=== PATIENT | female | born 1935 | race Caucasian/White ===

== ENCOUNTER 2017-07-22 09:44 | Outpatient (CLI) | payer MEDICARE, OTHER ==
[2017-07-22] MEDS ORDERED: ISOVUE-370 76%-LOCM 1 ML ONE (13:37)
== END 2017-07-22 09:45 | disposition home or self-care (01) ==
LOC: BICCT 09:44
PROVIDERS: ATTEND Urology
DX: R31.0 Gross hematuria (principal); N28.89 Other specified disorders of kidney and ureter; N20.0 Calculus of kidney; K57.30 Diverticulosis of large intestine without perforation or abscess without bleeding; Z90.49 Acquired absence of other specified parts of digestive tract
CPT/HCPCS: 74178

== ENCOUNTER 2018-02-28 16:05 | Inpatient (IN) | payer MEDICARE, OTHER ==
[~2018-02-28 16:05] MED LIST: Lidocaine 1% PF 5 ML VIAL ONE; PROPOFOL 200 MG/20 ML VIAL ONE
[2018-02-28] MEDS ORDERED: Albuterol Sulfate 1.25 MG/3 ML NEB ONE (18:23)
--- NOTE | 2018-02-28 18:26 | RAD ---
RADIOGRAPH CHEST 1 VIEW: 02/28/18 HISTORY: Preoperative clearance for 82-year-old female. FINDINGS: There are no air space densities, pulmonary edema, pneumothorax, or cardiomegaly. The lateral costop hrenic angles are sharp. IMPRESSION: No acute cardiopulmonary findings. mary [] POS: [facility]
[2018-02-28] MEDS ORDERED: Gentamicin Sulfate 370 MG in Sodium Chloride 0.9% 100 ML IVPB SCH (18:30)
[2018-02-28] MEDS ORDERED: Iothalamate Meglumine 60% 50 ML VIAL FS ONE (18:31)
[2018-02-28] MEDS ORDERED: Fentanyl 100 MCG/2 ML VIAL ONE ×2 (18:35→18:38)
[2018-02-28] MEDS ORDERED: Phenylephrine HCL 10 MG/ML VIAL ONE (18:38)
[2018-02-28] MEDS ORDERED: Midazolam HCl 2 mg/2 ml Vial ONE (18:59)
--- NOTE | 2018-02-28 19:13 | CON ---
DATE OF CONSULTATION: 02/28/2018 HISTORY OF PRESENT ILLNESS: This is an 82-year-old white female who was transferred here from the [facility] with an obstructing right UPJ stone and sepsis. She has seen Dr. Rivas before for I think hematur ia and has had a CAT scan done here a few months ago that showed 2 right renal stones that were nonob structing and some renal cysts, a couple of them that were perhaps hyperdense. She was felt to be se ptic at the [facility] and transferred here to our ER emergently. Her temperature was elevated and white co unt was elevated. Her lactic acidosis was elevated. I think her creatinine was nearly normal. I ta lked with ER doctor at the [facility]. He assured me that they did blood and urine cultures. They had give n her 500 of Levaquin. She has got another 250 of Levaquin in the ER here, and she has also got some vancomycin and gentamicin. She is being seen by Anesthesia now and she is having some wheezing. Marcy seble has been trying to see a antique dealer for the last month, but has been not able to, so ended up go ing to the ICU and being intubated overnight. I think Dr. Avendaño will see her and help with her care in terms of her ventilator. PAST MEDICAL HISTORY: She has some diabetes and high blood pressure. 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 She has got an obese abdomen. She is currently being cared for by Anesthesia. Her vital signs from the [facility] shows that her pulse there was around 100 to 110, O2 sats were 92%-93%, temperature was 101.[address] scan done showed she had a cholecystectomy, showed that there were cysts in the kidneys, there was right-sided hydronephrosis with a 6-mm UPJ stone with some perinephric inflammation. White count there was 11.7, her hemoglobin was 15.1. Her creatinine was 1. Her liver function was normal. She had positive nitrites, 31-50 white cells, 1-5 red cells, 4+ bacteria. Lactic acid is 7. IMPRESSION: Obstructing right ureteral stone with sepsis. PLAN: Once her antibiotics, we are going to take her emergently to the cystoscopic suite and do a cy stoscopy, right stent. She will then be intubated in the ICU. She will be under the care of the Del mabry, as well as Dr. Avendaño while she is in the Intensive Care Unit. I will talk with her family, her daughter and son, let them know she is seriously ill and what we are doing in terms of her care.
[2018-02-28] MEDS ORDERED: Ondansetron ODT 4 MG TAB SL PRN (19:46)
[2018-02-28] MEDS ORDERED: Ondansetron HCl/PF 4 MG/2 ML Vial IVP PRN (19:46)
[2018-02-28] MEDS ORDERED: Morphine 2 MG/ML SYRINGE SLOW IVP PRN (19:47)
--- NOTE | 2018-02-28 19:53 | RAD ---
RETROGRADE PYELOGRAM 11 VIEWS: 02/28/18 HISTORY: 82-year-old female with right obstructive uropathy. COMPARISON: No recent CTs or KUBs of the abdomen and pelvis. FINDINGS: The airline mechanic view demonstrates contrast material within dilated right renal pelvis and dilated right carlos al calyces. There is an approximately 5 to 7 mm calcific density structure a short distance inferior to the contrast material in the right renal pelvis presumably in the right UPJ, at the upper L3 level . IV contrast material also fills the urinary bladder. Next, through a cystoscope, a wire is advanced up the right ureter, then into one of the right minor calyces. The wire is replaced by a ureteral stent. The calculus is no longer visualized at the right UPJ on the later images. Both the upper and lower curls of the ureteral stent are formed on the final image, in the right renal pelvis and in the right hemipelvis, respectively. IMPRESSION: 1. Right obstructive uropathy by what is probably a calculus lodged at the right ureteropelvic j unction. 2. Subsequent placement of right ureteral stent, presumably displacing the calculus cephalad int o the renal collecting system. POS: [facility]
[2018-02-28] MEDS ORDERED: Propofol 1,000 MG/100 ML VIAL IV ONE (19:54)
[2018-02-28] MEDS ORDERED: Fentanyl BOLUS 250 ML IVPB PRN (19:56)
[2018-02-28] MEDS ORDERED: Propofol BOLUS 1,000 MG/100 ML VIAL IV PRN (19:56)
[2018-02-28] MEDS ORDERED: DISCONTINUE PREVIOUS NARCOTIC PAIN MEDICATIONS AND BENZODIAZEPINES FS SCH (19:56)
[2018-02-28] MEDS ORDERED: Lorazepam 2 MG/ML VIAL SLOW IVP PRN (19:56)
[2018-02-28] MEDS: Sodium Chloride 0.45% 1,000 ML IV SCH (21:29)
--- NOTE | 2018-02-28 21:35 | PDOC.FPRHP ---
- History of Present Illness Chief Complaint: R flank pain History of Present Illness: Pt. currently intubated in ICU, histories obtained from ER/consult records. Ms. Hansen presented to the med earlier today with increasing confusion and R flank pain. There was concern for sepsis so she was transferred to [facility] ED and found to have an obstructing kidney stone. Seen by Dr. Momin, diagnosed with right obstructing ureteral stone, underwent successful cystoscopty and R stent. Anesthesia concern for wheezing, continued intubation post op, consult Dr. Avendaño. ED Course: CT, Levaquin/vanc/gent, 1L NS, Urology consult with urgent cystoscopy and stent - Allergies/Adverse Reactions Allergies Allergy/AdvReac Type Severity Reaction Status Date / Time amoxicillin trihydrate Allergy Mild Rash Verified 10/26/14 20:11 [From Amoxil] - Home Medications Medication Instructions Recorded Confirmed Type Apixaban [Eliquis] 5 mg PO BID 10/26/14 02/28/18 History Acetaminophen [Tylenol Regular 650 mg PO Q4H PRN #0 tab 10/27/14 02/28/18 Rx Strength] ALPRAZolam [Alprazolam] 0.5 mg PO DAILY PRN 02/28/18 02/28/18 History Escitalopram Oxalate [Lexapro] 20 mg PO DAILY 02/28/18 02/28/18 History Hydrocortisone 5 mg PO BID 02/28/18 02/28/18 History Lisinopril 20 mg PO DAILY 02/28/18 02/28/18 History Rizatriptan Benzoate [Maxalt] 10 mg PO DAILY PRN 02/28/18 02/28/18 History - History PMHx: Nephrolithiasis, HTN, HLD, PE in 2010, anxiety and depression PSHx: IVC filter, Cholecystectomy, hysterectomy, R shoulder FHx: none Social: No TAD - Review of Systems ROS unobtainable: due to endotracheal tube - Vital signs BP: [123/57] HR: [108] RR: [101] Tmax: [101] Pox: [100]% on [ventilator] Wt: [ ] - Physical Exam Constitutional: other (intubated, arousable to touch) HEENT: conjunctiva clear, MMM Neck: supple, trachea midline Chest: no-tender to palpation, no lesions Heart: RRR, normal S1/S2, no murmurs/rubs/gallops Lungs: no respiratory distress, good air movement, other (b/l ronchi) Abdomen: soft, non-tender, other (obese abdomen, bowel sounds abset) Musculoskeletal: normal structure, normal tone Skin: no rash/lesions, good turgor, capillary refill <2 seconds Heme/Lymphatic: no unusual bruising or bleeding, no petechia FMR H&P: Results - Labs Result Diagrams: 03/02/18 04:00 03/02/18 04:00 FMR H&P: A/P - Problem List (1) Calculous pyelonephritis Current Visit: Yes Status: Acute Code(s): N20.0 - CALCULUS OF KIDNEY (2) Sepsis Current Visit: Yes Status: Acute Code(s): A41.9 - SEPSIS, UNSPECIFIED ORGANISM (3) Hypotension Current Visit: Yes Status: Acute (4) Elevated temperature Current Visit: Yes Status: Acute Code(s): R50.9 - FEVER, UNSPECIFIED (5) Compromised respiratory status Current Visit: Yes Status: Acute Code(s): R06.89 - OTHER ABNORMALITIES OF BREATHING - Plan 1. Calculous pyelonephritis, resolved - s/p cycstoscopy with stent placement - gent, vanc, and ceftriaxone - appreciate urology recs - CBC, CMP in AM - cultures obtained 2. Sepsis - vital signs normalized - continuous monitoring in CCU - IVF NS 120 ml/hr 3. Hypotension, resolved - 1 L bolus NS if reoccurs 4. Elevated temperature - likely 2/2 pyelonephritis - cooling protocol - IV tyelenol PRN 5. Compromised respiratory status - currently on ventilator - appreciate Dr. Avendaño recs Disposition/LOS: Monitor in ICU, attempt to obtain additional medical records, await specialist recommendations FMR H&P: Upper Level - Pertinent history 82F transferred from [facility] for obstructing right UPJ stone and sepsis.She had fever, elevated WBC and lactic acidosis. There are printed order from [facility] indicating urine and blood culture has been drawn. She has received levaquin, vanc and gentamicin prior to be taken to OR by Dr. Momin, urology. She had stone removed and uretral stent placed. She was kept intubated over concern about sepsis, per nursing report. She was transferred to ICU. Pulmonology has been consulted. Anesthesia kept patient intubated after cystoscopy as she had wheezing, per nursing report. - Pertinent findings Gen: Sedated HEENT: Intubated. Pupil reactive to light. CV: Tachycardic, rate at 105. Sinus tach on monitor.RRR with no apparent m/g/r. 1/2NS running at 175 ml/hr Resp: Good air movement bilaterally. Patient on SIMV, taking spontaneous breath GI: Currently NPO. Normoactive bowel, no rigidity felt : Rico cather to gravity in. No gross abnormalities seen with urine. Derm: No obvious soft tissue wounds. Neuro: Sedated with fentanyl and propofol - Plan Date/Time: 02/28/182129 I, [Patricio Samano], have evaluated this patient and agree with findings/plan as outlined by chemist internship resident. Pertinent changes/additions are listed here. 1, Nephrolithiasis - S/p cystoscopy with stent placement - Gent, vanc and ceftriaxone started. Will follow up with urology recs - Cultures drawn at [facility]. Plan to follow up with culture result 2. Sepsis secondary to nephrolithasis - Patient has fever, tachycardia, hypotension - Abx as above and fluid. Await culture result. 3. Concern for respiratory failure - Anesthesia after cystoscopy felt patient wasn't ready to be taken off vent yet due to wheezing - Plan to follow up with pulm. Currently patient stating appropriately, taking spontaneous breath on vent Attending Addendum - Attending Addendum Date/Time: 02/28/18 4426 I personally evaluated the patient and discussed the management with Dr. Murdock. I agree with the History, Examination, Assessment and Plan documented above with any addition or exceptions noted below. The patient was transferred from the [facility] septic due to kidney stone and subsequent infection. She has been to the OR for cystoscopy and stent placement. Pt will be treat with broad spectrum antibiotics including vanc, gent and rocephin. Blood and urine cultures are pending at the [facility]. Pt is on the vent. Will continue IV fluids and supportive care. Elevated lactate noted and fever present. Pt will be placed on cooling blanket.
[2018-02-28] MEDS: fentaNYL Citrate/PF 2,000 MCG in Sodium Chloride 0.9% 60 ML IV SCH (21:36)
[2018-02-28 23:11] LABS: Actual Bicarbonate (HCO3a) 19.4 mEq/L (22-28); Base Excess (BEa) -7.1 mEq/L (-2.0 to +3.0); CO2 Tension 42.5 mmHg (35.0-45.0); O2 Tension (PaO2) 75.3 mmHg (> 60.0); pH, Arterial 7.28 (7.35-7.45)
[2018-02-28 23:12] LABS: ALV-art Gradient 441.975 (0-20); Calcium, Ionized 1.14 mmol/L (1.12-1.30); Carboxyhemoglobin (COHb) 1.1 gm% (0.0-3.0); Hemoglobin (Hb) 14.8 g/dL (12.0-16.0); Puncture Site ALINE
[2018-03-01] MEDS: cefTRIAXone\\ROCEPHIN 2 GM in Sodium Chloride 0.9% 100 ML IVPB SCH (00:33)
[2018-03-01 02:09] LABS: Vancomycin, Trough 9.4 ug/mL
--- NOTE | 2018-03-01 02:15 | OP ---
PREOPERATIVE DIAGNOSIS: Right proximal ureteral stone and sepsis. POSTOPERATIVE DIAGNOSIS: Right proximal ureteral stone and sepsis. PROCEDURE PERFORMED: Cysto, right stent. SURGEON: Flex Momin M.D. ANESTHETIC: General. OPERATIVE INDICATIONS: This is an 82-year-old white female with proximal right ureteral stone and hy jeanne and sepsis from a urinary tract source. She has received gentamicin, vancomycin, and Levaquin. She is coming in now for cystoscopy, right stent placement. Her digital experience manager KUB showed she still has contr ast in a hydronephrotic right system coming down to 6 mm right proximal ureteral stone. This is from contrast that was given at the [facility] when she had a CAT scan earlier today. DRAINS PLACED: A 6-Trinidadian x 24 double-J stent, no string attached and an 18-Trinidadian Rico catheter. OPERATIVE TECHNIQUE: After obtaining written and verbal consent from the patient and her family, she was taken to the operating suite. She was placed in a supine position on the treatment table. Plex iPulses were placed on lower extremities and turned on. She was given a general anesthetic, oral int ubation. She was placed in the dorsal lithotomy position, sterilely prepped and draped. She was lucia alexanrdia in dorsal lithotomy position, sterilely prepped and draped. Cystoscopy was performed with a 22-F rench sheath. This was well lubricated, passed under direct vision through the female urethra into t he urinary bladder with aid of a 30-degree lens and video camera and monitor. The bladder wasinflame d. The urine was malodorous and cloudy. We filled and emptied the bladder number of times until it cleared. Right ureteral orifice was identified. Fluoroscopy was used. We could see that there was still contrast in the proximal collecting system from the obstructing stone. We set a guidewire 0.03 8 up to this point, but would not go by it. We fed an open-ended catheter 5-Trinidadian up to this level, and removed the guidewire and brought an angle tipped Glidewire. We manipulated by the stone and en we were able to get the 5-Trinidadian Pollack catheter to go proximal to this. We drained out 20 mL of purulent urine. We thus left contrast in, so we could still see it. We replaced a green guidewire 0.38 through the open-ended catheter and then removed the open-ended catheter and passed a 6 x 24 Juan michelle double-J stent over the guidewire, pushing up into place with aid of a pusher so its proximal en d coiled in the renal pelvis and its distal end coiled in the bladder when the wire was removed. Fol ey catheter was then sterilely inserted, 15 mL placed in the balloon. Vaginal exam was done. She do es have atrophic vaginitis. The urethra was made. This was well set back. We did send the urine fr om the right renal pelvis for culture. She at this point was kept intubated and transferred up to e ICU where she remained intubated.
[2018-03-01 02:25] LABS: ALT (SGPT) 55 U/L (8-55); AST (SGOT) 102 U/L (5-34); Albumin 2.7 g/dL (3.4-4.8); Alkaline Phosphatase 77 U/L (40-150); Anion Gap 17 mmol/L (10-20); BUN (Urea Nitrogen) 17 mg/dL (9.8-20.1); Calc. Creatinine Clearance 49 mL/min (70-130); Calcium 7.6 mg/dL (7.8-10.44); Carbon Dioxide 13 mmol/L (23-31); Chloride 109 mmol/L (98-107); Estimated GFR-MDRD 31; Globulin 2.6 g/dL (2.4-3.5); Glucose 158 mg/dL (83-110); Potassium 3.2 mmol/L (3.5-5.1); Protein, Total 5.3 g/dL (6.0-8.3); Sodium 136 mmol/L (136-145)
[2018-03-01] MEDS: Sodium Chloride 0.45% 1,000 ML IV SCH ×2 (02:25→08:34)
[2018-03-01] MEDS: Acetaminophen 650 MG Suppository PR PRN (02:27)
[2018-03-01] MEDS ORDERED: Albumin 5% 250 ML ONE ×2 (02:40→02:41)
[2018-03-01] MEDS ORDERED: methylPREDNISolone Sod Succ/PF 125 MG/2 ML VIAL IVP SCH (02:45)
[2018-03-01] MEDS ORDERED: Vancomycin HCl 1.5 GM in Sodium Chloride 0.9% 250 ML 300 ML IVPB SCH ×2 (05:00→07:00)
[2018-03-01] MEDS ORDERED: Gentamicin 80 MG/2 ML VIAL IVPB SCH (06:00)
[2018-03-01 06:19] LABS: Hemoglobin 12.5 g/dL (12.0-16.0); Mean Corpuscular HGB CONC 32.3 g/dL (32.0-36.0); Mean Corpuscular Hemoglobin 31.6 pg (27.0-31.0); RBC Distribution Width 13.2 % (11.5-14.5); Red Blood Cell (RBC) Count 3.96 mill/uL (4.20-5.40); White Blood Cell (WBC) Count 16.7 thou/uL (4.8-10.8)
[2018-03-01 06:29] LABS: Band 40 % (5-11); Lymphocytes 2 % (21-51); MDiff Complete? YES; Mean Platelet Volume 8.3 fL (7.4-10.4); Metamyelocyte 9 % (0-0); Monocytes 7 % (0-10); Myelocyte 7 % (0-0); Neutrophil 35 % (42-75); PLT Morphology Comment Appears Decreased; Platelet Count 101 thou/uL (130-400)
--- NOTE | 2018-03-01 06:33 | PDOC.FM ---
- Subjective Subjective: 82 yo female seen at bedside this morning. Patient is intubated. Patient had procedure completed yesterday for obstructed kidney stone. Patient will answer yes/no questions. Patient shakes her head "no" when asked if she is in any pain including chest pain. Patient shakes her head "no" to questions of diabetes, HTN , recent illness. Patient's family was not available at bedside this am. No other history is able to be obtained. - Objective Vital Signs & Weight: Vital Signs (12 hours) Temp Pulse Resp Pulse Ox 03/01/18 03:00 100.9 F H 03/01/18 02:30 95 03/01/18 02:00 102.0 F H 03/01/18 01:00 102.4 F H 03/01/18 00:00 102.5 F H 24 H 02/28/18 23:14 100 02/28/18 22:59 102.7 F H 97 24 H 94 L 02/28/18 22:00 24 H 02/28/18 20:15 24 H 02/28/18 19:53 99 Weight Weight 112.5 kg Most Recent Monitor Data Heart Rate from ECG 81 NIBP 74/36 NIBP BP-Mean 50 Respiration from ECG 22 SpO2 98 I&O: 02/27/18 02/28/18 03/01/18 06:59 06:59 06:59 Intake Total 1774.2 Output Total 465 Balance 1309.2 Result Diagrams: 03/01/18 04:30 03/01/18 01:23 <Yazan Almanzar - Last Filed: 03/01/18 07:08> - Objective Vital Signs & Weight: Vital Signs (12 hours) Temp Pulse Resp BP Pulse Ox 03/01/18 15:43 65 135/66 03/01/18 13:00 98.7 F 03/01/18 12:38 65 102/52 L 03/01/18 12:00 24 H 03/01/18 08:00 24 H 98 03/01/18 07:00 98.8 F 03/01/18 06:55 75 107/48 L 03/01/18 06:00 98.3 F 03/01/18 05:00 99.5 F Weight Weight 112.5 kg Most Recent Monitor Data Heart Rate from ECG 65 NIBP 98/53 NIBP BP-Mean 66 Respiration from ECG 24 SpO2 99 I&O: 02/28/18 03/01/18 03/02/18 06:59 06:59 06:59 Intake Total 2081.7 3000 Output Total 657 80 Balance 1424.7 2920 Result Diagrams: 03/01/18 04:30 03/01/18 01:23 <ShaMarybeth - Last Filed: 03/01/18 16:08> Phys Exam - Physical Examination Constitutional: NAD ET in place Respiratory: no wheezing, clear to auscultation bilateral Cardiovascular: RRR Gastrointestinal: soft, non-tender, no distention, positive bowel sounds Musculoskeletal: no edema, pulses present Neurological: non-focal, moves all 4 limbs Deviation from normal: Intubated and sedated <Yazan Almanzar - Last Filed: 03/01/18 07:08> Dx/Plan (1) Calculous pyelonephritis Code(s): N20.0 - CALCULUS OF KIDNEY Status: Acute (2) Sepsis Code(s): A41.9 - SEPSIS, UNSPECIFIED ORGANISM Status: Acute (3) Postoperative respiratory failure Code(s): J95.821 - ACUTE POSTPROCEDURAL RESPIRATORY FAILURE Status: Acute (4) CASH (acute kidney injury) Code(s): N17.9 - ACUTE KIDNEY FAILURE, UNSPECIFIED Status: Acute - Plan Plan: 1. Calculous pyelonephritis, resolved - s/p cycstoscopy with stent placement - gent, vanc, and ceftriaxone - appreciate urology recs - CBC, CMP in AM - cultures obtained at outside facility and will request when available 2. Sepsis - continuous monitoring in CCU - IVF 1/2NS 175 ml/hr - additional bolus 1L given this AM - Consider BP support with IVF or pressors - likely 2/2 pyelonephritis - cooling protocol - IV tyelenol PRN - Will coordinate for central line placement 3. Respiratory failure - currently on ventilator - appreciate Dr. Avendaño recs 4. CASH - Elevated above baseline - Likely secondary to hypoperfusion - IVF - Monitor renal function Disposition/LOS: Guarded, will continue current plan of care. Will need to obtain additional information from family members or PCP. <Yazan Almanzar - Last Filed: 03/01/18 07:08> Attending Addendum - Attending Addendum Date/Time: 03/01/18 2578 I personally evaluated the patient and discussed the management with Dr. Almanzar. I agree with the History, Examination, Assessment and Plan documented above with any addition or exceptions noted below. The patient is on a cooling blanket. She is on broad spectrum antibiotics. Tachycardia is improved however she is hypotensive. Pt remains on the vent. Cultures are pending at the [facility]. [facility] trend labs. Pulmonology is consulted. Pt may need central line if she remains hypotensive. Continuing IV fluids. Trend lactate. <Marybeth Dalton - Last Filed: 03/01/18 16:08>
[2018-03-01] MEDS ORDERED: Vancomycin Sliding Scale 1 EACH FS ONE (07:00)
[2018-03-01] MEDS ORDERED: Vancomycin HCl 1.25 GM in Sodium Chloride 0.9% 250 ML 250 ML IVPB SCH (07:00)
[2018-03-01] MEDS ORDERED: Vancomycin HCl 1 GM in Premix Bag 1 BAG IVPB SCH (07:00)
[2018-03-01] MEDS ORDERED: Vancomycin HCl 750 MG in Sodium Chloride 0.9% 250 ML 250 ML IVPB SCH (07:00)
[2018-03-01] MEDS ORDERED: HOLD VANCOMYCIN FOR LEVEL >20 FS SCH (07:00)
[2018-03-01 07:11] LABS: Actual Bicarbonate (HCO3a) 15.2 mEq/L (22-28); Base Excess (BEa) -8.6 mEq/L (-2.0 to +3.0); CO2 Tension 27.6 mmHg (35.0-45.0); Calcium, Ionized 1.04 mmol/L (1.12-1.30); Carboxyhemoglobin (COHb) 0.9 gm% (0.0-3.0); Hemoglobin (Hb) 13.3 g/dL (12.0-16.0); O2 Tension (PaO2) 151.4 mmHg (> 60.0); Potassium - ABG Lab 3.88 mmol/L (3.70-5.30); pH, Arterial 7.36 (7.35-7.45)
[2018-03-01 07:13] LABS: Puncture Site ALINE
[2018-03-01] MEDS: Sodium Chloride 0.9% 1,000 ML IV SCH ×6 (08:23→20:05)
--- NOTE | 2018-03-01 09:13 | RAD ---
PORTABLE CHEST 1 VIEW: Date: 03/01/18 Time: 0727 hours HISTORY: Respiratory failure. FINDINGS/IMPRESSION: Comparison made with exam from previous day. Interval placement of endotracheal tube is seen with tip at the level of the clavicular heads. Nasoga stric tube can be traced into the stomach. There is a plate of linear atelectasis in the lingula. No pneumothoraces, lobar consolidation, or large effusions are seen. Small effusions cannot be excluded. POS: [facility]
[2018-03-01 09:40] LABS: Lactic Acid 3.8 mmol/L (0.5-2.2)
[2018-03-01] MEDS ORDERED: Albumin 25% 25 GM/100 ML BOT IVPB SCH (13:15)
[2018-03-01] MEDS ORDERED: Midazolam HCl 2 mg/2 ml Vial ONE (13:41)
[2018-03-01] MEDS ORDERED: Norepinephrine 8 MG/0.9% NS 250 ML ONE (14:29)
[2018-03-01] MEDS: Albumin 25% 25 GM/100 ML BOT IVPB SCH ×2 (14:33→17:47)
--- NOTE | 2018-03-01 15:14 | RAD ---
PORTABLE CHEST 1 VIEW: Date: 03/01/18 Time: 1403 hours HISTORY: Line placement. FINDINGS/IMPRESSION: There has been interval placement of a right internal jugular central line with tip in the projection of the SVC since earlier exam at 0727 hours from the same date. No pneumothorax is seen. Remainder o f the exam is stable. POS: [facility]
[2018-03-01] MEDS ORDERED: Norepinephrine 8 MG/250 ML BAG IVPB PRN (16:43)
[2018-03-01] MEDS ORDERED: Gentamicin Sulfate 400 MG in Sodium Chloride 0.9% 100 ML IVPB SCH (18:00)
[2018-03-01] MEDS: Propofol 1,000 MG/100 ML VIAL IV PRN (19:27)
--- NOTE | 2018-03-01 20:04 | PRG ---
DATE OF SERVICE: 03/01/2018 DATE OF HOSPITAL ADMISSION: 02/28/2018 INITIAL REASON FOR CONSULTATION: Right-sided proximal ureteral stone and sepsis, status post a cysto scopy with right-sided stent placement on 02/28/[address] Flex Momin. BRIEF HISTORY: Ms. Lara Hansen is an unfortunate 82-year-old white female with a history of carlos al calculi as well as other medical issues. She does have a history of DVT and is on anticoagulation for that. The patient was initially admitted to the [facility] where she was fe lt to be septic and was ultimately transferred to the [facility] on 02/28/2018 where she underwent evaluation by Dr. Momin. The patient had the presentation of an obstructing st one and probable sepsis. The patient was taken to the operating room on 02/28/2018 and underwent cys toscopy with right-sided stent placement. The patient's cultures from the [facility] nter have grown out gram negative rods and the patient has been on broad-spectrum antibiotic coverage including Levaquin administered in the ER at the [facility] and additional Levaq uin and gentamicin here. Vancomycin has been added as well. INTERVAL EVENTS: Overnight, the patient has remained intubated following her surgery and has had iss ues with low blood pressure. She has not been responding well to simple fluid resuscitation and has received about 4 liters of IV fluid today after her urine output stopped. The patient did have produ ction of about 15-20 mL of urine after the 4 liters of IV fluid. The patient is being followed by [facility] pulmonology dining manager. PHYSICAL EXAMINATION: NEUROLOGIC: The patient is intubated and sedated. HEAD, EYES, EARS, NOSE, AND THROAT: Patient has a fresh right IJ central venous line, which was just placed. I have reviewed the films from this and this shows no evidence of pneumothorax and has prop er placement in the area of the superior vena cava just above the heart. PULMONARY: Patient is on the ventilator, current rate is 24. CARDIAC: The patient has a current rate of 64, blood pressure is 75/48, relatively low. ABDOMEN: Obese and nontender. GENITOURINARY: Rico catheter is in place and is producing dark-colored urine with a slightly browni sh coloration to it. There may be particulates present in the urine as well. There is a slight clou dy characteristic to it. EXTREMITIES: No gross abnormalities noted. LABORATORY STUDIES: The patient's white count elevated today at 16,700, hemoglobin 12.5, hematocrit 38.8, platelet count relatively low at 101. There are 40% bands and 35% neutrophils. The patient michel s a severe bandemia. ASSESSMENT AND PLAN: 1. Right-sided ureteral calculus, now status post stent, no urinary interventions are required Rico catheter is appropriate at the present time. 2. Hypotension. The patient is responding a little too high rate of fluid resuscitation, fluid jacobo gement currently per the pulmonology dining manager. 3. Infectious Diseases. The patient apparently growing gram-negative rods per the [facility] report. No culture sensitivity available at the present time. Patient is on appropria te broad-spectrum antibiotic coverage. Over 40 minutes of intensive care unit time was spent in evaluation, assessment, and treatment of thi s patient today.
--- NOTE | 2018-03-01 22:55 | OP ---
DATE OF PROCEDURE: 03/01/2018 PROCEDURE: Central line placement. PRODUCT DELIVERY SPECIALIST: Baljinder Avendaño M.D. INDICATION: Ongoing borderline hypotension in spite of aggressive volume resuscitation today. However, the daughter answered questions. Risks of bleeding, infection, lung collapse, and least likely were explained. PROCEDURE IN DETAIL: The patient's right neck was prepped after she was sedated with Versed. Introducer needle was inserted in the jugular vein first pass without difficulty after 5 mL of lidocaine anesthesia. The J-wire was easily passed followed by vein dilator and a triple lumen catheter was sewn in place at 15 cm. No air was aspirated during the procedure. Postprocedure chest radiograph done at 1355 hours, shows the tip in the superior vena cava. No pneumothorax was seen. The patient tolerated the procedure well. Sterile dressing was applied. JAYNA
--- NOTE | 2018-03-01 22:59 | CON ---
DATE OF CONSULTATION: 03/01/2018 HISTORY OF PRESENT ILLNESS: Ms. Hansen is an 82-year-old female, who was transferred here from [facility] with an obstructing ureteropelvic junction stone and clinical sepsis. She underwent emergent intubation, cystoscopy and ureteral stent. I was consulted to assist in her management. PAST MEDICAL HISTORY: Remarkable for; 1. Pulmonary emboli, actually hospitalized here in 2009 with that after presenting with shortness of breath. 2. History of hypertension. 3. History of liver disorder. 4. History of hypothyroidism. 5. History of rheumatoid arthritis. 6. History of TAHBSO. 7. History of a negative Cardiolite stress test in 2000. ALLERGIES: There is reported allergy in the old records to PENICILLIN. FAMILY HISTORY: Positive for vascular disease. SOCIAL HISTORY: She is a nonsmoker, nondrinker in the past. REVIEW OF SYSTEMS: Not obtainable. She is intubated. PHYSICAL EXAMINATION: GENERAL: She actually would make eye contact, move all her extremities to command. VITAL SIGNS: She is afebrile, respiratory rate is 24, heart rate 65, blood pressure 122/71. HEENT: Pupils are equal. Sclerae is anicteric. NECK: Supple. LUNGS: Clear. HEART: Regular rhythm. S1 and S2 are normal. ABDOMEN: Soft and nontender. EXTREMITIES: Without clubbing, cyanosis, or edema. LABORATORY DATA: White count 16.7, hemoglobin 12.5, platelets 101,000. Sodium 136, potassium 3.2, chloride 109, bicarbonate 13, BUN 70, creatinine 1.58. A pH today 7.36, CO2 of 27, pO2 of 151. Blood cultures reported from [facility] growing out gram negative rods. IMPRESSION: 1. Gram-negative sepsis secondary to an obstructing stone and pyelonephritis. 2. Respiratory failure with an ongoing need for mechanical ventilation because of metabolic acidosis and ongoing need for volume resuscitation. 3. Oliguric renal failure. Hopefully, this will turn around with a little time. Critical care time 40 minutes, independent of procedure performed. [facility]
[2018-03-02] MEDS: cefTRIAXone\\ROCEPHIN 2 GM in Sodium Chloride 0.9% 100 ML IVPB SCH ×2 (00:35→23:10)
[2018-03-02] MEDS: Sodium Chloride 0.9% 1,000 ML IV SCH ×3 (00:36→07:35)
[2018-03-02] MEDS: fentaNYL Citrate/PF 2,000 MCG in Sodium Chloride 0.9% 60 ML IV SCH ×2 (01:58→23:06)
[2018-03-02] MEDS: Propofol 1,000 MG/100 ML VIAL IV PRN ×3 (02:11→21:31)
[2018-03-02] MEDS: Albumin 25% 25 GM/100 ML BOT IVPB SCH ×4 (02:12→18:36)
[2018-03-02 05:23] LABS: Vancomycin, Trough 14.9 ug/mL
[2018-03-02] MEDS ORDERED: Gentamicin Sulfate 400 MG in Sodium Chloride 0.9% 100 ML IVPB SCH (06:00)
--- NOTE | 2018-03-02 06:14 | PDOC.FM ---
- Subjective Subjective: 82 yo female seen at bedside this AM. Patient is intubated and sedated. No family is available for interview. Per Nursing Staff, patient is much improved with treatment. No acute changes overnight. - Objective Vital Signs & Weight: Vital Signs (12 hours) Temp Pulse Resp Pulse Ox 03/02/18 04:00 97.5 F L 24 H 03/02/18 01:19 60 03/02/18 00:00 97.8 F 25 H 03/01/18 22:29 59 L 03/01/18 20:00 25 H 97 03/01/18 19:06 62 03/01/18 19:00 97.6 F Weight Weight 112.5 kg Most Recent Monitor Data Heart Rate from ECG 58 NIBP 133/80 NIBP BP-Mean 94 Respiration from ECG 24 SpO2 98 I&O: 02/28/18 03/01/18 03/02/18 06:59 06:59 06:59 Intake Total 2081.7 6590.0 Output Total 657 355 Balance 1424.7 6235.0 Result Diagrams: 03/01/18 04:30 03/01/18 01:23 <Yazan Almanzar - Last Filed: 03/02/18 06:56> - Objective Vital Signs & Weight: Weight Admit Weight 112.491 kg Weight 109.815 kg Most Recent Monitor Data Heart Rate from ECG 93 NIBP 146/84 NIBP BP-Mean 103 Respiration from ECG 17 SpO2 90 Result Diagrams: 03/09/18 04:47 03/10/18 04:50 <Shakila Webb - Last Filed: 03/12/18 10:41> Phys Exam - Physical Examination ET in place Neck: no nodes Respiratory: no wheezing, clear to auscultation bilateral Cardiovascular: RRR, no significant murmur Gastrointestinal: soft, non-tender, no distention, positive bowel sounds Musculoskeletal: pulses present, edema present 1+ bilaterally intubated and sedated Deviation from normal: intubated and sedated <Yazan Almanzar - Last Filed: 03/02/18 06:56> Dx/Plan (2) Calculous pyelonephritis Code(s): N20.0 - CALCULUS OF KIDNEY Status: Acute (3) Sepsis Code(s): A41.9 - SEPSIS, UNSPECIFIED ORGANISM Status: Acute (4) Postoperative respiratory failure Code(s): J95.821 - ACUTE POSTPROCEDURAL RESPIRATORY FAILURE Status: Acute (5) CASH (acute kidney injury) Code(s): N17.9 - ACUTE KIDNEY FAILURE, UNSPECIFIED Status: Acute - Plan Plan: 1. Calculous pyelonephritis, resolved - s/p cycstoscopy with stent placement - gent, vanc, and ceftriaxone - appreciate urology recs - CBC, CMP pending at this time - cultures at outside facility growing gram negative rods, awaiting sensitivities 2. Sepsis - continuous monitoring in CCU - IVF NS @ 200 ml/hr - Levaphed ordered and at 2 mcg - likely 2/2 pyelonephritis - IV tyelenol PRN - Right IJ central line placed 03/[address] Avendaño 3. Respiratory failure - currently on ventilator - appreciate Dr. Avendaño recs - Wean per Pulmonology 4. CASH - Elevated above baseline - Likely secondary to hypoperfusion - IVF - Monitor renal function Disposition: Guarded, will continue current plan of care. <Yazan Almanzar - Last Filed: 03/02/18 06:56> Attending Addendum - Attending Addendum Date/Time: 03/02/18 1029 I personally evaluated the patient and discussed the management with Dr. Almanzar I agree with the History, Examination, Assessment and Plan documented above with any addition or exceptions noted below. 82 yo female transferred from outside facility for severe sepsis related to obstructive nephrolithiasis complicating pyelonephritis HD#2 POD#2 Remains intubated on pressors in the ICU VS reviewed. Labs reviewed. Images reviewed. Sepsis: Improving. Continue pressor support. Appears to be adequately volume resuscitated. Continue emperic antibiotics. Blood and urine cultures pending from outside facility. Pyelonephritis complicated by obstructive nephrolithiasis now s/p removal and stent placement. Urology following. Hypoxic respiratory failure: Remains intubated. Pulm following and managing vent Hyperchloremia: Will stop NS fluids and replace with LR or D5W. Monitor. Prolonged steriod use: Monitor for adrenal insufficiency. Has been receiving IV steroids. CASH: Monitor. Related to pre and post renal issues. Nephro as needed. Monitor bicarb levels, CR, and BUN. Along with other electrolytes. Will continue to monitor closely. Follow up cultures. Follow up pulm and urology recs ABrayMD <Shakila Webb - Last Filed: 03/12/18 10:41>
[2018-03-02 06:58] LABS: Actual Bicarbonate (HCO3a) 14.6 mEq/L (22-28); Base Excess (BEa) -10.6 mEq/L (-2.0 to +3.0); CO2 Tension 30.7 mmHg (35.0-45.0); Calcium, Ionized 0.99 mmol/L (1.12-1.30); Carboxyhemoglobin (COHb) 0.5 gm% (0.0-3.0); Hemoglobin (Hb) 12.2 g/dL (12.0-16.0); O2 Tension (PaO2) 92.8 mmHg (> 60.0); Potassium - ABG Lab 4.17 mmol/L (3.70-5.30)
[2018-03-02 07:00] LABS: Puncture Site ALINE
[2018-03-02 07:01] LABS: ALV-art Gradient 367.925 (0-20)
[2018-03-02 07:07] LABS: ALT (SGPT) 319 U/L (8-55); AST (SGOT) 638 U/L (5-34); Albumin 3.5 g/dL (3.4-4.8); Alkaline Phosphatase 64 U/L (40-150); Anion Gap 15 mmol/L (10-20); BUN (Urea Nitrogen) 32 mg/dL (9.8-20.1); Bilirubin, Total 1.4 mg/dL (0.2-1.2); Calc. Creatinine Clearance 37 mL/min (70-130); Calcium 6.9 mg/dL (7.8-10.44); Carbon Dioxide 13 mmol/L (23-31); Chloride 110 mmol/L (98-107); Estimated GFR-MDRD 23; Globulin 2.2 g/dL (2.4-3.5); Glucose 152 mg/dL (83-110); Potassium 4.2 mmol/L (3.5-5.1); Protein, Total 5.7 g/dL (6.0-8.3); Sodium 134 mmol/L (136-145)
[2018-03-02 08:22] LABS: Band 45 % (5-11); Hemoglobin 11.6 g/dL (12.0-16.0); Lymphocytes 6 % (21-51); MDiff Complete? YES; Mean Corpuscular HGB CONC 32.7 g/dL (32.0-36.0); Mean Corpuscular Hemoglobin 32.2 pg (27.0-31.0); Mean Corpuscular Volume 98.5 fL (78.0-98.0); Mean Platelet Volume 8.8 fL (7.4-10.4); Metamyelocyte 8 % (0-0); Monocytes 2 % (0-10); Myelocyte 1 % (0-0); Neutrophil 37 % (42-75); PLT Morphology Comment Appears Decreased; Platelet Count 82 thou/uL (130-400); Polychromasia SLIGHT = 2-3 cells (100X) (0-2/hpf); RBC Distribution Width 13.7 % (11.5-14.5); Reactive Lymphocytes 1 % (0-10); Red Blood Cell (RBC) Count 3.61 mill/uL (4.20-5.40); Reflex for Review?? NO; Vacuoles MODERATE; White Blood Cell (WBC) Count 16.1 thou/uL (4.8-10.8)
--- NOTE | 2018-03-02 08:46 | RAD ---
PORTABLE CHEST: COMPARISON: 03/01/18. HISTORY: Central line placement. FINDINGS: Stable right-sided internal jugular central venous catheter, nasogastric tube, and endotracheal tube. Stable atherosclerosis. Patchy interstitial opacities are redemonstrated. Persistent obscuration of left hemidiaphragm due to pleural effusion with adjacent parenchymal change. IMPRESSION: No change. POS: [facility]
[2018-03-02] MEDS ORDERED: Sodium Chloride 0.45% 1,000 ML IV SCH (09:45)
--- NOTE | 2018-03-02 10:09 | PRG ---
DATE OF SERVICE: 03/02/2018 PHYSICAL EXAMINATION: VITAL SIGNS: Ms. Hansen is afebrile. Her last temperature was at 4:00 yesterday morning. Heart rate 63, blood pressure 154/75. Intake and output is positive 6742. Urine output appears to be increasing. It was about 10 mL an hour yesterday afternoon and it is up t o 25-30 mL an hour now. LUNGS: Her lungs are clear anteriorly. HEART: Regular rhythm. ABDOMEN: Abdomen is soft. EXTREMITIES: Without asymmetry. IMAGING: Chest radiograph today is unchanged. She will move all of her extremities spontaneously. LABORATORY DATA: White count 16.1, hemoglobin 11.6, platelets 82,000. Sodium 134, potassium 4.2, chloride 110, bicarbonate 13, BUN 32, creatinine 2.06. IMPRESSION: 1. Sepsis. There are no blood cultures done here, but there apparently is a blood culture growing a gram negative at [facility]. We need to get the ID when this is available. 2. Status post ureteral stent. 3. Acute renal failure on top of chronic kidney disease. 4. Respiratory failure, currently not weanable. 5. Mild hyperchloremia. We will switch her IV fluids and cut back on her rate, given her significan t positive fluid balance. Nephrology, probably needs to be consulted at some point. Critical care time was 30 minutes. Her acid base status is fine at this point, although she remains acidemic, some of this is hyperchlor emic. Some of this is secondary to sepsis and some of this is secondary to acute renal dysfunction. Her pH 7.3, CO2 of 30, pO2 of 92.
--- NOTE | 2018-03-02 12:18 | PRG ---
DATE OF SERVICE: 03/02/2018 SUBJECTIVE: Over the weekend the patient was admitted with obstructing stone and urosepsis from a ur inary tract infection and Dr. Momin took her for an urgent stent on 02/28/2018 after she had been em ergently transferred from the [facility] and postoperatively she has remain intubated and sedated. Her blood pressure has improved. She is requiring minimal support from the Levophed, but when it is turned off her blood pressure does dip still. Her urine output has improved and picked up. PHYSICAL EXAMINATION: GENERAL: She is intubated and sedated. VITAL SIGNS: Her T-max was 102.7 on 02/28/2018 at 11:00 p.m. and it has only come down since then, c urrent was 98.2. There are occasions where her blood pressure does appear to be improving and not as high as 163/80, last checked was 141/79, heart rate in the 60s. She has had at least 600 urine outp ut for the last 24 hours. She is intubated and sedated with a Rico catheter that has tea-colored ur ine in the bag, but now in the tubing it is yellow. LABORATORY DATA: Reveal a white count that has remained stable as opposed to going down with the ban ds going up slightly from 40-45. Her chemistries show a rising creatinine, with BUN despite the aggr essive hydration she is getting, now it is 32 and 2.06. There is no urinalysis or culture in this st ay, but there is a culture pending from [facility] which we are awaiting results for. Her ABG has a pH of 7.3, pCO2 of 30.7, pO2 of 92.8. CT scan from [facility] was reviewed personally and shows no stones on the left, bilateral simple cysts, a right proximal 9-10 x 6-7 mm ureteral stone with significant hydronephrosis. No other renal stone s on the right noted. Of note, the ureter distal to the stone is tortuous and goes to, if not slight ly across midline before going down and the stone is at the level during her IVC filter and tortuous calcified aorta. The retrograde pyelogram images reviewed reveal the stone was easily seen before a retrograde was per formed in similar position to the CT scan. ASSESSMENT AND PLAN: I spoke with the son and daughter at the bedside and reviewed the events of the weekend and how the stent is allowing that kidney to drain and keeping this in a safe zone from obst ruction with infection; however, the infection is still severe and her body is reacting accordingly. I reviewed I am concerned about the rising creatinine, but she was given contrast with the CT scan, this is likely a contributing factor. We discussed how it will be a long road to recovery and ultima tely the stone would be treated as an outpatient once she is discharged. We reviewed as well uretero scopy and my concerns with both, but one or the other would be required for treatment of the stone be fore the stent could come out. In assessment we have an 82-year-old female status post urgent stent on 02/28/2018 for obstructing ri ght proximal large stone with urosepsis requiring significant pulmonary and cardiovascular support, a lthough improving. I would continue the current treatment per the ICU team and if there are concerns for a spike in temperature or significant rise in white count, then I would reimage her kidneys, but for now, just continue supportive care.
[2018-03-02] MEDS ORDERED: Sodium Bicarbonate 150 MEQ in Dextrose 5% in Water 1,000 ML IV SCH (16:45)
[2018-03-03] MEDS: Albumin 25% 25 GM/100 ML BOT IVPB SCH ×4 (01:11→17:32)
[2018-03-03] MEDS: Propofol 1,000 MG/100 ML VIAL IV PRN ×3 (04:06→18:08)
--- NOTE | 2018-03-03 06:09 | PDOC.FM ---
- Subjective Subjective: 82 yo female seen at bedside this AM. Patient is intubated and sedated. Patient will move all four extremities to commands. Patient is maintaining her BP on her own without pressors this morning. No other history is able to be obtained. - Objective Vital Signs & Weight: Vital Signs (12 hours) Temp Resp Pulse Ox 03/03/18 06:00 24 H 03/03/18 04:00 99.0 F 24 H 03/03/18 02:00 24 H 03/03/18 00:00 99.2 F 24 H 03/02/18 22:00 24 H 03/02/18 20:00 99.2 F 24 H 95 Weight Admit Weight 112.491 kg Weight 112.5 kg Most Recent Monitor Data Heart Rate from ECG 71 NIBP 140/73 NIBP BP-Mean 84 Respiration from ECG 24 SpO2 93 I&O: 03/01/18 03/02/18 03/03/18 06:59 06:59 06:59 Intake Total 2081.7 7142.4 3210.7 Output Total 443 179 1074 Balance 1424.7 6742.4 1110.7 Result Diagrams: 03/02/18 04:00 03/03/18 06:30 <Yazan Almanzar - Last Filed: 03/03/18 10:21> - Objective Vital Signs & Weight: Weight Admit Weight 112.491 kg Weight 109.815 kg Most Recent Monitor Data Heart Rate from ECG 93 NIBP 146/84 NIBP BP-Mean 103 Respiration from ECG 17 SpO2 90 Result Diagrams: 03/09/18 04:47 03/10/18 04:50 <Shakila Webb - Last Filed: 03/12/18 11:57> Phys Exam - Physical Examination ET in place Neck: no JVD Right IJ in place Respiratory: no wheezing, clear to auscultation bilateral Cardiovascular: RRR, no significant murmur Gastrointestinal: soft, non-tender, no distention, positive bowel sounds Musculoskeletal: no edema, pulses present Neurological: moves all 4 limbs Intubated and sedated Deviation from normal: Intubated and sedated Skin: no rash <Yazan Almanzar - Last Filed: 03/03/18 10:21> Dx/Plan (1) Metabolic encephalopathy Code(s): G93.41 - METABOLIC ENCEPHALOPATHY Status: Acute (2) Calculous pyelonephritis Code(s): N20.0 - CALCULUS OF KIDNEY Status: Acute (3) Sepsis Code(s): A41.9 - SEPSIS, UNSPECIFIED ORGANISM Status: Acute (4) Postoperative respiratory failure Code(s): J95.821 - ACUTE POSTPROCEDURAL RESPIRATORY FAILURE Status: Acute (5) CASH (acute kidney injury) Code(s): N17.9 - ACUTE KIDNEY FAILURE, UNSPECIFIED Status: Acute - Plan Plan: 1. Metabolic encephalopathy - Secondary to sepsis - Currently intubated and sedated - Continue supportive care 2. Calculous pyelonephritis, resolved - s/p cycstoscopy with stent placement - gent, vanc, and ceftriaxone - appreciate urology recs - CBC, CMP pending at this time - cultures at outside facility growing gram negative rods, awaiting sensitivities - Urine culture growing gram negative marissa, awaiting sensitivities 3. Sepsis - continuous monitoring in CCU - Resolved - likely 2/2 pyelonephritis - IV tyelenol PRN - IVF likely need changed due to hypochloremia - Right IJ central line placed 03/[address] Avendaño 4. Respiratory failure - currently on ventilator - appreciate Dr. Avendaño recs - Wean per Pulmonology 5. CASH - Elevated above baseline - Nephrology consulted, appreciate Dr. Allan's recommendations - Likely secondary to hypoperfusion - IVF changed to 1/2NS today - Monitor renal function Disposition: Guarded, will continue current plan of care. <Yazan Almanzar - Last Filed: 03/03/18 10:21> Attending Addendum - Attending Addendum Date/Time: 03/03/18 1152 I personally evaluated the patient and discussed the management with Dr. Almanzar I agree with the History, Examination, Assessment and Plan documented above with any addition or exceptions noted below. 82 yo female transferred from outside facility for severe sepsis related to obstructive nephrolithiasis complicating pyelonephritis HD#3 POD#3 Remains intubated in ICU. Following commands. No longer requiring pressor support. Afebrile. VS reviewed. Labs reviewed. Images reviewed. Sepsis: Resolved. Off pressor support. Appears to be adequately volume resuscitated. Continue emperic antibiotics. Awaiting outside blood and urine cultures. Inhouse urine culture to be resulted today. Follow up closely. Pyelonephritis complicated by obstructive nephrolithiasis now s/p removal and stent placement. Urology following. Urine culture to be completed today. Follow up closely to adjust antibiotics. Hypoxic respiratory failure: Remains intubated. Pulm following and managing vent Hyperchloremia: Will stop NS fluids and replace with LR or D5W. Monitor. Slowly trending up. Prolonged steriod use: Monitor for adrenal insufficiency. Has been receiving IV steroids. BP stable. CASH: Improving. Continue to monitor. Related to pre and post renal issues. Nephro as needed. Monitor bicarb levels, CR, and BUN. Along with other electrolytes. Will continue to monitor closely. Follow up cultures. Follow up pulm and urology recs. Nephro as needed. Tegan <Shakila Webb - Last Filed: 03/12/18 11:57>
[2018-03-03 06:34] LABS: Actual Bicarbonate (HCO3a) 16.3 mEq/L (22-28); Base Excess (BEa) -6.5 mEq/L (-2.0 to +3.0); Calcium, Ionized 0.98 mmol/L (1.12-1.30); Carboxyhemoglobin (COHb) 0.3 gm% (0.0-3.0); Hemoglobin (Hb) 11.3 g/dL (12.0-16.0); O2 Tension (PaO2) 90.6 mmHg (> 60.0); Potassium - ABG Lab 3.43 mmol/L (3.70-5.30); pH, Arterial 7.44 (7.35-7.45)
[2018-03-03 06:37] LABS: CO2 Tension 24.8 mmHg (35.0-45.0); Puncture Site ALINE
[2018-03-03 07:03] LABS: Anion Gap 14 mmol/L (10-20); BUN (Urea Nitrogen) 41 mg/dL (9.8-20.1); Calc. Creatinine Clearance 41 mL/min (70-130); Calcium 7.2 mg/dL (7.8-10.44); Carbon Dioxide 17 mmol/L (23-31); Chloride 111 mmol/L (98-107); Estimated GFR-MDRD 26; Glucose 173 mg/dL (83-110); Potassium 3.5 mmol/L (3.5-5.1); Sodium 138 mmol/L (136-145)
--- NOTE | 2018-03-03 08:05 | RAD ---
CHEST ONE VIEW: History: Dyspnea. Follow up. Comparison: 03-02-18 FINDINGS: Cardiac silhouette is magnified by projection. Pulmonary vasculature remains engorged with patchy bib asilar infiltrates. Mediastinum is midline. Lines and tubes are unchanged in position. No evidence of pneumothorax. IMPRESSION: Pulmonary vascular congestion and other findings are stable. POS: [facility]
--- NOTE | 2018-03-03 08:42 | CON ---
DATE OF CONSULTATION: 03/02/2018 CONSULTING PHYSICIAN: Dr. Almanzar. REASON FOR CONSULTATION: Acute kidney injury. REASON FOR ADMISSION: Confusion, right flank pain, and sepsis. HISTORY OF PRESENT ILLNESS: An 82-year-old female who was seen in ICU with a past medical history po sitive for nephrolithiasis, hypertension, hyperlipidemia, anxiety, and depression. This patient was seen in the ER for confusion and the patient had recently right-sided obstructing ureteral stone and had cystoscopy with right ureteral stent and was found to have sepsis with E. coli. Currently, she i s in ICU, intubated, and not able to give a good history. Nephrology is consulted for acute kidney i njury. Her creatinine was found to be elevated at 2.06 with a bicarbonate level of 13. Nephrology c onsulted for volume management. PAST MEDICAL HISTORY: Positive for nephrolithiasis, hypertension, hyperlipidemia, PE, anxiety, depre ssion. PAST SURGICAL HISTORY: IVC filter, cholecystectomy, hysterectomy, right shoulder surgery. HOME MEDICATIONS: Include Eliquis, Maxalt, lisinopril, hydrocortisone, Lexapro, alprazolam, and Tyle nol. ALLERGIES: AMOXICILLIN. SOCIAL HISTORY: No smoking, alcohol, or illicit drug abuse. FAMILY HISTORY: No history of kidney disease. REVIEW OF SYSTEMS: Could not be obtained due to intubation. PHYSICAL EXAMINATION: GENERAL: This is an elderly female seen in ICU, intubated. VITAL SIGNS: Temperature 96, pulse 70, respiratory rate 24, blood pressure 111/82. HEENT: Intubated. CARDIOVASCULAR: S1, S2 heard. Rate and rhythm regular. RESPIRATORY: Clear. GASTROINTESTINAL: Abdomen is soft. MUSCULOSKELETAL: 1+ edema. DERMATOLOGIC: . NEUROLOGIC: Intubated and sedated. LABORATORY DATA: Hemoglobin is 11.6, potassium is 4.2, BUN is 32, creatinine is 2.06, bicarbonate 13 , and lactate is 3.8. PH was 7.30. ASSESSMENT AND PLAN: 1. Acute kidney injury, most likely volume depletion. Urine output seems to be picking up and we wi ll continue on intravenous fluids as tolerated. Avoid nephrotoxins. 2. Metabolic acidosis. We will add bicarbonate to IV fluids. 3. Elevated liver enzymes. 4. Hypoalbuminemia, better. 5. Hypokalemia, better. 6. Anemia, mild. 7. Acute hypoxic respiratory failure, intubated. 8. Septic shock. Continue supportive care and antibiotics. 9. Escherichia coli sepsis. Continue antibiotics and follow up cultures. 10. Prognosis is guarded. Family updated. We will continue on IV fluids. Avoid nephrotoxins and r enally dose all the medications. Continue supportive care including antibiotics. We will follow. Thank you for the consult.
[2018-03-03] MEDS: Sodium Chloride 0.45% 1,000 ML IV SCH ×2 (10:46→21:44)
[2018-03-03] MEDS: Potassium Chloride 20 MEQ in Premix Bag 1 BAG IVPB SCH ×2 (12:18→17:20)
[2018-03-03 12:47] LABS: Hemoglobin 11.6 g/dL (12.0-16.0); Mean Corpuscular HGB CONC 33.5 g/dL (32.0-36.0); Mean Corpuscular Hemoglobin 32.2 pg (27.0-31.0); Mean Corpuscular Volume 96.2 fL (78.0-98.0); Mean Platelet Volume 9.9 fL (7.4-10.4); Platelet Count 64 thou/uL (130-400); RBC Distribution Width 13.4 % (11.5-14.5); Red Blood Cell (RBC) Count 3.59 mill/uL (4.20-5.40); White Blood Cell (WBC) Count 9.3 thou/uL (4.8-10.8)
[2018-03-03 14:00] LABS: Band 22 % (5-11); Lymphocytes 9 % (21-51); MDiff Complete? YES; Metamyelocyte 3 % (0-0); Monocytes 3 % (0-10); Neutrophil 63 % (42-75); PLT Morphology Comment Appears Decreased
--- NOTE | 2018-03-03 16:03 | PRG ---
DATE OF SERVICE: 03/03/2018 SUBJECTIVE: Lara Hansen is still sedated for mechanical ventilation. OBJECTIVE: VITAL SIGNS: Blood pressure is better. She is off Levophed this morning. She is 100/49 this aftern oon, heart rate is in the 70s. She is in sinus rhythm, respiratory rate 16. LUNGS: Clear. CARDIOVASCULAR: Regular rhythm. ABDOMEN: Soft, protuberant. EXTREMITIES: Without clubbing, cyanosis, or edema. Chest radiograph shows mild increase in interstitial markings. There is no change overall. Intake and output is positive 1110 mL Sodium 130, potassium 3.5, chloride 111, bicarbonate 17, BUN 41, creatinine 1.88. She is down from 2 .06 yesterday. A pH 7.44, CO2 24, pO2 90. LABORATORY DATA: White count 9.3, hemoglobin 11.6, platelets 64,000. IMPRESSION: 1. Respiratory failure. 2. Clinical sepsis secondary to an obstructing stone with Klebsiella growing out of her urine. 3. Apparently, there are no blood cultures. 4. Oliguric renal failure that appears to have turned around. 5. Thrombocytopenia secondary to her clinical sepsis. 6. Extreme deconditioning per the family. She is extremely sedentary. PLAN: Decrease her ventilatory support. Her rate was turned down from 22 to 14. Her PEEP was turne d down to 8. She is on 50% FIO2, appears to be tolerating this well. We will continue to decrease h er ventilatory support. She may do better with Precedex and propofol to facilitate weaning. Critical care time was 30 minutes.
[2018-03-03] MEDS: fentaNYL Citrate/PF 2,000 MCG in Sodium Chloride 0.9% 60 ML IV SCH (18:08)
--- NOTE | 2018-03-03 18:39 | PRG ---
DATE OF SERVICE: 03/03/2018 SUBJECTIVE: The patient seen and examined in ICU. Remains intubated and nonverbal. OBJECTIVE: GENERAL: This is an elderly female, seen in ICU, intubated. VITAL SIGNS: Temperature 99.0, pulse 77, respiratory rate 18, blood pressure 105/57. HEENT: Intubated. CARDIOVASCULAR: S1 and S2 heard. RESPIRATORY: Clear anteriorly. GASTROINTESTINAL: Abdomen is soft. MUSCULOSKELETAL: 1+ edema. DERMATOLOGIC: No skin rash. NEUROLOGIC: Intubated. LABORATORY DATA: Potassium is 3.5, BUN 41, creatinine 1.8, bicarbonate is 17. ASSESSMENT AND PLAN: 1. Acute kidney injury. Renal function seems to be better, 1.8, with improvement in urine output. We will continue to monitor. Avoid nephrotoxins, continue supportive care. 2. Hypokalemia, replace and monitor. 3. Acute hypoxic respiratory failure. 4. Septic shock. 5. Escherichia coli sepsis. 6. Avoid nephrotoxins. We will continue supportive care and bicarbonate drip given yesterday and we will stop and monitor. Thank you for the consult.
[2018-03-03] MEDS: cefTRIAXone\\ROCEPHIN 2 GM in Sodium Chloride 0.9% 100 ML IVPB SCH (21:44)
[2018-03-04] MEDS: Sodium Chloride 0.45% 1,000 ML IV SCH ×3 (05:34→21:02)
[2018-03-04 05:41] LABS: Anion Gap 15 mmol/L (10-20); BUN (Urea Nitrogen) 41 mg/dL (9.8-20.1); Calc. Creatinine Clearance 52 mL/min (70-130); Carbon Dioxide 16 mmol/L (23-31); Chloride 112 mmol/L (98-107); Estimated GFR-MDRD 34; Glucose 117 mg/dL (83-110); Potassium 3.7 mmol/L (3.5-5.1); Sodium 139 mmol/L (136-145)
[2018-03-04] MEDS ORDERED: Gentamicin Sulfate 400 MG in Sodium Chloride 0.9% 100 ML IVPB SCH (06:00)
--- NOTE | 2018-03-04 06:33 | PDOC.FM ---
- Subjective Subjective: 82 yo female seen at bedside this AM. Patient is intubated and sedated. Patient' s nurse states that she had a good night and they have transitioned sedation to Precedex to hopefully wean her off of the ventilator today. Patient's nurse also states that an OOH-DNR was brought to the chart yesterday and that her daughter would be up later today for further discussions. No other history is able to be obtained. - Objective Vital Signs & Weight: Vital Signs (12 hours) Temp Pulse Resp BP Pulse Ox 03/04/18 04:00 98.7 F 14 03/04/18 03:47 68 147/69 H 03/04/18 02:00 14 03/04/18 00:00 98.6 F 14 03/03/18 23:41 68 111/59 L 03/03/18 22:00 14 03/03/18 20:00 97.9 F 14 96 03/03/18 19:24 83 117/61 Weight Admit Weight 112.491 kg Weight 112.627 kg Most Recent Monitor Data Heart Rate from ECG 69 NIBP 155/73 NIBP BP-Mean 97 Respiration from ECG 23 SpO2 94 I&O: 03/02/18 03/03/18 03/04/18 06:59 06:59 06:59 Intake Total 7142.4 3210.7 2729.9 Output Total 400 2100 1940 Balance 6742.4 1110.7 789.9 Result Diagrams: 03/03/18 12:38 03/04/18 05:00 <Yazan Almanzar - Last Filed: 03/04/18 10:05> - Objective Vital Signs & Weight: Weight Admit Weight 112.491 kg Weight 109.815 kg Most Recent Monitor Data Heart Rate from ECG 93 NIBP 146/84 NIBP BP-Mean 103 Respiration from ECG 17 SpO2 90 Result Diagrams: 03/09/18 04:47 03/10/18 04:50 <Shakila Webb - Last Filed: 03/12/18 12:05> Phys Exam - Physical Examination Constitutional: NAD ET in place Right IJ in place Respiratory: no wheezing, clear to auscultation bilateral Cardiovascular: RRR, no significant murmur Gastrointestinal: soft, non-tender, no distention, positive bowel sounds Musculoskeletal: no edema, pulses present intubated and sedated Deviation from normal: intubated and sedated <Yazan Almanzar - Last Filed: 03/04/18 10:05> Dx/Plan (1) Metabolic encephalopathy Code(s): G93.41 - METABOLIC ENCEPHALOPATHY Status: Acute (2) Calculous pyelonephritis Code(s): N20.0 - CALCULUS OF KIDNEY Status: Acute (3) Sepsis Code(s): A41.9 - SEPSIS, UNSPECIFIED ORGANISM Status: Acute (4) Postoperative respiratory failure Code(s): J95.821 - ACUTE POSTPROCEDURAL RESPIRATORY FAILURE Status: Acute (5) CASH (acute kidney injury) Code(s): N17.9 - ACUTE KIDNEY FAILURE, UNSPECIFIED Status: Acute (6) Thrombocytopenia Code(s): D69.6 - THROMBOCYTOPENIA, UNSPECIFIED Status: Acute - Plan Plan: 1. Metabolic encephalopathy - Secondary to sepsis - Currently intubated and sedated - Continue supportive care with plan for extubation today as tolerated 2. Calculous pyelonephritis, resolved - s/p cycstoscopy with stent placement - Rocephin - appreciate urology recs - Blood cultures from [facility] grew Klebsiella species sensitive to Rocephin - Urine cultures from this facility grew Klebsiella species sensitive to Rocephin 3. Sepsis - continuous monitoring in CCU - Resolved - likely 2/2 pyelonephritis - IV tyelenol PRN - IVF likely need changed due to hypochloremia - Right IJ central line placed 03/[address] Avendaño 4. Respiratory failure - currently on ventilator - appreciate Dr. Avendaño recs - Wean per Pulmonology 5. CASH - Elevated above baseline - Nephrology consulted, appreciate Dr. Allan's recommendations - Likely secondary to hypoperfusion - IVF changed to 1/2NS @ 100 - Improved this AM - Continue to monitor and avoid nephrotoxic agents 6. Thrombocytopenia - Recheck H&H with Platelets - Likely secondary to sepsis - Monitor for signs/symptoms of bleeding Disposition: Guarded, will continue current plan of care and look to wean off ventilator today. <Yazan Almanzar - Last Filed: 03/04/18 10:05> Attending Addendum - Attending Addendum Date/Time: 03/04/18 5468 I personally evaluated the patient and discussed the management with Dr. Almanzar I agree with the History, Examination, Assessment and Plan documented above with any addition or exceptions noted below. 82 yo female transferred from outside facility for severe sepsis related to obstructive nephrolithiasis complicating pyelonephritis HD#4 POD#4 Remains intubated in ICU. Afebrile. VS reviewed. Labs reviewed. Images reviewed. Sepsis: Resolved. Off pressor support. Appears to be adequately volume resuscitated. Blood and urine positive for Klebsiella species. Sensitivities reviewed. Will continue Rocephin. Procal not initially trended. Could consider ordering to monitor resolution and help with antibiotic use. Pyelonephritis complicated by obstructive nephrolithiasis now s/p removal and stent placement. Urology following. Klebsiella bacteremia: Remains afebrile. Will need repeat blood cultures to note resolution of bacteremia. Consider 10 to 14 day treatment course, especially since patient remains afebrile. Hypoxic respiratory failure: Remains intubated. Pulm following and managing vent Hyperchloremia: Will stop NS fluids and replace with LR or D5W. Monitor. Slowly trending up. Need to increase Free H2O flush in NG. Prolonged steriod use: Monitor for adrenal insufficiency. Has been receiving IV steroids. BP stable. CASH: Improving. Continue to monitor. Related to pre and post renal issues. Nephro following. Monitor bicarb levels, CR, and BUN. Check mag. On bicarb drip Will continue to monitor closely. addictions recovery specialist recs. Tegan <Shakila Webb - Last Filed: 03/12/18 12:05>
[2018-03-04 07:51] LABS: Actual Bicarbonate (HCO3a) 17.2 mEq/L (22-28); CO2 Tension 27.6 mmHg (35.0-45.0); Calcium, Ionized 1.09 mmol/L (1.12-1.30); Hemoglobin (Hb) 12.4 g/dL (12.0-16.0); Potassium - ABG Lab 3.83 mmol/L (3.70-5.30); pH, Arterial 7.41 (7.35-7.45)
[2018-03-04 07:53] LABS: Puncture Site ALINE
--- NOTE | 2018-03-04 08:59 | RAD ---
ONE VIEW CHEST: Comparison: 03-03-18 History: Intubated patient. FINDINGS: There is a redemonstration of endotracheal tube, nasogastric tube, and a right side central venous ca theter, unchanged. Left sided pleural effusions and bilateral parenchymal changes are again noted. No definite pneumothorax. IMPRESSION: 1. Bibasilar parenchymal changes. Left sided pleural effusion. 2. Stable lines and tubes. POS: [facility]
[2018-03-04] MEDS: Pantoprazole 40 MG VIAL IVP SCH (09:00)
--- NOTE | 2018-03-04 09:44 | PRG ---
DATE OF SERVICE: 03/03/2018 SUBJECTIVE: The patient continued to improve overnight, but she is still intubated and sedated. Her urine output is increased and she has been able to come off of the pressors. OBJECTIVE: VITAL SIGNS: Her T-max was 99.5 and current 98.2, blood pressure is stable in the low 110s for systo lic, heart rate in the 70s. GENITOURINARY: Urine output was almost 2 liters for the past 24 hours. She is intubated and sedated with the Rico draining yellow urine. A daughter is at the bedside and I reviewed the case with her. LABORATORY DATA: Reveal a creatinine that is improving to 1.88. There is no CBC, so I asked them to send this and microbiology shows that she has Klebsiella pneumoniae which has multiple sensitivities from a urine sample presumably from the OR on 02/28/2018. ASSESSMENT: We have an 82-year-old female status post urgent stent for obstructing stone with urosep sis generally improving. Antibiotics can be tailored accordingly and ICU team will continue to monit or for progress regarding extubation.
--- NOTE | 2018-03-04 09:50 | PRG ---
DATE OF SERVICE: 03/04/2018 SUBJECTIVE: No new events overnight. She has remained off the Levophed. Her urine output has continued to be good. They attempted to try to wean her off of extubation yesterday, but she was unable to do this. PHYSICAL EXAMINATION: VITAL SIGNS: T-max 99.9, current 98.7, blood pressure and heart rate stable. Urine output has been again close to 2 liters for a 24 hour period. On exam, she is intubated and sedated and the Rico is draining yellow urine. There is no family at the bedside at this time. LABORATORY: Creatinine continues to improve at 1.49. There is no CBC, however , her H&H were stable yesterday and her white count was back to normal, but her platelets were low. I suspect these will start to trend up, but may need to be monitored. As previously reported her urine is growing Klebsiella and she is on ceftriaxone for this. ASSESSMENT AND PLAN: An 82-year-old female status post urgent stent done on for obstructing stone with urosepsis, slowly improving. The ICU team planning to try to wean and extubate her as tolerated. Continue antibiotics and monitor. MTDD
[2018-03-04] MEDS ORDERED: Bisacodyl 10 MG SUPP PR PRN (10:03)
[2018-03-04 10:32] LABS: Hemoglobin 12.3 g/dL (12.0-16.0); Platelet Count 57 thou/uL (130-400)
[2018-03-04] MEDS: hydrALAZINE 20 MG/ML VIAL SLOW IVP PRN (12:40)
[2018-03-04] MEDS ORDERED: Furosemide 100 MG/10 ML VIAL SLOW IVP SCH ×2 (12:45→20:00)
[2018-03-04] MEDS: fentaNYL Citrate/PF 2,000 MCG in Sodium Chloride 0.9% 60 ML IV SCH (17:15)
--- NOTE | 2018-03-04 17:41 | PRG ---
DATE OF SERVICE: 03/04/2018 SUBJECTIVE: The patient was seen and examined in ICU, patient remains intubated. Family at the beds kat. The patient is making urine. OBJECTIVE: GENERAL: This is an elderly female who is in ICU. VITAL SIGNS: Temperature 99.5, pulse 70, respiratory rate 18, blood pressure 124/54. HEENT: Intubated. CARDIOVASCULAR: S1, S2 heard. Rate and rhythm regular. RESPIRATORY: Clear. GASTROINTESTINAL: Soft. MUSCULOSKELETAL: 1+ edema. DERMATOLOGIC: No rash. PSYCHIATRIC: Intubated. LABORATORY DATA: Potassium is 3.7, bicarbonate is 16, BUN is 41, creatinine is 1.4. ASSESSMENT AND PLAN: 1. Acute kidney injury. Renal function is getting better. Continue hydration, avoid nephrotoxins. Continue supportive care. 2. Septic shock. 3. Hypokalemia, replace. 4. Hypoxic respiratory failure. 5. Chronic history of hypertension. 6. Metabolic acidosis, stable. 7. Renal function getting better. Avoid nephrotoxins. We will follow.
--- NOTE | 2018-03-04 18:13 | PRG ---
DATE OF SERVICE: 03/04/2018 SUBJECTIVE: Ms. Hansen had her Diprivan turned off. Her fentanyl was a low dose and she awakened with that. OBJECTIVE: VITAL SIGNS: Respiratory rate was in the 30s, temperature is 100.5, respiratory rate is 19, blood pr essure 124/54, heart rate 70. LUNGS: Clear. She has pleural effusion on the left. HEART: Regular rhythm. ABDOMEN: Soft. EXTREMITIES: Without clubbing, cyanosis, or edema. NEUROLOGIC: Grossly nonfocal. She is still on significant positive pressure support. She also still has an acid base disorder. PH is 7.41, pCO2 of 27, pO2 of 96. She is on 60%, 8 of PEEP. I turned her PEEP up to 10 this morning. She is still hyperchloremic with an anion gap of 11. Probably needs to be switched to just D5W for now, as this acid base disorder will increase her work of breathing if we are going to extubate her any time soon. I had a long meeting with the family caitlyn ce today, totaling about an hour. They say she did not even want to come to the hospital and would never want to go through any of this . I also talked the case over with the residents. I think it is appropriate to aggressively try to diu rese her and then consider extubation tomorrow no matter what, given that she never wanted any of thi s in the first place according to the 2 daughters. What I see in the future for her is a nursing [facility] e residence and daughter said she would never want that. She may do better than we expect, but the p sayda is to extubate her in the morning, keep her comfortable, and hope for the best. Family is suppor tive of this decision. Critical care time, 30 minutes.
[2018-03-04] MEDS: Docusate 100 MG CAP PO SCH (21:01)
[2018-03-04] MEDS: cefTRIAXone\\ROCEPHIN 2 GM in Sodium Chloride 0.9% 100 ML IVPB SCH (21:02)
[2018-03-05] MEDS: fentaNYL Citrate/PF 2,000 MCG in Sodium Chloride 0.9% 60 ML IV SCH (04:12)
[2018-03-05 04:37] LABS: Anion Gap 15 mmol/L (10-20); BUN (Urea Nitrogen) 41 mg/dL (9.8-20.1); Calc. Creatinine Clearance 57 mL/min (70-130); Calcium 8.7 mg/dL (7.8-10.44); Carbon Dioxide 22 mmol/L (23-31); Chloride 105 mmol/L (98-107); Estimated GFR-MDRD 35; Glucose 140 mg/dL (83-110); Potassium 3.2 mmol/L (3.5-5.1); Sodium 139 mmol/L (136-145)
[2018-03-05] MEDS: Sodium Chloride 0.45% 1,000 ML IV SCH (06:12)
[2018-03-05] MEDS ORDERED: Furosemide 40 MG/4 ML VIAL SLOW IVP SCH (06:30)
--- NOTE | 2018-03-05 06:31 | PDOC.FM ---
- Subjective Subjective: 82 yo female seen at bedside this AM. Patient's sedation has been weaning off overnight in preparation of extubation this AM. Patient follows commands. Patient shakes head "No" to question of any pain. Patient was aggressively diuresed overnight with good response. Per nursing staff, no acute changes overnight. - Objective Vital Signs & Weight: Vital Signs (12 hours) Temp Pulse Resp Pulse Ox 03/05/18 06:00 14 03/05/18 04:00 16 03/05/18 02:12 81 03/05/18 02:00 14 03/04/18 23:55 100.3 F H 03/04/18 23:53 14 03/04/18 22:16 69 03/04/18 22:00 14 03/04/18 20:00 99.9 F H 14 97 03/04/18 19:00 75 Weight Admit Weight 112.491 kg Weight 118.2 kg Most Recent Monitor Data Heart Rate from ECG 63 NIBP 140/62 NIBP BP-Mean 115 Respiration from ECG 14 SpO2 97 I&O: 03/03/18 03/04/18 03/05/18 06:59 06:59 06:59 Intake Total 3210.7 2729.9 3025.3 Output Total 2100 2100 7545 Balance 1110.7 629.9 -4519.7 Result Diagrams: 03/04/18 10:14 03/05/18 04:18 <Yazan Almanzar - Last Filed: 03/05/18 06:29> - Objective Vital Signs & Weight: Weight Admit Weight 112.491 kg Weight 109.815 kg Most Recent Monitor Data Heart Rate from ECG 93 NIBP 146/84 NIBP BP-Mean 103 Respiration from ECG 17 SpO2 90 Result Diagrams: 03/09/18 04:47 03/10/18 04:50 <Shakila Webb - Last Filed: 03/12/18 12:20> Phys Exam - Physical Examination Constitutional: NAD HEENT: moist MMs ET in place Right IJ in place Respiratory: no wheezing, clear to auscultation bilateral Cardiovascular: RRR, no significant murmur Gastrointestinal: soft, non-tender, no distention, positive bowel sounds umbilical hernia Musculoskeletal: pulses present posterior edema Neurological: moves all 4 limbs Skin: no rash <Yazan Almanzar - Last Filed: 03/05/18 06:29> Dx/Plan (1) Metabolic encephalopathy Code(s): G93.41 - METABOLIC ENCEPHALOPATHY Status: Acute (2) Calculous pyelonephritis Code(s): N20.0 - CALCULUS OF KIDNEY Status: Acute (3) Sepsis Code(s): A41.9 - SEPSIS, UNSPECIFIED ORGANISM Status: Acute (4) Postoperative respiratory failure Code(s): J95.821 - ACUTE POSTPROCEDURAL RESPIRATORY FAILURE Status: Acute (5) CASH (acute kidney injury) Code(s): N17.9 - ACUTE KIDNEY FAILURE, UNSPECIFIED Status: Acute (6) Thrombocytopenia Code(s): D69.6 - THROMBOCYTOPENIA, UNSPECIFIED Status: Acute - Plan Plan: 1. Metabolic encephalopathy - Secondary to sepsis - Currently intubated and sedated - Continue supportive care with plan for extubation today as tolerated - Per Dr. Avendaño extubation this AM and per patient family she would not want intubation again. 2. Calculous pyelonephritis, resolved - s/p cycstoscopy with stent placement - Rocephin - appreciate urology recs - Blood cultures from [facility] grew Klebsiella species sensitive to Rocephin - Urine cultures from this facility grew Klebsiella species sensitive to Rocephin - Fever to 100.5 overnight, likely due to pyelonephritis 3. Sepsis - continuous monitoring in CCU - Resolved - likely 2/2 pyelonephritis - IV tyelenol PRN - IVF changed to D5W to resolve electrolytes - Right IJ central line placed 03/[address] Avendaño 4. Respiratory failure - currently on ventilator - appreciate Dr. Avendaño recs - Per Pulmonology will extubate this AM 5. CASH - Elevated above baseline - Nephrology consulted, appreciate Dr. Allan's recommendations - Likely secondary to hypoperfusion - IVF changed to D5W @ 100 - Improved this AM - Continue to monitor and avoid nephrotoxic agents - Will continue diuresis as tolerated 6. Thrombocytopenia - Recheck H&H with Platelets pending - Likely secondary to sepsis - Monitor for signs/symptoms of bleeding Disposition: Guarded, will continue current plan of care and look to wean off ventilator today. <Yazan Almanzar - Last Filed: 03/05/18 06:29> Attending Addendum - Attending Addendum Date/Time: 03/05/18 1213 I personally evaluated the patient and discussed the management with Dr. Almanzar I agree with the History, Examination, Assessment and Plan documented above with any addition or exceptions noted below. 82 yo female transferred from outside facility for severe sepsis related to obstructive nephrolithiasis complicating pyelonephritis with bacteremia. HD#5 POD#5 Remains intubated in ICU. Fevers overnight. VS reviewed. Labs reviewed. Images reviewed. Sepsis: Resolved. Off pressor support. Blood and urine positive for Klebsiella species. Sensitivities reviewed. Will continue Rocephin. Consider procal. Pyelonephritis complicated by obstructive nephrolithiasis now s/p removal and stent placement. Urology following. Klebsiella bacteremia: Repeat blood cultures needed. Consider 10 to 14 day treatment course. Consider trending procal. Hypoxic respiratory failure: Considering extubation today. Pulm following and managing vent Hyperchloremia: No NS on fluids. Prolonged steriod use: Monitor for adrenal insufficiency. Has been receiving IV steroids. BP stable. CASH: Improving. Related to pre and post renal issues with possible intrinsic damage due to continue low bicarb. Nephro following. Thrombocytopenia: Holding anticoag Fever: Temp overnight/hosiery looper. Consider line infection. Monitor. No need to change antibiotics at this time. Would consider start peripheral access. Will continue to monitor closely. research specialist recs. Tegan <Shakila Webb - Last Filed: 03/12/18 12:20>
[2018-03-05 06:45] LABS: Actual Bicarbonate (HCO3a) 22.5 mEq/L (22-28); Base Excess (BEa) -0.8 mEq/L (-2.0 to +3.0); CO2 Tension 33.1 mmHg (35.0-45.0); Carboxyhemoglobin (COHb) 1.1 gm% (0.0-3.0); Hemoglobin (Hb) 13.7 g/dL (12.0-16.0); Potassium - ABG Lab 3.21 mmol/L (3.70-5.30); pH, Arterial 7.45 (7.35-7.45)
[2018-03-05 06:47] LABS: ALV-art Gradient 269.425 (0-20); Puncture Site RRA
[2018-03-05 07:42] LABS: Platelet Count 64 thou/uL (130-400)
[2018-03-05] MEDS ORDERED: Furosemide 40 MG/4 ML VIAL IVP SCH (07:54)
[2018-03-05] MEDS: Pantoprazole 40 MG VIAL IVP SCH (08:18)
[2018-03-05] MEDS: Dextrose 5% in Water 1,000 ML IV SCH ×3 (09:00→22:31)
--- NOTE | 2018-03-05 09:02 | PRG ---
DATE OF SERVICE: 03/05/2018 SUBJECTIVE: The patient did well over the last 24 hours, but she is still not able to be extubated. She has significant diuresis more than 7 liters in the past 24 hours. She also had a significant ou tput of gastric contents of 230, otherwise no significant changes. PHYSICAL EXAMINATION: VITAL SIGNS: T-max 100.5. Vital signs stable. Systolic blood pressure in the 130s and 140s off any sort of pressors, satting 96-97% on her intubation support. GENERAL: She is alert with her eyes opened and follows commands to include squeezing with both hands and denies any pain. This is also yellow urine coming from the Rico catheter. LABORATORY DATA: Reveal H&H has come up from her significant diuresis. Creatinine continues to impr ove at 1.42. ASSESSMENT: We have an 82-year-old female status post urosepsis from an obstructing stone who alread y had a stent placed on 02/28/2018 originally. She continues to improve, hopefully she can be extuba ximena today. She is on ceftriaxone for her urine infection and should continue this for 4 weeks, defin itive stone therapy will be discussed after she is discharged and follow up as an outpatient. So for now, just keeping her indwelling stent and ensuring daily improvement.
[2018-03-05] MEDS: Polyethylene Glycol 3350 17 GM Packet PER TUBE SCH (09:15)
[2018-03-05] MEDS: Docusate 100 MG CAP PO SCH ×2 (09:37→21:24)
[2018-03-05] MEDS ORDERED: ALPRAZolam 0.5 MG TAB PO PRN (14:06)
[2018-03-05] MEDS ORDERED: Potassium Chloride 40 MEQ in Premix Bag 1 BAG IVPB SCH (14:15)
[2018-03-05] MEDS ORDERED: Hydrocortisone 10 mg Tablet PO PRN ×2 (14:30→14:31)
[2018-03-05] MEDS ORDERED: Rizatriptan Benzoate 10 MG MLT TAB PO PRN (14:32)
[2018-03-05] MEDS: Acetaminophen 325 MG TAB PO PRN (17:30)
--- NOTE | 2018-03-05 18:04 | PRG ---
DATE OF SERVICE: 03/05/2018 SUBJECTIVE: Patient was seen and examined at bedside and overnight events noted. Patient denies any shortness of breath or chest pain or palpitation. No history of nausea or vomitin g or diarrhea or fever or chills or cramps. OBJECTIVE: GENERAL: This is a well-built female, in no apparent distress. VITAL SIGNS: Temperature 99.0, pulse 93, respiratory rate 18, blood pressure 146/84. HEENT: Atraumatic, normocephalic. Oral mucosa is moist. NECK: Supple. CARDIOVASCULAR: S1 and S2 heard. Rate and rhythm regular. RESPIRATORY: Clear to auscultation. GASTROINTESTINAL: Abdomen is soft. MUSCULOSKELETAL: No tenderness. No edema. DERMATOLOGIC: No skin rash. NEUROLOGIC: Alert and awake and oriented x3. No focal neurologic deficits. Moving all the extremit ies. PSYCHIATRIC: Mood and affect normal. LABORATORY DATA: Potassium is 3.2, BUN 41, creatinine is 1.4. ASSESSMENT AND PLAN: 1. Acute kidney injury on chronic kidney disease stage 2, renal function with improvement. Continue hydration. 2. Septic shock. 3. Hypokalemia, replace. 4. Hypertension. 5. Metabolic acidosis. Overall, renal function is getting better. Avoid nephrotoxins.
--- NOTE | 2018-03-05 19:55 | PRG ---
DATE OF SERVICE: 03/05/2018 SUBJECTIVE: Ms. Hansen was in no distress this morning. She was awake when her sedation was decreased. She passed a spontaneous breathing trial. OBJECTIVE: LUNGS: Clear. HEART: Regular rhythm. ABDOMEN: Soft. EXTREMITIES: Without asymmetry. Intake and output was negative 4519 this morning. She was given additional Lasix this morning. She had a brisk diuresis after that. Hemoglobin is 13 g this morning. Electrolytes were unremarkable. BUN was 41, same as yesterday. Creatinine was 1.42, better than yesterday in spite of diuresis. IMPRESSION: Urinary tract sepsis secondary to ureterolithiasis. She grew Klebsiella out of her urine, but nothing out of her blood. Her blood cultures were drawn significantly after her urine culture was drawn. She did have a pathogen grow out of her blood at [facility]. I recommended extubation. This was done successfully. The first thing she said without stridor was, "I want some water." I met with the family at length prior to her extubation. She will be transferred out of the Critical Care Unit. Critical care time is 35 minutes. JAYNA
[2018-03-05] MEDS ORDERED: Lidocaine 2% Viscous Solution 20 ML, Aluminum & Magnesium Hydroxide 30 ML, Donnatal Eli... SSW SCH (20:45)
[2018-03-05] MEDS: Ondansetron HCl/PF 4 MG/2 ML Vial IVP PRN (21:35)
[2018-03-05] MEDS: cefTRIAXone\\ROCEPHIN 2 GM in Sodium Chloride 0.9% 100 ML IVPB SCH (22:22)
[2018-03-06] MEDS: hydrALAZINE 20 MG/ML VIAL SLOW IVP PRN (04:20)
[2018-03-06] MEDS: Dextrose 5% in Water 1,000 ML IV SCH ×3 (05:09→18:35)
[2018-03-06] MEDS: Acetaminophen 650 MG Suppository PR PRN (05:15)
[2018-03-06 06:17] LABS: Chloride 100 mmol/L (98-107); Sodium 140 mmol/L (136-145)
[2018-03-06 06:18] LABS: Calcium 8.7 mg/dL (7.8-10.44); Glucose 147 mg/dL (83-110)
[2018-03-06 06:19] LABS: Anion Gap 16 mmol/L (10-20); Carbon Dioxide 27 mmol/L (23-31)
[2018-03-06 06:21] LABS: Calc. Creatinine Clearance 69 mL/min (70-130); Estimated GFR-MDRD 44
[2018-03-06 06:22] LABS: BUN (Urea Nitrogen) 36 mg/dL (9.8-20.1)
[2018-03-06 06:24] LABS: Potassium 2.9 mmol/L (3.5-5.1)
[2018-03-06] MEDS ORDERED: Morphine 2 MG/ML SYRINGE SLOW IVP PRN (06:48)
--- NOTE | 2018-03-06 06:50 | PDOC.FM ---
- Subjective Subjective: 82 yo female seen at bedside this AM. Patient's daughter is present. Patient did not have a good night. Patient states that she had some pain over night, but doesn't want to ask for much pain medication because she doesn't want to get addicted. Patient also states that she sees "awful" sites when she closes her eyes and she hasn't been able to rest. Her daughter states she has also had some spasms in her knee this morning as well. Patient denies problems with SOB, chest pain, vomiting, diarrhea. She does complain of nausea this morning though. - Objective Vital Signs & Weight: Vital Signs (12 hours) Temp Pulse Resp BP BP Pulse Ox 03/06/18 05:09 97.8 F 132/78 03/06/18 04:20 88 173/74 H 03/06/18 03:50 98.3 F 88 18 173/74 H 96 03/05/18 20:00 97.7 F 90 18 136/81 95 Weight Admit Weight 112.491 kg Weight 118.2 kg Most Recent Monitor Data Heart Rate from ECG 93 NIBP 146/84 NIBP BP-Mean 103 Respiration from ECG 17 SpO2 90 I&O: 03/04/18 03/05/18 03/06/18 06:59 06:59 06:59 Intake Total 2729.9 3025.3 2556.5 Output Total 2100 7545 5700 Balance 629.9 -4519.7 -3143.5 Result Diagrams: 03/05/18 07:25 03/06/18 04:17 <Yazan Almanzar - Last Filed: 03/06/18 09:07> - Objective Vital Signs & Weight: Weight Admit Weight 112.491 kg Weight 109.815 kg Most Recent Monitor Data Heart Rate from ECG 93 NIBP 146/84 NIBP BP-Mean 103 Respiration from ECG 17 SpO2 90 Result Diagrams: 03/09/18 04:47 03/10/18 04:50 <Shakila Webb - Last Filed: 03/12/18 12:27> Phys Exam - Physical Examination HEENT: moist MMs Respiratory: no wheezing, clear to auscultation bilateral Cardiovascular: RRR, no significant murmur Gastrointestinal: soft, non-tender, no distention, positive bowel sounds Musculoskeletal: no edema, pulses present Neurological: non-focal, moves all 4 limbs Psychiatric: A&O x 3 Deviation from normal: Hallucinations, but aware not real Skin: no rash <Yazan Almanzar - Last Filed: 03/06/18 09:07> Dx/Plan (1) Metabolic encephalopathy Code(s): G93.41 - METABOLIC ENCEPHALOPATHY Status: Acute (2) Calculous pyelonephritis Code(s): N20.0 - CALCULUS OF KIDNEY Status: Acute (3) Sepsis Code(s): A41.9 - SEPSIS, UNSPECIFIED ORGANISM Status: Acute (4) Postoperative respiratory failure Code(s): J95.821 - ACUTE POSTPROCEDURAL RESPIRATORY FAILURE Status: Acute (5) CASH (acute kidney injury) Code(s): N17.9 - ACUTE KIDNEY FAILURE, UNSPECIFIED Status: Acute (6) Thrombocytopenia Code(s): D69.6 - THROMBOCYTOPENIA, UNSPECIFIED Status: Acute (7) Hypokalemia Code(s): E87.6 - HYPOKALEMIA Status: Acute - Plan Plan: 1. Metabolic encephalopathy - Secondary to sepsis - Improved - Per patient family she would not want intubation again. 2. Calculous pyelonephritis, resolved - s/p cycstoscopy with stent placement - Rocephin, transition to orals when tolerating more PO - appreciate urology recs - Blood cultures from [facility] grew Klebsiella species sensitive to Rocephin - Urine cultures from this facility grew Klebsiella species sensitive to Rocephin 3. Sepsis - Resolved - likely 2/2 pyelonephritis - IVF changed to D5W to resolve electrolytes - Right IJ central line placed 03/[address] Avendaño - Consult palliative care for goals of treatment 4. Respiratory failure - Resolved - Currently on 2L NC, not on home O2 - appreciate Dr. Avendaño recs 5. CASH - Elevated above baseline - Nephrology consulted, appreciate Dr. Allan's recommendations - Likely secondary to hypoperfusion - IVF changed to D5W @ 100 - Improved this AM to Creatinine 1.18 - Continue to monitor and avoid nephrotoxic agents - Will continue diuresis as tolerated 6. Thrombocytopenia - Recheck H&H with Platelets stabilized yesterday - Likely secondary to sepsis - Monitor for signs/symptoms of bleeding - Recheck platelet count as needed 7. Hypokalemia - Likely secondary to Lasix use - Will replenish Disposition: Guarded, will continue current plan of care. Patient and family do not want any invasive medical treatment any longer. Will consult palliative care. <Yazan Almanzar - Last Filed: 03/06/18 09:07> Attending Addendum - Attending Addendum Date/Time: 03/06/18 1221 I personally evaluated the patient and discussed the management with Dr. Almanzar I agree with the History, Examination, Assessment and Plan documented above with any addition or exceptions noted below. 82 yo female transferred from outside facility for severe sepsis related to obstructive nephrolithiasis complicating pyelonephritis with bacteremia. HD#6 POD#6 Extubated. On medical floor. Hallucinations overnight. Afebrile. VS reviewed. Labs reviewed. Images reviewed. Sepsis: Resolved. Off pressor support. Blood and urine positive for Klebsiella species. Continue Rocephin. Pyelonephritis complicated by obstructive nephrolithiasis now s/p removal and stent placement. Urology following. Klebsiella bacteremia: Repeat blood cultures pending. Consider 10 to 14 day treatment course. Hypoxic respiratory failure: Resolved. Extubated. Hyperchloremia: Resolved. Prolonged steriod use: Monitor for adrenal insufficiency. Has been receiving IV steroids. BP stable. CASH: Continues to improve. Related to pre and post renal issues with possible intrinsic damage due to continue low bicarb. Nephro following. Thrombocytopenia: Holding anticoag Delirium likely related to metabolic encephalopathy: Monitor. Family to remain at bedside to help reassure. Will discuss antipsychotic use with [facility] psych to help. Currently on Haldol. Will continue to monitor closely. marketing graphics specialist recs. Discuss care goals with family. Tegan <Shakila Webb - Last Filed: 03/12/18 12:27>
[2018-03-06] MEDS ORDERED: Morphine 10 MG/ML VIAL SLOW IVP PRN (06:57)
[2018-03-06] MEDS: Potassium Chloride 20 MEQ in Premix Bag 1 BAG IVPB SCH ×2 (08:13→09:45)
[2018-03-06] MEDS: Pantoprazole 40 MG VIAL IVP SCH (08:14)
[2018-03-06] MEDS: Escitalopram Oxalate 20 mg Tablet PO SCH (08:14)
[2018-03-06] MEDS: Docusate 100 MG CAP PO SCH ×2 (08:14→20:50)
[2018-03-06] MEDS: Lisinopril 20 MG TAB PO SCH (08:14)
[2018-03-06] MEDS: Polyethylene Glycol 3350 17 GM Packet PER TUBE SCH (08:17)
[2018-03-06] MEDS: Haloperidol Lactate 5 MG/ML VIAL IM PRN ×2 (08:18→13:11)
[2018-03-06] MEDS: Ondansetron HCl/PF 4 MG/2 ML Vial IVP PRN (08:45)
[2018-03-06] MEDS ORDERED: Morphine 4 MG/ML VIAL SLOW IVP PRN (09:34)
[2018-03-06] MEDS ORDERED: Morphine 4 MG/ML VIAL SLOW IVP SCH (09:34)
[2018-03-06] MEDS: Scopolamine 1.5 mg/72 hour Patch TD SCH (10:13)
--- NOTE | 2018-03-06 10:45 | PRG ---
DATE OF SERVICE: 03/06/2018 Lara Hansen was evaluated this morning, she was miserable. She was hallucinating all night. PHYSICAL EXAMINATION: VITAL SIGNS: Blood pressure 145/60, heart rate 92. She is afebrile, respiratory rate was in the lisa ns to low 20s. LUNGS: Lungs were clear. HEART: Regular rhythm. ABDOMEN: Abdomen is soft. She was conversing with her daughter who was being very supportive. LABORATORY: Sodium 140, potassium 2.9, chloride 100, bicarbonate 26, BUN 36, creatinine 1.18. IMPRESSION AND PLAN: Clinical sepsis secondary to ureteral obstruction with pyelonephritis. We will continue with current supportive care. I will add Haldol p.r.n. for her hallucinations. She is com plaining of pain in her abdomen and pain all over, so I ordered morphine as well, 2 mg is unlikely to alleviate her discomfort and if she is not going to clearly bounce back from this her family wants h er as comfortable as possible.
--- NOTE | 2018-03-06 10:58 | PDOC.EVN ---
Event Note - Event Note Event Note: Transition of Care Note 03/06/18 Patient is an 82 yo female that presents following confusion and right flank pain on 02/28/18. Patient was transferred from [facility] to [place] for a procedure to be completed by Urology. Patient was subsequently intubated for the procedure. Patient then remained on the ventilator until 03/05/18. Patient was started on broad spectrum Urosepsis specific antibiotics until culture results returned. Patient had positive urine cultures as well as blood cultures that grew out Klebsiella species sensitive to ceftriaxone. Patient was then transitioned to IV ceftriaxone monotherapy. Patient had thrombocytopenia suspected secondary to severe sepsis. Patient has had home eliquis dose held up until 03/06/18 due to thrombocytopenia. She will have a repeat CBC on 03/07/18 with determination if restarting her Eliquis would be appropriate at that time. Initially, patient presented with CASH secondary to her obstructive stone. Patient had her Creatinine trended and treated with IVF with good recovery of her kidney function. Patient was also showing signs of fluid response with great response to IV lasix. Patient had hypokalemia on 03/06/18 likely secondary to Lasix use and was replenished. She has continuos BMP's for each morning for monitoring. Since extubation patient has been able to maintain her airway and oxygen saturation without problem. However, patient has had increased hallucinations and agitation since extubation. Per Pulmonology, Dr. Avendaño, patient was given Haldol and morphine for symptom relief. Per patient and her family she does not want any invasive medical care at this time. If something should acutely worsen , patient would like to be transitioned to comfort care only. Palliative Care has been consulted and will hopefully be helpful in this process. As always please continue to follow specialty recommendations. Please contact with any questions or concerns.
[2018-03-06] MEDS ORDERED: Hydrocortisone 10 mg Tablet PO PRN (12:00)
[2018-03-06] MEDS: Morphine 4 MG/ML VIAL SLOW IVP PRN ×2 (14:14→20:54)
--- NOTE | 2018-03-06 17:26 | PRG ---
DATE OF SERVICE: 03/06/2018. SUBJECTIVE: The patient was seen and examined. OBJECTIVE: GENERAL: This is an elderly female, in mild distress. VITAL SIGNS: Temperature 98.8, pulse 83, respiratory rate 18, blood pressure 137/75. LABORATORY DATA: Potassium is 2.9, BUN is 36, creatinine is 1.1. ASSESSMENT AND PLAN: 1. Acute kidney injury on chronic kidney disease stage 3. Renal function with improvement. 2. Septic shock. 3. Hypokalemia, replace and monitor. 4. Hypertension, stable. 5. Metabolic acidosis. 6. Replace potassium aggressively and will follow.
--- NOTE | 2018-03-06 17:55 | PRG ---
DATE OF SERVICE: 03/06/2018 SUBJECTIVE: The patient got transferred to the floor after being extubated. She had a very rough night with some hallucinations and disorientation per the daughter, but otherwise has been doing okay. OBJECTIVE: Vitals have been stable. Her T-max has been 99.1, current 98.8, satting 93% on 2 liters nasal cannula. She is sleeping comfortably and I did not want to wake her. She excellent amount of urine overnight and there is yellow urine in the [place]. LABORATORY DATA: Reveal stable H and H. Her creatinine is now within normal limits at 1.18. As previously mentioned, she has Klebsiella pneumoniae in the urine. ASSESSMENT AND PLAN: We have an 82-year-old female, slowly improving from urosepsis, status post urgent stent for obstructing stone who is improving. She should continue to get at least 4 weeks of antibiotics, emphasizing pulmonary toilet now, she is on the floor and we can discuss definitive stone therapy as an outpatient. JAYNA
[2018-03-06] MEDS: cefTRIAXone\\ROCEPHIN 2 GM in Sodium Chloride 0.9% 100 ML IVPB SCH (22:26)
[2018-03-07] MEDS: Morphine 4 MG/ML VIAL SLOW IVP PRN ×2 (05:44→21:04)
[2018-03-07] MEDS: Dextrose 5% in Water 1,000 ML IV SCH ×3 (05:52→21:03)
[2018-03-07 06:13] LABS: Anion Gap 12 mmol/L (10-20); BUN (Urea Nitrogen) 24 mg/dL (9.8-20.1); Calc. Creatinine Clearance 86 mL/min (70-130); Calcium 8.3 mg/dL (7.8-10.44); Carbon Dioxide 29 mmol/L (23-31); Chloride 99 mmol/L (98-107); Estimated GFR-MDRD 57; Glucose 194 mg/dL (83-110); Potassium 3.1 mmol/L (3.5-5.1); Sodium 137 mmol/L (136-145)
--- NOTE | 2018-03-07 06:35 | PDOC.FM ---
- Subjective Subjective: Per daughter, night went well last night. She did not seem to have any hallucinations and slept well. At baseline, she is oriented to person and lives alone. Her daughter, Sam, who is at bedside states that she typically sits in recliner and gets up to use the restroom. She does not use cane or walker but has chronic pain in R knee, likely 2/2 arthritis which is a longstanding issue for her. - Objective MAR Reviewed: Yes Vital Signs & Weight: Vital Signs (12 hours) Temp Pulse Resp BP Pulse Ox 03/07/18 01:47 97.7 F 79 22 H 122/79 94 L 03/06/18 20:26 98.1 F 87 16 164/74 H 95 Weight Admit Weight 112.491 kg Weight 118.2 kg Most Recent Monitor Data Heart Rate from ECG 93 NIBP 146/84 NIBP BP-Mean 103 Respiration from ECG 17 SpO2 90 I&O: 03/05/18 03/06/18 03/07/18 06:59 06:59 06:59 Intake Total 3025.3 2556.5 1300 Output Total 7545 5700 900 Balance -4519.7 -3143.5 400 Result Diagrams: 03/07/18 05:18 03/07/18 05:18 Phys Exam - Physical Examination Constitutional: NAD HEENT: moist MMs Neck: supple Respiratory: no wheezing, clear to auscultation bilateral Cardiovascular: no significant murmur tachycardic Gastrointestinal: soft, non-tender, positive bowel sounds midline abdominal hernia, no TTP Musculoskeletal: no edema, pulses present Neurological: non-focal, moves all 4 limbs Deviation from normal: scattered bruising Dx/Plan (1) CASH (acute kidney injury) Code(s): N17.9 - ACUTE KIDNEY FAILURE, UNSPECIFIED Status: Acute (2) Calculous pyelonephritis Code(s): N20.0 - CALCULUS OF KIDNEY Status: Acute (3) Compromised respiratory status Code(s): R06.89 - OTHER ABNORMALITIES OF BREATHING Status: Acute (4) Metabolic encephalopathy Code(s): G93.41 - METABOLIC ENCEPHALOPATHY Status: Acute (5) Postoperative respiratory failure Code(s): J95.821 - ACUTE POSTPROCEDURAL RESPIRATORY FAILURE Status: Acute (6) Sepsis Code(s): A41.9 - SEPSIS, UNSPECIFIED ORGANISM Status: Acute (7) Thrombocytopenia Code(s): D69.6 - THROMBOCYTOPENIA, UNSPECIFIED Status: Acute - Plan Plan: 82 yo F admitted for sepsis 2/2 pyelonephritis, now s/p intubation/extubation 1. Metabolic encephalopathy, now likely with delirium - Secondary to sepsis - Per patient family she would not want intubation again - Hallucinations, haldol added per Dr. Avendaño 2. Calculous pyelonephritis, resolved - s/p cycstoscopy with stent placement - Rocephin, transition to orals when tolerating more PO - appreciate urology recs - Blood cultures from [facility] grew Klebsiella species sensitive to Rocephin - Urine cultures from this facility grew Klebsiella species sensitive to Rocephin - Recommend 4w of antibiotics and further mgmt outpatient 3. Sepsis - Resolved - likely 2/2 pyelonephritis - IVF changed to D5W to resolve electrolytes - Right IJ central line placed 03/[address] Avendaño - Palliative care on board to assist with ongoing discussion for goals of care 4. Respiratory failure - Resolved - Currently on 2L NC, not on home O2 - appreciate Dr. Avendaño recs 5. CASH - Elevated above baseline - Nephrology consulted, appreciate Dr. Allan's recommendations - Likely secondary to hypoperfusion - IVF changed to D5W @ 100 - Improved this AM to Creatinine 0.94 - Continue to monitor and avoid nephrotoxic agents - Will continue diuresis as tolerated 6. Thrombocytopenia - Recheck H&H with Platelets stabilized yesterday - Likely secondary to sepsis - Monitor for signs/symptoms of bleeding - Recheck platelet count as needed - Eliquis held at this time, discussed with family risks/benefits and all agree on holding at this time 7. Hypokalemia - Likely secondary to Lasix use - Will replenish 8. Deconditioning - PT/OT consult - Incredibly weak and will need rehab if candidate, otherwise SNF - Case management consult 9. H/o PE - Eliquis held as above in #6 Disposition: Guarded, will continue current plan of care. Patient and family do not want any invasive medical treatment any longer. Appreciate palliative care recs
[2018-03-07 06:43] LABS: #Eosinphils 0.2 thou/uL (0.0-0.7); #Lymphocytes 1.1 thou/uL (1.20-3.40); #Monocytes 1.1 thou/uL (0.11-0.59); #Neutrophils 7.3 thou/uL (1.40-6.50); %Basophils 0.1 % (0.0-1.0); %Lymphocytes 11.1 % (21.0-51.0); %Monocytes 11.6 % (0.0-10.0); %Neutrophils 75.3 % (42.0-75.0); Mean Corpuscular HGB CONC 33.2 g/dL (32.0-36.0); Mean Corpuscular Hemoglobin 32.4 pg (27.0-31.0); Mean Corpuscular Volume 97.6 fL (78.0-98.0); Mean Platelet Volume 9.7 fL (7.4-10.4); Platelet Count 115 thou/uL (130-400); RBC Distribution Width 13.5 % (11.5-14.5); Red Blood Cell (RBC) Count 4.01 mill/uL (4.20-5.40); White Blood Cell (WBC) Count 9.8 thou/uL (4.8-10.8)
[2018-03-07] MEDS ORDERED: Potassium Chloride 40 MEQ in Premix Bag 1 BAG IVPB SCH (08:00)
[2018-03-07] MEDS: Pantoprazole 40 MG VIAL IVP SCH (08:53)
[2018-03-07] MEDS: Escitalopram Oxalate 20 mg Tablet PO SCH (08:54)
[2018-03-07] MEDS: Lisinopril 20 MG TAB PO SCH (08:54)
[2018-03-07] MEDS: Polyethylene Glycol 3350 17 GM Packet PER TUBE SCH (08:54)
[2018-03-07] MEDS: Docusate 100 MG CAP PO SCH ×2 (08:54→21:03)
[2018-03-07] MEDS ORDERED: Magnesium Sulfate 3 GM in Sodium Chloride 0.9% 100 ML IVPB SCH (09:30)
--- NOTE | 2018-03-07 10:46 | PDOC.EVN ---
Event Note - Event Note Event Note: S: Feeling well but a little fatigued at the moment. Paged by nursing staff because Ms. Hansen's HR was in the 130s-140s. Denies any chest pain or palpitations. O: HR 130-145, regular BP 150s/90s, RR 26 Awake, alert oriented Regular rhythm, tachycardic CTAB Soft nontender, nondistended Pulses 1+ throughout EKG shows atrial fibrillation vs. atrial flutter, predominately regular R-R interval A/P: Will transfer to telemetry and start on cardizem gtt. Discussed with patient who is agreeable. Will consult cardiology as well. Monitor BP closely while titrating cardizem gtt.
[2018-03-07] MEDS: Diltiazem 125 MG in Sodium Chloride 0.9% 100 ML IVPB SCH (11:58)
--- NOTE | 2018-03-07 12:20 | PRG ---
DATE OF SERVICE: 03/07/2018 SUBJECTIVE: Daughter is not at the bedside, but from a prior note, the patient had a much better night and was more lucid, and I was able to discuss with the patient, who is now alert and oriented. She denies any pain. She denies any shortness of breath. She is overall tired, but otherwise feeling okay. OBJECTIVE: VITAL SIGNS: Her vitals were great up until around 7 or 8 this morning, where her previous heart rate of the 80s-90s increased to 140s to 150s, and her saturations dropped at the same time and they had been at 97% at 4:00 a.m. and then to 92% on 2 liters with stable blood pressure, which is slightly hypertensive at 150s/80. Her urine output is training representative of a completion of the auto diuresis, as she now only had about a liter out in the last 24 hours. GENERAL: She is alert, oriented, appropriate, and answers questions. ABDOMEN: Soft and nondistended. No CVA tenderness. Catheter is draining yellow urine. EXTREMITIES: She has no lower extremity edema. She has no Homans' sign on either calf. LABORATORY VALUES: Look good with her platelets improving to 115. Chemistries also improving with a creatinine now of 0.94. ASSESSMENT: In assessment, we have an 82-year-old female, who is overall clinically much improved, but now concerned with tachycardia and slightly drop in saturations. I communicated this to one of the Family Medicine team members with concerns about ruling out a deep vein thrombosis or pulmonary embolism and otherwise trying to give an explanation for this tachycardia. Given her creatinine's significant improvement, she could now receive some contrast if further studies are needed. JAYNA
--- NOTE | 2018-03-07 13:46 | PRG ---
DATE OF SERVICE: 03/07/2018 SUBJECTIVE: Patient was seen and examined at bedside and overnight events noted. Patient denies any shortness of breath or chest pain or palpitation. No history of nausea or vomiting or diarrhea or fever or chills or cramps. OBJECTIVE: GENERAL: This is an elderly female in no apparent distress. VITAL SIGNS: Temperature , respiratory rate 16, blood pressure 159/80. HEENT: Atraumatic, normocephalic. Oral mucosa is moist. NECK: Supple. CARDIOVASCULAR: S1 and S2 heard. Rate and rhythm regular. RESPIRATORY: Clear to auscultation. GASTROINTESTINAL: Abdomen is soft. MUSCULOSKELETAL: No tenderness. No edema. DERMATOLOGIC: No skin rash. NEUROLOGIC: Alert and awake and oriented x3. No focal neurologic deficits. Moving all the extremit ies. PSYCHIATRIC: Mood and affect normal. LABORATORY DATA: Potassium 3.1, BUN is 24, creatinine is 0.9, magnesium . ASSESSMENT AND PLAN: 1. Acute kidney injury on chronic kidney disease. 2. Renal function is stable. 3. Hypokalemia and hypomagnesemia, replace and monitor. 4. Hypertension, stable. 5. Metabolic acidosis. Labs are stable. I will sign off. Please call back with questions. Replace electrolytes and monito r.
[2018-03-07 16:53] LABS: Bilirubin Negative (Negative); Blood, Urine Moderate (Negative); Clarity CLOUDY (Clear); Glucose, Urine (Dipstick) Negative (Negative); Leukocyte Trace (Negative); Nitrite Negative (Negative); Protein, Urine (Dipstick) 30 mg/dL (Neg-Trace); Specific Gravity, Urine 1.013 (1.002-1.036); Urobilinogen 0.2 mg/dL (0.2-1.0); pH, Urine 5.5 (5.0-9.0)
[2018-03-07 16:55] LABS: Bacteria/HPF None Seen HPF (None Seen); Hyaline Casts/LPF 0-3 HYALINE CAST LPF (0-3 Hyaline); Pathc Cast-AUWi Flag 0.43 (0-2.49); Squamous Epithelial 0-3 HPF (0-3)
[2018-03-07 16:57] LABS: Yeast-AUWi Flag 66.4 (0-25.0)
[2018-03-07 17:07] LABS: Renal Epithelial None Seen HPF (0-3); Transitional Epithelial NONE SEEN HPF (0-3)
[2018-03-07 17:08] LABS: Crystals/HPF RARE CA OXALATE HPF (Negative); Oval Fat Bodies/HPF None Seen HPF (None Seen); Trichomonas/HPF None Seen HPF (None Seen); Yeast-All Forms None Seen HPF (None Seen)
[2018-03-07] MEDS: Haloperidol Lactate 5 MG/ML VIAL IM PRN (19:13)
[2018-03-07] MEDS: Acetaminophen 325 MG TAB PO PRN (21:18)
[2018-03-07] MEDS ORDERED: Dextrose 5% in Water 1,000 ML IV SCH (22:15)
[2018-03-07 22:47] LABS: Actual Bicarbonate (HCO3a) 27.3 mEq/L (22-28); Analyzer IN Cardio OR; Base Excess (BEa) 3.8 mEq/L (-2.0 to +3.0); CO2 Tension 37.3 mmHg (35.0-45.0); Calcium, Ionized 1.03 mmol/L (1.12-1.30); Carboxyhemoglobin (COHb) 0.3 gm% (0.0-3.0); O2 Tension (PaO2) 77.3 mmHg (> 60.0); pH, Arterial 7.48 (7.35-7.45)
[2018-03-07 22:50] LABS: ALV-art Gradient 104.235 (0-20); Puncture Site R BRACHIAL
--- NOTE | 2018-03-07 23:06 | RAD ---
PORTABLE FRONTAL CHEST RADIOGRAPH 03/07/18 at 9:50 p.m. COMPARISON: 02/28/18 HISTORY: Short of breath. FINDINGS: Vascular catheter noted medially on the right, distal tip overlying the expected location of the SVC. There is prominence of the cardiac silhouette and pulmonary vasculature. There is mild hazy density in the right lung base with blunting of the costophrenic angle on the right which may represent small volume right pleural effusion. IMPRESSION: Mild hazy increased density in the right base may signify volume loss or mild infiltrate. Trace right pleural fluid cannot be excluded. No lobar consolidation or alveolar edema. POS: [facility]
[2018-03-07] MEDS ORDERED: Furosemide 20 MG/2 ML VIAL SLOW IVP SCH (23:15)
--- NOTE | 2018-03-07 23:18 | PDOC.EVN ---
Event Note - Event Note Event Note: Residents paged by nursing staff at approximately 2200 to inform us the patient was experiencing increasing NC O2 demand. I ordered an ABG, CXR, and BNP. Review of chart reveal patient is +2300L this hospital stay. CXR concerning for fluid overload with increased vascular markings in the lung bases and a probable right sided effusion. BNP is elevated at approximately 500. ABG unremarkable. Will order TTE for the morning, stop IV D5NS, and give lasix 20 mg IV. continue strict I&O. will monitor closely at this time. Heart rate is currently controlled on Diltiazem 10 mg/hr. Tele shows sinus rhythm with rates in 90s-100s and frequent PVCs. Case discussed with Dr. Latif.
[2018-03-08] MEDS: Melatonin 3 MG TAB PO PRN ×2 (00:06→21:43)
[2018-03-08] MEDS: cefTRIAXone\\ROCEPHIN 2 GM in Sodium Chloride 0.9% 100 ML IVPB SCH (00:06)
[2018-03-08] MEDS: Diltiazem 125 MG in Sodium Chloride 0.9% 100 ML IVPB SCH (01:59)
[2018-03-08] MEDS: Haloperidol Lactate 5 MG/ML VIAL IM PRN ×2 (02:07→22:07)
[2018-03-08 05:35] LABS: Anion Gap 15 mmol/L (10-20); BUN (Urea Nitrogen) 18 mg/dL (9.8-20.1); Calc. Creatinine Clearance 85 mL/min (70-130); Carbon Dioxide 26 mmol/L (23-31); Chloride 98 mmol/L (98-107); Estimated GFR-MDRD 60; Glucose 166 mg/dL (83-110); Magnesium 1.5 mg/dL (1.6-2.6); Sodium 136 mmol/L (136-145)
--- NOTE | 2018-03-08 06:35 | PDOC.FM ---
- Subjective Subjective: Family and nursing report difficult night. She has been very disoriented and delirious. She thinks it is raining in her room and is talking about how she will go by the hospital if she has time. She intermittently responds appropriately to questions and has been trying to get out of the bed numerous times. - Objective Vital Signs & Weight: Vital Signs (12 hours) Temp Pulse Resp BP Pulse Ox 03/08/18 04:31 97.4 F L 94 18 130/60 94 L 03/08/18 03:29 21 H 92 L 03/08/18 02:08 84 24 H 125/58 L 03/08/18 00:01 93 L 03/08/18 00:00 99.5 F 92 20 136/59 L 93 L 03/07/18 22:09 98.4 F 03/07/18 21:42 24 H 93 L 03/07/18 21:03 92 L 03/07/18 20:50 100.6 F H 101 H 24 H 135/58 L 92 L 03/07/18 19:27 93 L 03/07/18 19:26 93 L Weight Admit Weight 112.491 kg Weight 112.037 kg Most Recent Monitor Data Heart Rate from ECG 93 NIBP 146/84 NIBP BP-Mean 103 Respiration from ECG 17 SpO2 90 I&O: 03/06/18 03/07/18 03/08/18 06:59 06:59 06:59 Intake Total 2556.5 1300 767 Output Total 5700 900 1250 Balance -3143.5 400 -483 Result Diagrams: 03/07/18 05:18 03/08/18 04:32 EKG Reviewed by me: Yes Phys Exam - Physical Examination Constitutional: NAD HEENT: sclera anicteric Neck: supple Respiratory: no wheezing, clear to auscultation bilateral Cardiovascular: RRR, no significant murmur heart sounds distant Gastrointestinal: soft, non-tender, no distention, positive bowel sounds Musculoskeletal: no edema, pulses present Neurological: non-focal, moves all 4 limbs Deviation from normal: not oriented, pleasant Skin: normal turgor Dx/Plan (1) CASH (acute kidney injury) Code(s): N17.9 - ACUTE KIDNEY FAILURE, UNSPECIFIED Status: Acute (2) Calculous pyelonephritis Code(s): N20.0 - CALCULUS OF KIDNEY Status: Acute (3) Compromised respiratory status Code(s): R06.89 - OTHER ABNORMALITIES OF BREATHING Status: Acute (4) Metabolic encephalopathy Code(s): G93.41 - METABOLIC ENCEPHALOPATHY Status: Acute (5) Postoperative respiratory failure Code(s): J95.821 - ACUTE POSTPROCEDURAL RESPIRATORY FAILURE Status: Acute (6) Sepsis Code(s): A41.9 - SEPSIS, UNSPECIFIED ORGANISM Status: Acute (7) Thrombocytopenia Code(s): D69.6 - THROMBOCYTOPENIA, UNSPECIFIED Status: Acute - Plan Plan: 82 yo F admitted for sepsis 2/2 pyelonephritis, now s/p intubation/extubation 1. Metabolic encephalopathy, now with intermittent delirium - Secondary to sepsis - Per patient family she would not want intubation again - Hallucinations overnight a couple of nights ago, haldol added per Dr. Avendaño - Discussed geodon with family and will start today 2. A fib/flutter with RVR - Rate controlled on dilt gtt, now at 5, BP WNL - Cards notified, appreciate Dr. Preciado's recommendations - Transition to PO/wean off gtt if remains stable 3. Increased O2 requirement - Given IV lasix overnight - Fluids D/C'd, CXR showed increased vascular markings - Echo ordered - Monitor I/Os 4. Calculous pyelonephritis, resolved - s/p cycstoscopy with stent placement - Rocephin, transition to orals when tolerating more PO - appreciate urology recs - Blood cultures from [facility] grew Klebsiella species sensitive to Rocephin - Urine cultures from this facility grew Klebsiella species sensitive to Rocephin - Recommend 4w of antibiotics and further mgmt outpatient 5. Sepsis with respiratory failure, CASH, resolved - Resolved - likely 2/2 pyelonephritis - IVF changed to D5W to resolve electrolytes - Right IJ central line placed 03/[address] Avendaño - Palliative care on board to assist with ongoing discussion for goals of care - Pulm and Nephrology on board, following 6. Thrombocytopenia - Recheck H&H with Platelets stabilized yesterday - Likely secondary to sepsis - Monitor for signs/symptoms of bleeding - Recheck platelet count as needed - Eliquis held at this time, discussed with family risks/benefits and all agree on holding at this time 7. Hypokalemia, hypomagnesemia - Likely secondary to Lasix use - Will replenish 8. Deconditioning - PT/OT consult - Incredibly weak and will need rehab if candidate, otherwise SNF - Case management consult 9. H/o PE - Melissais held as above in #6 Disposition: Guarded, will continue current plan of care. Patient and family do not want any invasive medical treatment any longer. Appreciate palliative care recs
[2018-03-08] MEDS: Polyethylene Glycol 3350 17 GM Packet PER TUBE SCH (09:06)
[2018-03-08] MEDS: Potassium Chloride 20 MEQ TAB PO SCH ×2 (09:07→16:19)
[2018-03-08] MEDS: Escitalopram Oxalate 20 mg Tablet PO SCH (09:07)
[2018-03-08] MEDS: Magnesium Oxide 400 MG TAB PO SCH ×2 (09:07→21:43)
[2018-03-08] MEDS: Lisinopril 20 MG TAB PO SCH (09:08)
[2018-03-08] MEDS: Docusate 100 MG CAP PO SCH ×2 (09:08→21:43)
[2018-03-08] MEDS: Pantoprazole 40 MG VIAL IVP SCH (09:08)
[2018-03-08] MEDS ORDERED: Ziprasidone 20 MG CAP PO SCH (10:45)
[2018-03-08] MEDS ORDERED: Furosemide 20 MG/2 ML VIAL SLOW IVP SCH ×2 (11:15→15:45)
--- NOTE | 2018-03-08 12:12 | PRG ---
DATE OF SERVICE: 03/08/2018 SUBJECTIVE: This patient has been moved back to the telemetry unit after experiencing respiratory di stress upon the medical floor last night. She was given diuretics and says she is breathing better t his morning. She really cannot give me much in the way of accurate history as she seems either demen ximena or encephalopathic. PHYSICAL EXAMINATION: VITAL SIGNS: Temperature 98.4, pulse 91, respirations 23, O2 sat 96% on 3 liters, blood pressure 167 /67. HEENT: Unremarkable. NECK: No JVD. LUNGS: She has crackles in both bases. CARDIAC: S1 and S2 regular. ABDOMEN: Soft. EXTREMITIES: Trace edema. IMAGING: Her chest x-ray from yesterday demonstrates slight cardiomegaly, bilateral small effusions. LABORATORY DATA: White blood cell count 9.8, hematocrit 39.2, platelet count 115. Sodium 136, potas sium 3, chloride 98, CO2 of 26, BUN 18, creatinine 0.9, glucose 166. BNP 593. ASSESSMENT: 1. Pulmonary edema/congestive heart failure. 2. Sepsis secondary ureteral obstruction. PLAN: Continue diuresis and low flow oxygen. She is also continuing antibiotics for the ureteral st one and associated sepsis.
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
[2018-03-08] MEDS ORDERED: methylPREDNISolone Sod Succ/PF 125 MG/2 ML VIAL IVP SCH ×2 (15:45→16:15)
--- NOTE | 2018-03-08 15:50 | PDOC.EVN ---
Event Note - Event Note Event Note: Paged by nursing staff that patient is having increased confusion and wheezing. Upon exam, she is oriented to person and time. She is making some odd comments such as she recently. Her family is at bedside. The room is dark and shades pulled down. Encouraged to keep shades up to orient to day and night. She is tachypnic and has BLL wheezing with fair air movement. Appears to still be in normal sinus rhythm by exam. She has had good urine output since her 20 mg IV lasix around 1130. Will plan to give repeat dose lasix, repeat CXR, IV steroids, and schedule duonebs q 4 hrs. Plan discussed with RT, nurse, and Dr. Latif. If no improvement with interventions, will plan ABG.
--- NOTE | 2018-03-08 16:26 | RAD ---
PORTABLE UPRIGHT FRONTAL CHEST RADIOGRAPH: 03/08/2018 HISTORY: Shortness of breath and wheezing. COMPARISON: 03/07/2018 FINDINGS: Aeration in the lung bases is improved. There is persistent mild blunting of the costophrenic angles , which may signify small volume bilateral pleural effusions. Stable right vascular catheter. No pn eumothorax. Mild pulmonary vascular congestion, improved. IMPRESSION: Improved pulmonary vascular congestion and improved bibasilar aeration with mild residual blunting of the costophrenic angles. POS: [facility]
[2018-03-08] MEDS: Acetaminophen 325 MG TAB PO PRN ×2 (17:53→22:07)
[2018-03-08] MEDS ORDERED: Clopidogrel Bisulfate 75 MG TAB ONE (21:48)
[2018-03-08] MEDS: Cefepime 2 GM in Sodium Chloride 0.9% 100 ML IVPB SCH (21:50)
[2018-03-08] MEDS ORDERED: Melatonin 3 MG TAB PO SCH (22:00)
[2018-03-08] MEDS: Vancomycin HCl 1.25 GM in Sodium Chloride 0.9% 250 ML 250 ML IVPB SCH (22:35)
[2018-03-09] MEDS ORDERED: diphenhydrAMINE 50 MG/ML VIAL IVP SCH (00:45)
[2018-03-09] MEDS ORDERED: Haloperidol Lactate 5 MG/ML VIAL SLOW IVP SCH ×2 (00:45→15:32)
--- NOTE | 2018-03-09 00:45 | PDOC.EVN ---
Event Note - Event Note Event Note: Paged by nursing informing that patient was still agitated and was wheezing after neb treatment. I went and evaluated patient. Patient was confused but alert. Lungs were clear bilaterally. Plan to continue scheduled nebs. give Benadryl 12.5 mg IVP x1 dose. Will reassess later this evening. Discussed with Dr. Aponte.
[2018-03-09] MEDS: Haloperidol Lactate 5 MG/ML VIAL IM PRN (02:05)
[2018-03-09] MEDS: Diltiazem 125 MG in Sodium Chloride 0.9% 100 ML IVPB SCH ×2 (03:25→23:28)
[2018-03-09 05:08] LABS: Anion Gap 17 mmol/L (10-20); BUN (Urea Nitrogen) 22 mg/dL (9.8-20.1); Calc. Creatinine Clearance 73 mL/min (70-130); Calcium 8.4 mg/dL (7.8-10.44); Carbon Dioxide 26 mmol/L (23-31); Chloride 98 mmol/L (98-107); Estimated GFR-MDRD 51; Glucose 339 mg/dL (83-110); Magnesium 1.7 mg/dL (1.6-2.6); Potassium 3.2 mmol/L (3.5-5.1); Sodium 138 mmol/L (136-145)
[2018-03-09] MEDS ORDERED: Albuterol Sulfate 2.5 mg/3 ml Neb NEB PRN (05:12)
[2018-03-09] MEDS: Cefepime 2 GM in Sodium Chloride 0.9% 100 ML IVPB SCH ×2 (06:13→15:27)
[2018-03-09] MEDS ORDERED: Ziprasidone 20 MG CAP PO SCH (08:00)
--- NOTE | 2018-03-09 08:02 | RAD ---
PORTABLE SUPINE CHEST: History: Assess IJ catheter placement. Comparison: 03-08-18 FINDINGS/IMPRESSION: Right central line via the internal jugular is unchanged in position with the tip overlying the upper SVC. There is cardiomegaly and vascular congestion with evidence of small effusions. Some interstitial pro minence may represent mild edema. POS: [facility]
[2018-03-09] MEDS ORDERED: Dextrose 5% in Water 1,000 ML IV PRN (08:33)
[2018-03-09] MEDS ORDERED: HumaLOG 300 UNITS/3 ML VIAL SC PRN (08:33)
[2018-03-09] MEDS ORDERED: Dextrose 50% Abboject 50 ML SYRINGE SLOW IVP PRN (08:33)
[2018-03-09 08:45] LABS: #Lymphocytes 0.5 thou/uL (1.20-3.40); #Monocytes 0.3 thou/uL (0.11-0.59); #Neutrophils 13.8 thou/uL (1.40-6.50); %Eosinophils 0.1 % (0.0-10.0); %Lymphocytes 3.6 % (21.0-51.0); %Monocytes 1.9 % (0.0-10.0); %Neutrophils 94.4 % (42.0-75.0); Hemoglobin 12.1 g/dL (12.0-16.0); Mean Corpuscular Hemoglobin 32.5 pg (27.0-31.0); Mean Corpuscular Volume 98.5 fL (78.0-98.0); Mean Platelet Volume 9.2 fL (7.4-10.4); Platelet Count 154 thou/uL (130-400); RBC Distribution Width 13.6 % (11.5-14.5); Red Blood Cell (RBC) Count 3.72 mill/uL (4.20-5.40); White Blood Cell (WBC) Count 14.6 thou/uL (4.8-10.8)
[2018-03-09] MEDS: Vancomycin HCl 1.25 GM in Sodium Chloride 0.9% 250 ML 250 ML IVPB SCH (09:12)
[2018-03-09] MEDS: Lisinopril 20 MG TAB PO SCH (09:13)
[2018-03-09] MEDS: Docusate 100 MG CAP PO SCH ×2 (09:14→20:34)
[2018-03-09] MEDS: Escitalopram Oxalate 20 mg Tablet PO SCH (09:14)
[2018-03-09] MEDS: Scopolamine 1.5 mg/72 hour Patch TD SCH (09:15)
[2018-03-09] MEDS: Pantoprazole 40 MG VIAL IVP SCH (09:16)
[2018-03-09] MEDS: Polyethylene Glycol 3350 17 GM Packet PER TUBE SCH (09:41)
[2018-03-09] MEDS ORDERED: Haloperidol Lactate 5 MG/ML VIAL SLOW IVP PRN ×2 (10:40→15:38)
--- NOTE | 2018-03-09 10:44 | PDOC.EVN ---
Event Note - Event Note Event Note: stopped cortef stopped IM haldol PO haldol 5mg qhs, IV 1 mg PRN for agitation started home elideeptiis
--- NOTE | 2018-03-09 10:47 | PDOC.FM ---
Addendum entered and electronically signed by Des Lala MD 03/09/18 11:21: still on Dilt gtt, Cardiology to stop by today appreciate recs Original Note: - Subjective Subjective: This morning patient is pleasently confused. Has not slept in 2-3 days per nursing staff. She is A&Ox1. Nursing staff reports that there have been times when she was violent. She denies pain, shortness of breath, N/V/D. - Objective Vital Signs & Weight: Vital Signs (12 hours) Temp Pulse Resp BP BP Pulse Ox 03/09/18 09:13 158/62 H 03/09/18 07:30 96 03/09/18 07:29 106 H 24 H 03/09/18 03:38 92 L 03/09/18 03:21 98.5 F 96 24 H 150/69 H 95 03/09/18 00:10 28 H 96 03/08/18 23:46 92 L 03/08/18 23:34 97.7 F 92 24 H 120/58 L 98 Weight Admit Weight 112.491 kg Weight 111.175 kg Most Recent Monitor Data Heart Rate from ECG 93 NIBP 146/84 NIBP BP-Mean 103 Respiration from ECG 17 SpO2 90 I&O: 03/08/18 03/09/18 03/10/18 06:59 06:59 06:59 Intake Total 767 1580.5 Output Total 1250 2200 Balance -483 -619.5 Result Diagrams: 03/09/18 04:47 03/09/18 04:47 <Des Lala - Last Filed: 03/09/18 10:57> - Objective Vital Signs & Weight: Vital Signs (12 hours) Temp Pulse Resp BP BP Pulse Ox 03/09/18 09:13 158/62 H 03/09/18 08:00 97.8 F 106 H 30 H 173/73 H 95 03/09/18 07:30 96 03/09/18 07:29 106 H 24 H 03/09/18 03:38 92 L 03/09/18 03:21 98.5 F 96 24 H 150/69 H 95 Weight Admit Weight 112.491 kg Weight 111.175 kg Most Recent Monitor Data Heart Rate from ECG 93 NIBP 146/84 NIBP BP-Mean 103 Respiration from ECG 17 SpO2 90 I&O: 03/08/18 03/09/18 03/10/18 06:59 06:59 06:59 Intake Total 767 1580.5 Output Total 1250 2200 Balance -483 -619.5 Result Diagrams: 03/09/18 04:47 03/09/18 04:47 <FadiMatthew Kvng - Last Filed: 03/09/18 14:12> Phys Exam - Physical Examination Constitutional: NAD HEENT: PERRLA, moist MMs Neck: no nodes, full ROM Respiratory: no wheezing, clear to auscultation bilateral Cardiovascular: RRR, no significant murmur Gastrointestinal: soft, non-tender, no distention, positive bowel sounds Musculoskeletal: no edema, pulses present Neurological: non-focal, moves all 4 limbs Skin: cap refill <2 seconds <Des Lala - Last Filed: 03/09/18 10:57> Dx/Plan (1) CASH (acute kidney injury) Code(s): N17.9 - ACUTE KIDNEY FAILURE, UNSPECIFIED Status: Acute (2) Calculous pyelonephritis Code(s): N20.0 - CALCULUS OF KIDNEY Status: Acute (3) Compromised respiratory status Code(s): R06.89 - OTHER ABNORMALITIES OF BREATHING Status: Acute (4) Elevated temperature Code(s): R50.9 - FEVER, UNSPECIFIED Status: Acute (5) Hypokalemia Code(s): E87.6 - HYPOKALEMIA Status: Acute (6) Hypotension Status: Acute (7) Metabolic encephalopathy Code(s): G93.41 - METABOLIC ENCEPHALOPATHY Status: Acute (8) Postoperative respiratory failure Code(s): J95.821 - ACUTE POSTPROCEDURAL RESPIRATORY FAILURE Status: Acute (9) Sepsis Code(s): A41.9 - SEPSIS, UNSPECIFIED ORGANISM Status: Acute (10) Thrombocytopenia Code(s): D69.6 - THROMBOCYTOPENIA, UNSPECIFIED Status: Acute - Plan Plan: 82 yo F admitted for sepsis 2/2 pyelonephritis, now s/p intubation/extubation # Fever, increased O2 requirements - 101 overnight, started Vanc/Cefepime last night to cover for HCAP - Echo shows EF 55-60% - Monitor I/Os # Urinary Retention - failed voiding trial x1 - plan for young if fails again # Metabolic encephalopathy, now with intermittent delirium - likely attributable to ing - Per patient family she would not want intubation again - Hallucinations overnight a couple of nights ago - changed haldol regimen to 5mg PO nightly, 1mg IV q4prn for agitation - Cont Emeka # A fib/flutter with RVR - Off dilt gtt, Dilt scheduled - Cards notified, appreciate Dr. Preciado's recommendations # Calculous pyelonephritis, resolved - s/p cycstoscopy with stent placement - Rocephin, transition to orals when tolerating more PO - appreciate urology recs - Blood cultures from [facility] grew Klebsiella species sensitive to Rocephin - Urine cultures from this facility grew Klebsiella species sensitive to Rocephin - Recommend 4w of antibiotics and further mgmt outpatient # Sepsis with respiratory failure, CASH, resolved - Resolved - likely 2/2 pyelonephritis - IVF changed to D5W to resolve electrolytes - Right IJ central line placed 03/[address] Avendaño - Palliative care on board to assist with ongoing discussion for goals of care - Pulm and Nephrology on board, following # Thrombocytopenia- resolved # Hypokalemia, hypomagnesemia - Likely secondary to Lasix use - Will replenish # Deconditioning - PT/OT consult - Incredibly weak and will need rehab if candidate, otherwise SNF - Case management consult # H/o PE - thrombocytopenia recently resolved - restarted eliquis 03/09 Disposition: Guarded, will continue current plan of care. Patient and family do not want any invasive medical treatment any longer. Appreciate palliative care recs <Des Lala - Last Filed: 03/09/18 10:57> Attending Addendum - Attending Addendum Date/Time: 03/09/18 9924 I personally evaluated the patient and discussed the management with Dr. Lala. I agree with the History, Examination, Assessment and Plan documented above with any addition or exceptions noted below. Patient here for klebsiella sepsis from calculous cystitis resulting in encephalopathy that is improved but now complicated by sundowning and delirium. Per family, we will be doing no further invasive treatments. Her respiratory rate fluctuates, but she is oxygenating well and no evidence of worsening pulm disease. we have discontinued Geodon in favor of Haldol to help with her agitation at night. Abx increased overnight due to fever and concern for HAP. Awaiting further Urology recs for her ureteral stent, and cardiology recs regarding her pAfib. She is currently on Eliquis. Will discuss case with family and consider hospice care if they do not desire to continue aggressive treatment. <Matthew Aponte - Last Filed: 03/09/18 14:12>
[2018-03-09] MEDS ORDERED: Haloperidol 5 MG TAB PO SCH ×2 (11:00→21:00)
[2018-03-09 14:03] VITALS: BMI 39.5
--- NOTE | 2018-03-09 14:59 | ADD-PRG ---
ADDENDUM Please see the note from Dr. Voss for which I agree and the eventual note as well for which I agree . SUBJECTIVE: The patient this morning went into an atrial fibrillation/flutter type situation. Pulse rate in the 130s, although her vital signs were still okay with a blood pressure in the 150s over 80 s and 90s and she was satting fine and actually she felt okay when this is happening, but because of atrial fibrillation and flutter with rapid ventricular response, she was sent down the tele for Diltiazem drip. PHYSICAL EXAMINATION: HEENT: Within normal limits. CHEST: Clear. CARDIOVASCULAR: Irregularly irregular and fast. Pulse rate in the 120s-130s. ABDOMEN: Benign. ASSESSMENT AND PLAN: Atrial fibrillation with rapid ventricular response. We will make sure her aury ctrolytes are okay this morning and was sent out on tele for Diltiazem drip. Other issues include re cent urinary tract infection, which actually is significantly improved. We will continue the same an tibiotics for that.
--- NOTE | 2018-03-09 15:03 | ADD-PRG ---
DATE OF SERVICE: 03/08/[address] Voss's note for which I agree. SUBJECTIVE: The patient was seen and evaluated, examined and discussed with the residents by bedside . The patient converted out of atrial fibrillation flutter to normal sinus rhythm, although has had edith e episodes of sinus tachycardia and has also had some PVCs. She was also volume overloaded and respo nded fairly well to Lasix. Still slightly short of breath, but not as bad as yesterday when she was tachycardic from the atrial flutter. PHYSICAL EXAMINATION: CHEST: Clear, although she has a little prolonged expiration with slight expiratory wheeze even curr ently regular rate and rhythm. EXTREMITIES: Show no edema. ASSESSMENT AND PLAN: Atrial fibrillation flutter, now converted. Continue same anticoagulation. Vann s had a little increased confusion, so we will add some Geodon. Otherwise, continuing same antibioti cs and supportive care. Watching electrolytes for her arrhythmia, they are keeping her on telemetry for now. I appreciate Cardiology's input.
--- NOTE | 2018-03-09 18:20 | CON ---
DATE OF CONSULTATION: 03/08/2018 HISTORY OF PRESENT ILLNESS: The patient is an 82-year-old woman with a history of hypertension, who was noted to have rapid irregular heart rhythm. The patient is followed by Dr. Ochoa. She has a history of paroxysmal atrial fibrillation. She also has a history of multiple PEs and has had placement of an IVC filter. The patient was in her usual state of health when she presented with fevers, chills, and a severe urinary infection. The patient presented with respiratory failure and was subsequently intubated in the ICU with her urinary infection. The patient developed atrial fibrillation. She was placed on medication. She converted back to normal sinus rhythm. The patient at this time has been confused and is unable to give any coherent history. PAST MEDICAL HISTORY: 1. Atrial fibrillation. 2. Pulmonary emboli. 3. Hypertension. 4. Diabetes mellitus. 5. Obesity. PAST SURGICAL HISTORY: Cholecystectomy, hysterectomy, shoulder surgery, and IVC filter. SOCIAL HISTORY: Nonsmoker. FAMILY HISTORY: Positive family history of heart disease. Mother had a history of coronary artery disease. MEDICATIONS: Eliquis 5 b.i.d., lisinopril 20 daily, hydrocortisone 5 b.i.d., Lexapro 20 daily. PHYSICAL EXAMINATION: GENERAL: An obese, confused woman with a blood pressure of 150/69. NECK: No jugular venous distention. LUNGS: Have coarse breath sounds bilaterally. HEART: Regular rate and rhythm. Normal S1, S2. ABDOMEN: Distended. EXTREMITIES: Trace edema. LABORATORY RESULTS: White blood cell count 14.6, hemoglobin 12.1, hematocrit 36.7, and her platelets were 154. Her sodium was 138, potassium 3.2, chloride 98, bicarbonate 26, BUN 22, creatinine is 1, glucose is 339. Her EKG revealed her to have sinus tachycardia with left-axis deviation. Follow up resident athletic trainer revealed rapid atrial fibrillation. IMPRESSION: 1. Paroxysmal atrial fibrillation. 2. Sepsis. 3. Altered mental status. 4. Hypertension. 5. Diabetes mellitus. 6. Morbid obesity. This patient presents with atrial fibrillation. She is on IV Cardizem. Her heart rate is fairly well controlled and she remains in normal sinus rhythm. We will follow this patient with you through her hospitalization. JAYNA
--- NOTE | 2018-03-09 19:21 | PRG ---
DATE OF SERVICE: 03/09/2018 Lara Hansen apparently has been confused all week and has not slept all weekend. The family has been taking shifts. Sadly they are ready for this at all be over for her. They recognized that she will never be able to live alone independently with her dog again. They want her to go to inpatient hospice if this is feasible. I have written for more generous doses of Haldol to be given intraveno usly, hopefully to keep her sedation more under control. She is very agitated, asked me to hold her hand and would not let go. She did know she was in the hospital, and which hospital, but does not kn ow what day. PHYSICAL EXAMINATION: LUNGS: Clear. HEART: Regular rhythm. ABDOMEN: Soft. There is no really no reason to continue treating the atrial fibrillation since we are moving in to a comfort care only mode, but I will defer to her primary care doctor until a decision is made about w hether or not she needs to be transferred to inpatient hospice today. I think there is no hope for a functional recovery living independently given her extremely deconditioned state prior to this illne ss in the family just wants her to get in with hospice as soon as possible.
[2018-03-09] MEDS ORDERED: Melatonin 3 MG TAB PO SCH (21:00)
[2018-03-09] MEDS ORDERED: Apixaban 5 MG TAB PO SCH (21:00)
[2018-03-10 05:20] LABS: Anion Gap 16 mmol/L (10-20); BUN (Urea Nitrogen) 24 mg/dL (9.8-20.1); Calc. Creatinine Clearance 87 mL/min (70-130); Calcium 8.7 mg/dL (7.8-10.44); Carbon Dioxide 26 mmol/L (23-31); Chloride 103 mmol/L (98-107); Estimated GFR-MDRD 63; Glucose 190 mg/dL (83-110); Potassium 3.3 mmol/L (3.5-5.1); Sodium 142 mmol/L (136-145)
[2018-03-10] MEDS: Morphine 4 MG/ML VIAL SLOW IVP PRN (05:41)
[2018-03-10 07:36] LABS: Vancomycin, Trough 10.5 ug/mL
--- NOTE | 2018-03-10 08:02 | PDOC.EVN ---
Attending Addendum - Attending Addendum Date/Time: 03/10/18 2986 I personally evaluated the patient and discussed the management with Dr. Lala. I agree with the History, Examination, Assessment and Plan documented in his progress note with any addition or exceptions noted below. Family has opted to pursue inpatient hospice and we are moving to comfort measures only. She continues on diltiazem drip due to SVT and Afib but will discontinue that once placement has been determined. Pain control as needed and antipsychotics have been increased by Pulm to help with agitation and delirium. Awaiting acceptance to hospice services.
--- NOTE | 2018-03-10 08:25 | PDOC.FM ---
- Subjective Subjective: Patient did not sleep much last night. Light sleep during examination this AM. Per staff did get combative at times last night. - Objective Vital Signs & Weight: Vital Signs (12 hours) Temp Pulse Resp BP Pulse Ox 03/10/18 04:00 98.4 F 102 H 24 H 175/76 H 97 03/10/18 00:00 94 149/70 H Weight Admit Weight 112.491 kg Weight 109.815 kg Most Recent Monitor Data Heart Rate from ECG 93 NIBP 146/84 NIBP BP-Mean 103 Respiration from ECG 17 SpO2 90 I&O: 03/09/18 03/10/18 03/11/18 06:59 06:59 06:59 Intake Total 1580.5 880 Output Total 2200 2250 Balance -619.5 -1370 Result Diagrams: 03/09/18 04:47 03/10/18 04:50 Phys Exam - Physical Examination Constitutional: NAD HEENT: moist MMs Respiratory: clear to auscultation bilateral irregularly irregular Gastrointestinal: soft, non-tender Musculoskeletal: pulses present Neurological: moves all 4 limbs Skin: no rash, cap refill <2 seconds Dx/Plan (1) CASH (acute kidney injury) Code(s): N17.9 - ACUTE KIDNEY FAILURE, UNSPECIFIED Status: Acute (2) Calculous pyelonephritis Code(s): N20.0 - CALCULUS OF KIDNEY Status: Acute (3) Compromised respiratory status Code(s): R06.89 - OTHER ABNORMALITIES OF BREATHING Status: Acute (4) Elevated temperature Code(s): R50.9 - FEVER, UNSPECIFIED Status: Acute (5) Hypokalemia Code(s): E87.6 - HYPOKALEMIA Status: Acute (6) Hypotension Status: Acute (7) Metabolic encephalopathy Code(s): G93.41 - METABOLIC ENCEPHALOPATHY Status: Acute (8) Postoperative respiratory failure Code(s): J95.821 - ACUTE POSTPROCEDURAL RESPIRATORY FAILURE Status: Acute (9) Sepsis Code(s): A41.9 - SEPSIS, UNSPECIFIED ORGANISM Status: Acute (10) Thrombocytopenia Code(s): D69.6 - THROMBOCYTOPENIA, UNSPECIFIED Status: Acute - Plan Plan: 82 yo F admitted for sepsis 2/2 pyelonephritis, now s/p intubation/extubation # Hospice care - anticipate transfer to inpatient hospice care today - comfort care measures # Urinary Retention - young # Metabolic encephalopathy, now with intermittent delirium - likely attributable to sundowning - Per patient family she would not want intubation again - Hallucinations overnight a couple of nights ago - haldol dose increased last night, also received morpine - Cont Geodon # A fib/flutter with RVR - On diltiazem per Cardiology, will stop on discharge - Cards notified, appreciate Dr. Preciado's recommendations # Calculous pyelonephritis, resolved - s/p cycstoscopy with stent placement - Rocephin, transition to orals when tolerating more PO - appreciate urology recs - Blood cultures from [facility] grew Klebsiella species sensitive to Rocephin - Urine cultures from this facility grew Klebsiella species sensitive to Rocephin - Recommend 4w of antibiotics and further mgmt outpatient, patient will go home on hospice # Sepsis with respiratory failure, CASH, resolved - Resolved - likely 2/2 pyelonephritis - IVF changed to D5W to resolve electrolytes - Right IJ central line placed 03/[address] Avendaño - Palliative care on board to assist with ongoing discussion for goals of care - Pulm and Nephrology on board, following # Thrombocytopenia- resolved # Hypokalemia, hypomagnesemia - Likely secondary to Lasix use - Will replenish # Deconditioning - PT/OT consult - Case management consult # H/o PE - thrombocytopenia recently resolved - restarted eliquis 03/09 Disposition: anticipate transfer to hospice today
[2018-03-10] MEDS: Pantoprazole 40 MG VIAL IVP SCH (09:24)
[2018-03-10] MEDS: Docusate 100 MG CAP PO SCH (09:24)
--- NOTE | 2018-03-10 12:45 | PRG ---
DATE OF SERVICE: 03/10/2018 Over the past 24-48 hours it has been noted that the family would like to transfer her to hospice typ e setting which I think is appropriate, but I did not get to communicate with them today as they were not at the bedside. The patient has remained afebrile with vital signs stable, pulse still around 90s to 100s, satting 97 % on 3 liters nasal cannula. She does have labored breathing and she was able to open her eyes, but otherwise not communicative. ASSESSMENT: On assessment we have an 82-year-old female with urosepsis and significant postoperative complications despite a stent placement, who now is being transferred over to a hospice setting. PLAN: I would continue antibiotics for a total of 4 weeks, but anticipate that there will be no need for definitive stone therapy and keep the indwelling in for now.
[2018-03-10 13:06] VITALS: BP 164/75; TEMP 97.9
--- NOTE | 2018-03-10 16:31 | PRG ---
DATE OF SERVICE: 03/10/2018. OBJECTIVE: GENERAL: Lara Hansen is still confused, but nowhere near as agitated as she was yesterday. LUNGS: Clear. HEART: Regular rhythm. ABDOMEN: Soft. She is tentatively to go to inpatient hospice today. I met with the family and answered all their questions.
--- NOTE | 2018-03-11 15:29 | DIS-2 ---
DATE OF ADMISSION: 02/28/2018 DATE OF DISCHARGE: 03/10/2018 RESIDENT: Des Lala MD ADMITTING ATTENDING: Dr. Marybeth Dalton. DISCHARGE ATTENDING: Dr. Matthew Aponte. CONSULTATIONS: Cardiology, Nephrology, Pulmonology, Urology, hospice, PT, OT. PROCEDURES: See HPI. PRIMARY DIAGNOSIS: Sepsis likely secondary to pyelonephritis. SECONDARY DIAGNOSES: Renal calculus, thrombocytopenia, hypokalemia, history of pulmonary embolism, a trial fibrillation with rapid ventricular response, metabolic encephalopathy with intermittent deliri um. DISCHARGE MEDICATIONS: Comfort cares, to be determined by hospice team. HISTORY OF PRESENT ILLNESS AND HOSPITAL COURSE: Please see transition of care note signed by Dr. Adia Webb on 03/06/2018 as documented below. Patient is an 82-year-old female presenting following confusion and right flank pain on 02/28/2018. Patient was transferred from [facility] to [facility] for a procedure to be compl eted by Urology. Patient was subsequently intubated for that procedure. Patient remained on ventila tor until 03/05/2018. Patient was started on broad spectrum sepsis secondary to urinary tract infect ion specific antibiotics until culture results returned. Patient had positive urine cultures as well as blood cultures that grew out Klebsiella species sensitive to CEFTRIAXONE. Patient was transition ed to IV ceftriaxone and monotherapy. Patient had thrombocytopenia suspected to be secondary severe sepsis. Patient has had home Eliquis t hat was held up until 03/06/2018 due to thrombocytopenia. Initially, patient presented with a CASH secondary to obstructive stone. Her creatinine was trended w ith IV fluid with decent recovery of kidney function. Patient was showing signs of fluid response an d responded to IV Lasix. Hypokalemia secondary to Lasix occurred and she was replenished. Upon extu bation, patient had increased hallucinations and agitation, which waxed and waned. Frequent reorient ation with somewhat helpful but even with family around, she still wax and wane often. Various metho ds with including Haldol were attempted to try to mediate the delirium but were ultimately unsuccessf ul. Patient and family decided they did not want any invasive medical care. Ultimately, the decision was made for the patient to go to inpatient hospice. She had a few episodes of atrial fibrillation with RVR, which were treated with diltiazem. Her delirium never fully resolv ed. She required a sitter 23/12 and she was pulling at her lines. The family and [facility] decided that h ospice care was the route that she would want. Patient was transferred to inpatient hospice care. DISPOSITION: Guarded. DISCHARGE INSTRUCTIONS: 1. Location: Inpatient hospice. 2. Diet: Comfort feeds. 3. Activity: As tolerated. 4. Follow up with inpatient hospice team.
== END 2018-03-10 14:08 | disposition short-term general hospital (02) | DRG 853 ==
LOC: ERS 16:05 → SDC/OP 18:53 → IMCU/EMU 18:55 → CCU 20:01 → T4-B 03-05 16:05 → 2NO 03-07 10:21
PROVIDERS: ADMIT Family Medicine; ATTEND Family Medicine
PROC: 0T768DZ Dilation of Right Ureter with Intraluminal Device, Via Natural or Artificial Opening Endoscopic (ICD-10-PCS; principal; 2018-02-28)
PROC: 0BH17EZ Insertion of Endotracheal Airway into Trachea, Via Natural or Artificial Opening (ICD-10-PCS; 2018-02-28)
PROC: BT1D1ZZ Fluoroscopy of Right Kidney, Ureter and Bladder using Low Osmolar Contrast (ICD-10-PCS; 2018-02-28)
PROC: 02HV33Z Insertion of Infusion Device into Superior Vena Cava, Percutaneous Approach (ICD-10-PCS; 2018-03-01)
DX: A41.51 Sepsis due to Escherichia coli [E. coli] (principal); J95.821 Acute postprocedural respiratory failure; R65.21 Severe sepsis with septic shock; G93.41 Metabolic encephalopathy; N17.9 Acute kidney failure, unspecified; N20.9 Urinary calculus, unspecified; E03.9 Hypothyroidism, unspecified; M06.9 Rheumatoid arthritis, unspecified; I12.9 Hypertensive chronic kidney disease with stage 1 through stage 4 chronic kidney disease, or unspecified chronic kidney disease; E87.8 Other disorders of electrolyte and fluid balance, not elsewhere classified; E78.5 Hyperlipidemia, unspecified; E87.6 Hypokalemia; D64.9 Anemia, unspecified; D69.6 Thrombocytopenia, unspecified; N18.3 Chronic kidney disease, stage 3 (moderate); R00.0 Tachycardia, unspecified; B96.1 Klebsiella pneumoniae [K. pneumoniae] as the cause of diseases classified elsewhere; R33.9 Retention of urine, unspecified; Z86.711 Personal history of pulmonary embolism; E83.42 Hypomagnesemia; I48.0 Paroxysmal atrial fibrillation; E66.01 Morbid (severe) obesity due to excess calories; Z68.39 Body mass index [BMI] 39.0-39.9, adult; Z51.5 Encounter for palliative care
CPT/HCPCS: 36415; 36416; 71045; 74420; 80048; 80053; 80170; 80202; 81003; 81015; 82805; 83605; 83735; 83880; 84443; 85007; 85014; 85018; 85025; 85027; 85049; 86850; 86900; 86901; 87040; 87077; 87086; 87186; 93005; 93010; 93306; 94002; 94003; 96374; A4216; C1758; C1769; C9113; G8978-GP-CM; G8979-GP-CK; G8996-GN-CK; G8997-GN-CI; J0360; J0692; J0696; J1200; J1580; J1630; J1642; J1940; J1956; J2001; J2250; J2270; J2370; J2405; J2704; J2930; J3010; J3370; J3475; J3480; J7050; J7070; J7620; P9045; P9047; Q0162; Q9961

== ENCOUNTER 2018-05-31 18:01 | Emergency (ER) | payer MEDICARE, OTHER ==
[2018-05-31 19:50] LABS: #Eosinphils 0.3 thou/uL (0.0-0.7); #Lymphocytes 2.1 thou/uL (1.20-3.40); #Neutrophils 3.8 thou/uL (1.40-6.50); %Basophils 0.1 % (0.0-1.0); %Eosinophils 3.6 % (0.0-10.0); %Monocytes 14.1 % (0.0-10.0); %Neutrophils 53.2 % (42.0-75.0); Hemoglobin 12.2 g/dL (12.0-16.0); Mean Corpuscular HGB CONC 33.1 g/dL (32.0-36.0); Mean Corpuscular Hemoglobin 31.3 pg (27.0-31.0); Mean Corpuscular Volume 94.6 fL (78.0-98.0); Mean Platelet Volume 7.8 fL (7.4-10.4); Platelet Count 214 thou/uL (130-400); RBC Distribution Width 13.9 % (11.5-14.5); Red Blood Cell (RBC) Count 3.91 mill/uL (4.20-5.40); White Blood Cell (WBC) Count 7.1 thou/uL (4.8-10.8)
[2018-05-31 19:57] LABS: INR-International Normal Ratio 1.2; PTT 33.7 SEC (22.9-36.1); Prothrombin Time 15.5 SEC (12.0-14.7)
[2018-05-31 20:14] LABS: ALT (SGPT) Less than 7 U/L (8-55); AST (SGOT) 13 U/L (5-34); Albumin 3.1 g/dL (3.4-4.8); Alkaline Phosphatase 77 U/L (40-150); Anion Gap 12 mmol/L (10-20); BUN (Urea Nitrogen) 10 mg/dL (9.8-20.1); Bilirubin, Total 0.3 mg/dL (0.2-1.2); Calc. Creatinine Clearance 0 mL/min (70-130); Calcium 8.8 mg/dL (7.8-10.44); Carbon Dioxide 27 mmol/L (23-31); Chloride 102 mmol/L (98-107); Estimated GFR-MDRD 74; Globulin 3.6 g/dL (2.4-3.5); Glucose 118 mg/dL (83-110); Potassium 3.1 mmol/L (3.5-5.1); Protein, Total 6.7 g/dL (6.0-8.3); Sodium 138 mmol/L (136-145)
[2018-05-31 20:29] LABS: Bilirubin Moderate (Negative); Blood, Urine Large (Negative); Glucose, Urine (Dipstick) Negative (Negative); Leukocyte Large (Negative); Nitrite Positive (Negative); Protein, Urine (Dipstick) 100 mg/dL (Neg-Trace); pH, Urine 6.5 (5.0-9.0)
[2018-05-31 20:33] LABS: Clarity Opaque (Clear)
[2018-05-31 20:34] LABS: RBC/HPF GREATER THAN 50-TNTC HPF (0-3)
[2018-05-31 20:36] LABS: Bacteria/HPF 2+ HPF (None Seen); Hyaline Casts/LPF NONE SEEN LPF (0-3 Hyaline); Squamous Epithelial None Seen HPF (0-3)
--- NOTE | 2018-05-31 20:44 | RAD ---
RIGHT FOOT THREE VIEWS: History: Pain. Comparison: None. FINDINGS: Limited evaluation of the second through fifth digit due to persistent flexion. Lisfranc alignment co uld not be assessed. No definite fracture. There is a persistent metallic density projecting over the fifth metatarsal. There are degenerative changes of the talonavicular and navicular cuneiform joint space. IMPRESSION: 1. Presumed chronic changes. Evaluation is limited. 2. No obvious fracture. 3. Persistent metallic density at the base of the fifth metatarsal. Correlate clinically. POS: IMER
[2018-05-31] MEDS ORDERED: traMADol HCl 50 MG TAB ONE (21:55)
--- NOTE | 2018-05-31 22:08 | ULT ---
RIGHT LOWER EXTREMITY VENOUS DOPPLER WITH SPECTRAL ANALYSIS AND COLOR FLOW EVALUATION: Date: 05-31-18 History: Erythema and warmth of the right lower extremity. History of prior DVT in the left lower ext remity. FINDINGS: Grayscale, color flow, doppler evaluation, and spectral analysis of the right lower extremity venous structures is performed with 2D imaging. There is some increased echogenicity within the distal right lower extremity superficial femoral vein with incomplete lumen compressibility, but flow is present within this vein and findings are most suggestive of nonocclusive DVT. The exact age of this DVT is d ifficult to determine based on sonographic evaluation. There is normal lumen compressibility and flow seen in the remaining visualized deep venous structure s of the right lower extremity. IMPRESSION: 1. Nonocclusive DVT of indeterminate age involving the right lower extremity distal superficial femor al vein. 2. Above findings discussed with Dr. Sin in the Emergency Department on 05-31-18 at 2004 hours. POS: ABAD
== END 2018-05-31 21:58 | disposition home or self-care (01) ==
LOC: ERS 18:01
DX: I82.401 Acute embolism and thrombosis of unspecified deep veins of right lower extremity (principal); E87.6 Hypokalemia; E78.5 Hyperlipidemia, unspecified; I10 Essential (primary) hypertension; Z86.711 Personal history of pulmonary embolism; F41.9 Anxiety disorder, unspecified; F32.9 Major depressive disorder, single episode, unspecified; Z79.899 Other long term (current) drug therapy
CPT/HCPCS: 36415; 80053; 81003; 81015; 85025; 85610; 85730; 86850; 86900; 86901

== ENCOUNTER 2018-06-03 14:25 | Emergency (ER) | payer MEDICARE, OTHER ==
[2018-06-03 16:28] LABS: #Basophils 0.1 thou/uL (0.0-0.2); #Eosinphils 0.3 thou/uL (0.0-0.7); #Monocytes 0.6 thou/uL (0.11-0.59); #Neutrophils 3.1 thou/uL (1.40-6.50); %Basophils 0.9 % (0.0-1.0); %Eosinophils 4.4 % (0.0-10.0); %Lymphocytes 33.1 % (21.0-51.0); %Monocytes 10.7 % (0.0-10.0); %Neutrophils 50.9 % (42.0-75.0); Hemoglobin 12.4 g/dL (12.0-16.0); Mean Corpuscular HGB CONC 33.2 g/dL (32.0-36.0); Mean Corpuscular Hemoglobin 31.7 pg (27.0-31.0); Mean Corpuscular Volume 95.4 fL (78.0-98.0); Mean Platelet Volume 7.7 fL (7.4-10.4); Platelet Count 224 thou/uL (130-400); RBC Distribution Width 13.8 % (11.5-14.5); Red Blood Cell (RBC) Count 3.91 mill/uL (4.20-5.40)
[2018-06-03] MEDS ORDERED: Fentanyl 100 MCG/2 ML VIAL ONE (16:35)
[2018-06-03 16:51] LABS: ALT (SGPT) Less than 7 U/L (8-55); AST (SGOT) 12 U/L (5-34); Albumin 3.1 g/dL (3.4-4.8); Alkaline Phosphatase 81 U/L (40-150); Anion Gap 14 mmol/L (10-20); BUN (Urea Nitrogen) 13 mg/dL (9.8-20.1); Bilirubin, Total 0.3 mg/dL (0.2-1.2); Calc. Creatinine Clearance 0 mL/min (70-130); Calcium 9.1 mg/dL (7.8-10.44); Carbon Dioxide 27 mmol/L (23-31); Chloride 105 mmol/L (98-107); Estimated GFR-MDRD 75; Globulin 3.2 g/dL (2.4-3.5); Glucose 117 mg/dL (83-110); Potassium 3.7 mmol/L (3.5-5.1); Protein, Total 6.3 g/dL (6.0-8.3); Sodium 142 mmol/L (136-145)
[2018-06-03 17:40] LABS: Blood, Urine Large (Negative); Clarity TURBID (Clear); Glucose, Urine (Dipstick) Negative (Negative); Leukocyte Large (Negative); Protein, Urine (Dipstick) 100 mg/dL (Neg-Trace); Specific Gravity, Urine 1.015 (1.002-1.036); pH, Urine 6.5 (5.0-9.0)
[2018-06-03 17:43] LABS: Bacteria/HPF None Seen HPF (None Seen)
[2018-06-03 17:44] LABS: Yeast-AUWi Flag 783.2 (0-25.0)
[2018-06-03 17:52] LABS: Bilirubin Unable to Interpret (Negative); Nitrite Unable to Interpret (Negative); RBC/HPF GREATER THAN 50-TNTC HPF (0-3)
[2018-06-03 17:53] LABS: Hyaline Casts/LPF 0-3 HYALINE CAST LPF (0-3 Hyaline); Other Casts/LPF None Seen LPF (0-3 Hyaline); Yeast-All Forms None Seen HPF (None Seen)
== END 2018-06-03 19:42 ==
LOC: ERS 14:25
DX: I82.401 Acute embolism and thrombosis of unspecified deep veins of right lower extremity (principal); N39.0 Urinary tract infection, site not specified; E78.5 Hyperlipidemia, unspecified; I10 Essential (primary) hypertension; F41.9 Anxiety disorder, unspecified; F32.9 Major depressive disorder, single episode, unspecified; Z79.899 Other long term (current) drug therapy
CPT/HCPCS: 80053; 81003; 81015; 85025; 87086; 93005; 96374; A4353; J3010

== ENCOUNTER 2018-06-15 09:36 | Outpatient (CLI) | payer MEDICARE, OTHER ==
[2018-06-15 12:20] LABS: #Eosinphils 0.1 thou/uL (0.0-0.7); #Lymphocytes 2.2 thou/uL (1.20-3.40); #Monocytes 0.6 thou/uL (0.11-0.59); %Basophils 0.6 % (0.0-1.0); %Eosinophils 1.7 % (0.0-10.0); %Lymphocytes 31.5 % (21.0-51.0); %Neutrophils 57.1 % (42.0-75.0); Hemoglobin 12.6 g/dL (12.0-16.0); Mean Corpuscular HGB CONC 31.8 g/dL (32.0-36.0); Mean Corpuscular Hemoglobin 29.9 pg (27.0-31.0); Mean Corpuscular Volume 93.9 fL (78.0-98.0); Mean Platelet Volume 7.6 fL (7.4-10.4); Platelet Count 327 thou/uL (130-400); RBC Distribution Width 13.8 % (11.5-14.5); Red Blood Cell (RBC) Count 4.21 mill/uL (4.20-5.40); White Blood Cell (WBC) Count 7.1 thou/uL (4.8-10.8)
[2018-06-15 12:59] LABS: Anion Gap 14 mmol/L (10-20); BUN (Urea Nitrogen) 11 mg/dL (9.8-20.1); Calc. Creatinine Clearance 0 mL/min (70-130); Calcium 9.6 mg/dL (7.8-10.44); Carbon Dioxide 25 mmol/L (23-31); Chloride 104 mmol/L (98-107); Estimated GFR-MDRD 74; Glucose 127 mg/dL (83-110); Potassium 3.5 mmol/L (3.5-5.1); Sodium 139 mmol/L (136-145)
== END 2018-06-15 09:37 | disposition home or self-care (01) ==
LOC: LABBT 09:36
PROVIDERS: ATTEND Urology
DX: Z01.812 Encounter for preprocedural laboratory examination (principal); N20.0 Calculus of kidney; N20.1 Calculus of ureter; N39.0 Urinary tract infection, site not specified; N39.46 Mixed incontinence; R31.0 Gross hematuria
CPT/HCPCS: 85025

== ENCOUNTER 2018-06-16 05:57 | Day surgery (SDC) | payer MEDICARE, OTHER ==
[2018-06-15 11:20] VITALS: BMI 36.1
[2018-06-16] MEDS ORDERED: Iothalamate Meglumine 60% 50 ML VIAL FS ONE (07:09)
[2018-06-16] MEDS ORDERED: cefTRIAXone\\ROCEPHIN 1 GM VIAL ONE (07:12)
[2018-06-16] MEDS ORDERED: Sodium Chloride 0.9% 100 ML ONE (07:12)
[2018-06-16] MEDS ORDERED: Fentanyl 100 MCG/2 ML VIAL ONE (07:24)
[2018-06-16] MEDS ORDERED: Furosemide 20 MG/2 ML VIAL ONE (09:15)
[2018-06-16] MEDS ORDERED: ePHEDrine/0.9% NaCl/PF SYRINGE 50 mg/10 ml ONE (13:53)
[2018-06-16] MEDS ORDERED: Lidocaine 1% PF 5 ML VIAL ONE (13:53)
[2018-06-16] MEDS ORDERED: Rocuronium Bromide 10 MG/ML (10ML VIAL) ONE (13:53)
[2018-06-16] MEDS ORDERED: Glycopyrrolate 0.2 MG/ML 5 ML SYRINGE ONE (13:53)
[2018-06-16] MEDS ORDERED: Ondansetron PF 4 MG/2 ML Vial ONE (13:53)
[2018-06-16] MEDS ORDERED: PROPOFOL 200 MG/20 ML VIAL ONE (13:53)
[2018-06-16] MEDS ORDERED: PHENYLEPHRINE-NS 100 MCG/ML 10 ML SYRINGE ONE (13:53)
[2018-06-16] MEDS ORDERED: Dexamethasone 20 MG/5 ML VIAL ONE (13:53)
--- NOTE | 2018-06-17 00:41 | OP ---
DATE OF PROCEDURE: 06/16/2018 PREOPERATIVE DIAGNOSIS: Left ureteral stone. POSTOPERATIVE DIAGNOSIS: Encrusted left ureteral stent. ANESTHESIA: General with endotracheal tube. FINDINGS: Significantly encrusted stent including proximal coil that would not unfurl, but ultimately with lithotripsy, I was able to remove the stone fragments and extract the stent intact safely. Removal of all debris in ureter and kidney. ESTIMATED BLOOD LOSS: Minimal. COMPLICATIONS: None other than the encrusted stent. PROCEDURES PERFORMED: Cystoscopy, left ureteroscopy, left holmium laser lithotripsy, removal of encrusted stent, and replacement of 6 x 24 double-J stent. INDICATIONS FOR PROCEDURE: The patient is an 82-year-old female, who was admitted back in January with sepsis and an obstructing stone, underwent an urgent stent placement, and throughout the hospital stay, she had multiple organ failure and ultimately was placed on hospice, but in the past few months, she has rallied back with respect to her health and presented for definitive discussion of the stent , but she still had indwelling. We discussed that needed to be changed soon than later , and it would be worthwhile doing ureteroscopy to get any remaining stone out, so that the stent would not have to be changed periodically. DESCRIPTION OF PROCEDURE: The patient was brought to the room by Anesthesia, laid on the table in supine position. After receiving general anesthetic, the legs were placed in lithotomy position and her perineum was prepped and draped in sterile fashion. Using a 22-Luxembourgish cystoscope and 30 degree lens, urethra was traversed. The bladder was noted to have some inflammation with the stent, grasped and brought out through the urethral meatus. Multiple different wires including a Super Stiff as well as a regular Bentson wire that had a more stiff proximal end were unable to unfurl the stent. So keeping a portion of it outside and clamped to the drape, the cystoscope was placed back in and then a wire was placed alongside the existing stent. This went in without difficulty and then one wire which was a regular Bentson wire was placed easily and then a second wire was a Super Stiff wire that was placed next to it as well also without difficulty and it was over this Super Stiff wire that the ureteral sheath was placed after removing the cystoscope and keeping all wires intact. Then, the flexible ureteroscope was placed over the Super Stiff and set along up to the kidney itself. At this point, the Super Stiff wire was removed, but there was still the safety Bentson wire and the existing encrusted stent, and inspection of the entire kidney revealed no stones other than an encrusted papilla that did not appear at the density on the fluoroscopy. This was small and covering the papilla, so I did not feel like it was appropriate to laser lithotripsy this component. There was one calcification noted on fluoroscopy. However, inspection of the kidney in this area revealed that was not within the kidney, at least not the collecting component, so there were no obvious stones within the kidney and then the flexible cystoscope was taken back to the level of the stent, where obvious stone was noted at the proximal end and laser lithotripsy was used to burst up these fragments carefully, so as not to completely fragment or break off the portion of the stent. After significant amount of time, then the flexible scope was removed , leaving the ureteral stent and sheath in place, an attempt was made to try to pull the existing stent out after attempting again to unfurl it with a wire, which was unsuccessful, so the flexible cystoscope was put back in and further lithotripsy occurred at the proximal portion of the stent. At this point, the flexible cystoscope was removed, and as I gently pulled on the existing stent, it did finally come free, and so that and the ureteral sheath were removed at the same time, so as to minimize ureteral trauma. With the existing stent all the way out, there still remained a safety wire, and I wanted to re-evaluate the ureter and make sure no fragments remained, so the cystoscope was put back in order to place the ureteral sheath again and then the flexible cystoscope was taken up all the way to the kidney again and no concerning fragments were noted, but some debris was seen and so multiple passes were made and basketed out for debris, these were not definitive stones, were not sent for specimen. The final path showed nothing of concern. So at this point, at the end of the ureteral sheath, I slowly removed the ureteral sheath with visualization of its end to make sure that the ureteral sheath had not blocked any stones and none of significant size were noted, so at this point, the ureteral sheath was out as was the flexible ureteroscope and the existing wire was then back fed over the cystoscope and a 6 x 24 double-J was placed with a good coil visualized in the renal pelvis via fluoroscopy and a good coil visualized in the bladder via cystoscopy. The scope was broken apart. Bladder drained and then removed in its entirety. The patient tolerated the procedure well. Job ID: [id number] [facility]
[2018-06-19 11:26] LABS: CA Phosphate 63 % (.); Color Tan (.); Comment Comment: (.); Comment Note: (.); Mg Ammon Phos 25 % (.)
== END 2018-06-16 11:18 | disposition home or self-care (01) ==
LOC: SDC 05:57
PROVIDERS: ATTEND Urology
PROC: 0TF78ZZ Fragmentation in Left Ureter, Via Natural or Artificial Opening Endoscopic (ICD-10-PCS; principal; 2018-06-16)
PROC: 0T778DZ Dilation of Left Ureter with Intraluminal Device, Via Natural or Artificial Opening Endoscopic (ICD-10-PCS; 2018-06-16)
DX: N20.1 Calculus of ureter (principal); T83.192A Other mechanical complication of indwelling ureteral stent, initial encounter; N39.46 Mixed incontinence; R35.0 Frequency of micturition; R35.1 Nocturia; I10 Essential (primary) hypertension; E78.5 Hyperlipidemia, unspecified; K21.9 Gastro-esophageal reflux disease without esophagitis; E03.9 Hypothyroidism, unspecified; M19.90 Unspecified osteoarthritis, unspecified site; M48.061 Spinal stenosis, lumbar region without neurogenic claudication; E55.9 Vitamin D deficiency, unspecified; E27.40 Unspecified adrenocortical insufficiency; E66.9 Obesity, unspecified; Z68.36 Body mass index [BMI] 36.0-36.9, adult; Z79.01 Long term (current) use of anticoagulants; Z79.899 Other long term (current) drug therapy; Z88.0 Allergy status to penicillin; Z88.6 Allergy status to analgesic agent; Z88.8 Allergy status to other drugs, medicaments and biological substances
CPT/HCPCS: 52356; 76000; 82365; 88300; C1758; C1769; J0696; J1100; J1940; J2001; J2405; J2704; J3010; J7050; Q9961

== ENCOUNTER 2018-09-25 10:17 | Outpatient (CLI) | payer MEDICARE, OTHER ==
--- NOTE | 2018-09-25 11:56 | ULT ---
Renal sonogram HISTORY: Renal stones. FINDINGS: Right kidney is 11.6 cm length. Thinning of the cortex. No hydronephrosis. At the inferior pole, an exophytic 1.9 cm slightly echogenic cyst is again demonstrated. Left kidney is 12.0 cm. Thinning of the cortex. No hydronephrosis. At the inferior pole, a slightly e chogenic 2.8 cm cyst is again generated. Urinary bladder has a normal appearance. Left ureteral jet seen. Right ureteral jet not well document ed. IMPRESSION: No evidence of urinary tract obstruction. Thinning of the renal cortex bilaterally. Bilateral renal cysts.
== END 2018-09-25 10:18 | disposition home or self-care (01) ==
LOC: SCSULT 10:17
PROVIDERS: ATTEND Urology
DX: N20.0 Calculus of kidney (principal); N28.1 Cyst of kidney, acquired; N28.89 Other specified disorders of kidney and ureter
CPT/HCPCS: 76770

== ENCOUNTER 2019-10-04 11:15 | Outpatient (CLI) | payer MEDICARE, OTHER ==
--- NOTE | 2019-10-04 12:15 | ULT ---
Renal sonogram HISTORY: Urinary tract infection. FINDINGS: Right kidney is 8.9 cm length. Cortical cyst at the inferior pole is 2.3 cm greatest diameter. No hyd ronephrosis or mass. Left kidney is 12.2 cm length. Cyst at the inferior pole is 2.7 cm. No hydronephrosis or mass. Urinary bladder is decompressed. IMPRESSION : No significant abnormalities are demonstrated. Incidental note of bilateral renal cysts.
== END 2019-10-04 11:16 | disposition home or self-care (01) ==
LOC: SCSULT 11:15
PROVIDERS: ATTEND Family Medicine
DX: N39.0 Urinary tract infection, site not specified (principal); N28.1 Cyst of kidney, acquired
CPT/HCPCS: 76770

== ENCOUNTER 2021-03-12 12:30 | Outpatient (CLI) | payer MEDICARE, OTHER ==
[2021-03-12 14:35] LABS: PTT 25.4 sec (22.0-33.0); Prothrombin Time 11.3 sec (9.5-12.1)
[2021-03-12 14:36] LABS: Hemoglobin 13.6 g/dL (12.0-15.5); Mean Corpuscular HGB CONC 31.9 g/dL (32.0-36.0); Mean Corpuscular Hemoglobin 30.6 pg (27.0-33.0); Mean Corpuscular Volume 96.2 fl (81.6-98.3); Mean Platelet Volume 10.5 fl (7.4-10.4); Platelet Count 301 10x3/uL (150-450); RBC Distribution Width 14.8 % (11.5-14.5); Red Blood Cell (RBC) Count 4.44 10x6/uL (3.90-5.03); White Blood Cell (WBC) Count 5.8 10x3/uL (3.5-10.5)
[2021-03-12 14:38] LABS: Anion Gap 14 mmol/L (10-20); BUN (Urea Nitrogen) 24 mg/dL (9.8-20.1); Calc. Creatinine Clearance 0 mL/min (70-130); Calcium 10.8 mg/dL (7.8-10.44); Carbon Dioxide 28 mmol/L (23-31); Chloride 104 mmol/L (98-107); Glucose 112 mg/dL (83-110); Potassium 4.2 mmol/L (3.5-5.1); Sodium 142 mmol/L (136-145)
[2021-03-12 14:54] LABS: Bilirubin Neg (Negative); Blood, Urine 250 (Negative); Clarity Cloudy (Clear); Glucose, Urine (Dipstick) Normal (Negative); Ketone, Urine Negative (Negative); Leukocyte 500 (Negative); Nitrite Positive (Negative); Protein, Urine (Dipstick) 100 mg/dl (Neg-Trace); Urobilinogen Normal mg/dL (Less than 2)
[2021-03-12 15:22] LABS: Renal Epithelial 0-3 HPF (None Seen)
[2021-03-12 15:23] LABS: Bacteria/HPF 1+ HPF (None Seen)
[2021-03-13 14:36] LABS: SARS-CoV-2 PCR by NAA Not Detected (NotDetected)
== END 2021-03-12 12:31 | disposition home or self-care (01) ==
LOC: LABBT 12:30
PROVIDERS: ATTEND Urology
DX: Z01.818 Encounter for other preprocedural examination (principal); N20.0 Calculus of kidney; R31.0 Gross hematuria; N39.46 Mixed incontinence; Z20.822 Contact with and (suspected) exposure to COVID-19
CPT/HCPCS: 80048; 81001; 85027; 85610; 85730; 87086; U0003; U0005; 93005; 93010

== ENCOUNTER 2021-03-15 10:00 | Inpatient (IN) | payer MEDICARE, OTHER ==
[2021-03-15] MEDS ORDERED: Levofloxacin 500 mg/D5W 100 ml Premix Bag ONE (12:50)
[2021-03-15] MEDS ORDERED: B & O 30 MG SUPP ONE (14:11)
[2021-03-15] MEDS ORDERED: Iothalamate Meglumine 60% 50 ML VIAL FS ONE (14:11)
[2021-03-15] MEDS ORDERED: Fentanyl 100 MCG/2 ML VIAL ONE (14:15)
[2021-03-15] MEDS ORDERED: Glycopyrrolate 0.2 MG/ML 5 ML SYRINGE ONE (14:32)
[2021-03-15] MEDS ORDERED: Rocuronium Bromide 10 MG/ML (10ML VIAL) ONE (14:32)
[2021-03-15] MEDS ORDERED: PHENYLEPHRINE-NS 100 MCG/ML 10 ML SYRINGE ONE (14:32)
[2021-03-15] MEDS ORDERED: PROPOFOL 200 MG/20 ML VIAL ONE (14:32)
[2021-03-15] MEDS ORDERED: Ondansetron PF 4 MG/2 ML Vial ONE (14:32)
[2021-03-15] MEDS ORDERED: Dexamethasone 20 MG/5 ML VIAL ONE (14:32)
[2021-03-15] MEDS ORDERED: ePHEDrine 50 MG/ML VIAL ONE (14:32)
[2021-03-15] MEDS ORDERED: Lidocaine 1% PF 5 ML VIAL ONE (14:32)
[2021-03-15] MEDS ORDERED: Meperidine HCl/PF 25 MG/ML VIAL ONE (16:36)
[2021-03-15] MEDS ORDERED: Albuterol Sulfate 1.25 MG/3 ML NEB ONE (17:59)
[2021-03-15] MEDS ORDERED: Midazolam HCl 2 mg/2 ml Vial ONE (18:31)
[2021-03-15] MEDS ORDERED: Acetaminophen 650 MG Suppository PR PRN (21:36)
[2021-03-15] MEDS ORDERED: Ondansetron ODT 4 MG TAB PO PRN (21:36)
[2021-03-15] MEDS ORDERED: Ondansetron PF 4 MG/2 ML Vial IVP PRN (21:36)
[2021-03-15 22:13] LABS: ALT (SGPT) 55 U/L (8-55); AST (SGOT) 152 U/L (5-34); Albumin 3.3 g/dL (3.4-4.8); Alkaline Phosphatase 49 U/L (40-110); Anion Gap 14 mmol/L (10-20); BUN (Urea Nitrogen) 21 mg/dL (9.8-20.1); Calc. Creatinine Clearance 65 mL/min (70-130); Calcium 8.6 mg/dL (7.8-10.44); Carbon Dioxide 24 mmol/L (23-31); Chloride 107 mmol/L (98-107); Globulin 2.4 g/dL (2.4-3.5); Glucose 205 mg/dL (83-110); Potassium 3.9 mmol/L (3.5-5.1); Protein, Total 5.7 g/dL (5.8-8.1); Sodium 141 mmol/L (136-145)
[2021-03-15 22:20] LABS: Troponin I 0.024 ng/mL (< 0.028)
[2021-03-15 23:55] LABS: #Basophils 0.1 thou/uL (0.0-0.2); #Lymphocytes 0.2 thou/uL (1.20-3.40); #Monocytes 0.5 thou/uL (0.11-0.59); #Neutrophils 11.5 thou/uL (1.40-6.50); %Basophils 0.6 % (0.0-1.0); %Eosinophils 0.1 % (0.0-10.0); %Lymphocytes 1.6 % (21.0-51.0); %Monocytes 3.8 % (0.0-10.0); %Neutrophils 93.9 % (42.0-75.0); Hemoglobin 12.3 g/dL (12.0-16.0); Mean Corpuscular HGB CONC 32.9 g/dL (32.0-36.0); Mean Corpuscular Hemoglobin 31.5 pg (27.0-31.0); Mean Corpuscular Volume 95.6 fL (78.0-98.0); Mean Platelet Volume 7.7 fL (7.4-10.4); Platelet Count 223 thou/uL (130-400); RBC Distribution Width 13.8 % (11.5-14.5); Red Blood Cell (RBC) Count 3.91 mill/uL (4.20-5.40); White Blood Cell (WBC) Count 12.3 thou/uL (4.8-10.8)
[2021-03-16] MEDS ORDERED: HumaLOG 300 UNITS/3 ML VIAL SC PRN (01:19)
[2021-03-16] MEDS ORDERED: Dextrose 5% in Water 1,000 ML IV PRN (01:19)
[2021-03-16] MEDS ORDERED: Dextrose 50% Abboject 50 ML SYRINGE SLOW IVP PRN (01:19)
[2021-03-16 05:38] LABS: Anion Gap 17 mmol/L (10-20); BUN (Urea Nitrogen) 17 mg/dL (9.8-20.1); Calc. Creatinine Clearance 75 mL/min (70-130); Calcium 8.8 mg/dL (7.8-10.44); Carbon Dioxide 22 mmol/L (23-31); Chloride 104 mmol/L (98-107); Glucose 135 mg/dL (83-110); Sodium 139 mmol/L (136-145)
[2021-03-16 05:44] LABS: Troponin I 0.018 ng/mL (< 0.028)
[2021-03-16 05:45] LABS: Bacteria/HPF 2+ HPF (None Seen); Bilirubin Negative (Negative); Blood, Urine 3+ (Negative); Clarity Turbid (Clear); Glucose, Urine (Dipstick) Normal (Negative); Ketone, Urine Negative (Negative); Leukocyte 500 Leu/uL (Negative); Nitrite Negative (Negative); Protein, Urine (Dipstick) 100 mg/dL (Neg-Trace); RBC/HPF Greater than 50 HPF (0-3); Specific Gravity, Urine 1.015 (1.002-1.036); Squamous Epithelial 0-3 HPF (0-3); Urobilinogen Normal mg/dL (Less than 2); WBC/HPF Greater than 50 HPF (0-3); pH, Urine 6.5 (5.0-9.0)
[2021-03-16 06:01] LABS: Band 22 % (5-11); Hemoglobin 13.7 g/dL (12.0-16.0); Lymphocytes 5 % (21-51); MDiff Complete? YES; Mean Corpuscular HGB CONC 33.9 g/dL (32.0-36.0); Mean Corpuscular Hemoglobin 32.4 pg (27.0-31.0); Mean Corpuscular Volume 95.4 fL (78.0-98.0); Mean Platelet Volume 7.5 fL (7.4-10.4); Monocytes 1 % (0-10); Neutrophil 72 % (42-75); Platelet Count 217 thou/uL (130-400); Platelet Morphology Comment Appears Adequate; RBC Distribution Width 13.8 % (11.5-14.5); RBC Morphology Normal; Red Blood Cell (RBC) Count 4.25 mill/uL (4.20-5.40); White Blood Cell (WBC) Count 12.1 thou/uL (4.8-10.8)
[2021-03-16] MEDS: Acetaminophen 325 MG TAB PO PRN ×2 (07:35→14:41)
[2021-03-16] MEDS ORDERED: Iopamidol-370 76% 500 ML 1 ML ONE (09:34)
[2021-03-16] MEDS: Sodium Chloride 0.9% 1,000 ML IV SCH (15:46)
[2021-03-17] MEDS ORDERED: ALPRAZolam 0.5 MG TAB PO SCH (00:45)
[2021-03-17] MEDS: Sodium Chloride 0.9% 1,000 ML IV SCH ×2 (01:00→11:39)
[2021-03-17] MEDS: Acetaminophen 325 MG TAB PO PRN ×3 (02:26→21:35)
[2021-03-17 04:53] LABS: #Eosinphils 0.2 thou/uL (0.0-0.7); #Lymphocytes 0.7 thou/uL (1.20-3.40); #Monocytes 0.7 thou/uL (0.11-0.59); #Neutrophils 5.9 thou/uL (1.40-6.50); %Basophils 0.4 % (0.0-1.0); %Eosinophils 2.4 % (0.0-10.0); %Lymphocytes 9.8 % (21.0-51.0); %Monocytes 8.9 % (0.0-10.0); %Neutrophils 78.5 % (42.0-75.0); Hemoglobin 11.6 g/dL (12.0-16.0); Mean Corpuscular HGB CONC 33.4 g/dL (32.0-36.0); Mean Corpuscular Volume 95.8 fL (78.0-98.0); Mean Platelet Volume 8.2 fL (7.4-10.4); Platelet Count 150 thou/uL (130-400); RBC Distribution Width 13.9 % (11.5-14.5); Red Blood Cell (RBC) Count 3.62 mill/uL (4.20-5.40); White Blood Cell (WBC) Count 7.5 thou/uL (4.8-10.8)
[2021-03-17 05:12] LABS: Anion Gap 11 mmol/L (10-20); BUN (Urea Nitrogen) 12 mg/dL (9.8-20.1); Calc. Creatinine Clearance 79 mL/min (70-130); Calcium 7.9 mg/dL (7.8-10.44); Carbon Dioxide 22 mmol/L (23-31); Chloride 106 mmol/L (98-107); Glucose 130 mg/dL (83-110); Potassium 3.4 mmol/L (3.5-5.1); Sodium 136 mmol/L (136-145)
[2021-03-17] MEDS ORDERED: Potassium Chloride 20 MEQ TAB PO SCH (10:30)
[2021-03-17] MEDS ORDERED: Benzocaine (Dental) 7 GM TUBE TOP PRN (16:33)
[2021-03-17] MEDS: ALPRAZolam 0.5 MG TAB PO SCH (21:35)
[2021-03-18 04:47] LABS: #Basophils 0.1 thou/uL (0.0-0.2); #Eosinphils 0.2 thou/uL (0.0-0.7); #Lymphocytes 1.3 thou/uL (1.20-3.40); #Monocytes 0.8 thou/uL (0.11-0.59); #Neutrophils 4.6 thou/uL (1.40-6.50); %Basophils 0.8 % (0.0-1.0); %Eosinophils 2.5 % (0.0-10.0); %Lymphocytes 18.4 % (21.0-51.0); %Monocytes 11.2 % (0.0-10.0); %Neutrophils 67.2 % (42.0-75.0); Hemoglobin 11.9 g/dL (12.0-16.0); Mean Corpuscular HGB CONC 31.8 g/dL (32.0-36.0); Mean Corpuscular Hemoglobin 30.7 pg (27.0-31.0); Mean Corpuscular Volume 96.4 fL (78.0-98.0); Mean Platelet Volume 8.2 fL (7.4-10.4); Platelet Count 156 thou/uL (130-400); RBC Distribution Width 13.8 % (11.5-14.5); Red Blood Cell (RBC) Count 3.87 mill/uL (4.20-5.40); White Blood Cell (WBC) Count 6.8 thou/uL (4.8-10.8)
[2021-03-18 05:10] LABS: ALT (SGPT) 42 U/L (8-55); AST (SGOT) 33 U/L (5-34); Albumin 2.9 g/dL (3.4-4.8); Alkaline Phosphatase 56 U/L (40-110); Anion Gap 10 mmol/L (10-20); BUN (Urea Nitrogen) 10 mg/dL (9.8-20.1); Bilirubin, Total 0.5 mg/dL (0.2-1.2); Calc. Creatinine Clearance 81 mL/min (70-130); Calcium 8.4 mg/dL (7.8-10.44); Carbon Dioxide 26 mmol/L (23-31); Chloride 107 mmol/L (98-107); Globulin 2.6 g/dL (2.4-3.5); Glucose 135 mg/dL (83-110); Potassium 4.5 mmol/L (3.5-5.1); Protein, Total 5.5 g/dL (5.8-8.1); Sodium 138 mmol/L (136-145)
[2021-03-18] MEDS: Acetaminophen 325 MG TAB PO PRN (20:15)
[2021-03-18] MEDS: ALPRAZolam 0.5 MG TAB PO SCH (20:15)
[2021-03-19] MEDS: HumaLOG 300 UNITS/3 ML VIAL SC PRN (11:55)
[2021-03-19] MEDS ORDERED: Polyethylene Glycol 3350 17 GM Packet PO PRN (16:01)
[2021-03-19] MEDS: Acetaminophen 325 MG TAB PO PRN (21:47)
[2021-03-19] MEDS: ALPRAZolam 0.5 MG TAB PO SCH (21:47)
[2021-03-20] MEDS ORDERED: Furosemide 20 MG TAB PO PRN ×2 (08:51→08:54)
[2021-03-20] MEDS ORDERED: INULIN PO SCH (09:00)
[2021-03-20] MEDS ORDERED: [UNRECOGNIZED DRUG - OTHER] PO SCH (09:00)
[2021-03-20] MEDS ORDERED: BACILLUS COAGULANS PO SCH (09:00)
[2021-03-20] MEDS ORDERED: Apixaban 5 MG TAB PO SCH (09:00)
[2021-03-20] MEDS: Saccharomyces boulardii 250 MG CAP PO SCH (09:19)
[2021-03-20] MEDS: Escitalopram Oxalate 10 mg Tablet PO SCH (09:19)
[2021-03-20] MEDS: Apixaban 5 MG TAB PO SCH ×2 (09:22→19:59)
[2021-03-20] MEDS ORDERED: metFORMIN XR 500 MG TAB PO SCH ×2 (17:00)
[2021-03-20] MEDS: HumaLOG 300 UNITS/3 ML VIAL SC PRN (17:27)
[2021-03-20] MEDS: ALPRAZolam 0.5 MG TAB PO SCH (19:58)
[2021-03-20] MEDS ORDERED: Fenofibrate Nanocrystallized 145 MG TAB PO SCH (21:00)
[2021-03-20] MEDS ORDERED: FENOFIBRATE 160 MG PO SCH (21:00)
[2021-03-20] MEDS: Acetaminophen 325 MG TAB PO PRN (23:14)
[2021-03-21 08:51] VITALS: BMI 33.5
[2021-03-21] MEDS: Saccharomyces boulardii 250 MG CAP PO SCH (08:51)
[2021-03-21] MEDS: Escitalopram Oxalate 10 mg Tablet PO SCH (08:51)
[2021-03-21] MEDS: Apixaban 5 MG TAB PO SCH (08:51)
[2021-03-21 15:39] VITALS: TEMP 97.7
[2021-03-21 16:34] VITALS: BP 142/65
[2021-03-22 10:40] LABS: CA Oxalate Monohydrate 20 % (.); Color Tan (.); Mg Ammon Phos 60 % (.); Stone Weight 396 mg (.)
== END 2021-03-21 15:40 | DRG 854 ==
LOC: SDC 10:00 → 2NO 19:48 → OBSVTOIN 03-16 14:22
PROVIDERS: ADMIT Urology; ATTEND Internal Medicine
PROC: 0TC38ZZ Extirpation of Matter from Right Kidney Pelvis, Via Natural or Artificial Opening Endoscopic (ICD-10-PCS; principal; 2021-03-15)
PROC: 0T738DZ Dilation of Right Kidney Pelvis with Intraluminal Device, Via Natural or Artificial Opening Endoscopic (ICD-10-PCS; 2021-03-15)
PROC: 0TP98DZ Removal of Intraluminal Device from Ureter, Via Natural or Artificial Opening Endoscopic (ICD-10-PCS; 2021-03-15)
DX: A41.9 Sepsis, unspecified organism (principal); N39.0 Urinary tract infection, site not specified; N20.0 Calculus of kidney; E87.6 Hypokalemia; I48.91 Unspecified atrial fibrillation; I10 Essential (primary) hypertension; R79.89 Other specified abnormal findings of blood chemistry; I08.1 Rheumatic disorders of both mitral and tricuspid valves; F32.A Depression, unspecified; K59.00 Constipation, unspecified; M79.89 Other specified soft tissue disorders; E11.65 Type 2 diabetes mellitus with hyperglycemia; Z86.711 Personal history of pulmonary embolism; Z79.01 Long term (current) use of anticoagulants; Z88.1 Allergy status to other antibiotic agents; Z88.0 Allergy status to penicillin; Z79.899 Other long term (current) drug therapy; Z79.84 Long term (current) use of oral hypoglycemic drugs; Z90.49 Acquired absence of other specified parts of digestive tract; Z90.710 Acquired absence of both cervix and uterus; Z98.42 Cataract extraction status, left eye; Z98.41 Cataract extraction status, right eye
CPT/HCPCS: 36415; 36416; 71045; 71275; 76000; 80048; 80053; 82365; 83880; 84484; 85007; 85025; 85027; 85379; 87040; 87086; 88300; 93005; 93010; 93306; 96374; C2617; G0378; J1100; J1815; J1956; J2175; J2250; J2405; J2704; J3010; J3490; J7050; Q9961-U8; Q9967

== ENCOUNTER 2024-03-04 15:55 | Inpatient (IN) | payer MEDICARE ==
[2024-03-04] MEDS ORDERED: Senokot S 8.6-50 MG TAB PO PRN (16:51)
[2024-03-04 17:52] VITALS: BMI 29.8
[2024-03-04 18:12] LABS: Anion Gap 9 mmol/L (10-20); BUN (Urea Nitrogen) 18 mg/dL (9.8-20.1); Calc. Creatinine Clearance 42 mL/min (70-130); Calcium 9.6 mg/dL (7.8-10.44); Carbon Dioxide 24 mmol/L (23-31); Chloride 106 mmol/L (98-107); Estimated GFR 41; Glucose 128 mg/dL (83-110); Potassium 4.1 mmol/L (3.5-5.1); Sodium 135 mmol/L (136-145)
[2024-03-04] MEDS ORDERED: Apixaban 5 MG TAB PO SCH (21:00)
[2024-03-04] MEDS ORDERED: Insulin Lispro 100 UNIT/ML 10 ML VIAL SC PRN ×2 (21:16)
[2024-03-04] MEDS ORDERED: Dextrose 5% in Water 1,000 ML IV PRN (21:16)
[2024-03-04] MEDS ORDERED: Dextrose 50% Abboject 50 ML SYRINGE SLOW IVP PRN (21:16)
[2024-03-04] MEDS ORDERED: Glucagon 1 MG/ML KIT IM PRN (21:16)
[2024-03-04] MEDS: Lactated Ringer's 1,000 ML IV SCH ×2 (21:35→21:48)
[2024-03-04] MEDS: ALPRAZolam 0.5 MG TAB PO SCH (21:36)
[2024-03-04] MEDS: Metoclopramide HCl 10 MG (2 mL) VIAL IVP SCH (21:39)
[2024-03-04] MEDS: Fenofibrate Nanocrystallized 145 MG TAB PO SCH (21:48)
[2024-03-05 06:18] LABS: #Basophils Less than 0.03 10x3/uL (0.0-0.2); %Basophils 0.3 % (0.0-1.0); %Eosinophils 7.5 % (0.0-10.0); %Lymphocytes 18.1 % (21.0-51.0); %Neutrophils 59.1 % (42.0-75.0); Hematocrit 36.3 % (36.0-47.0); Hemoglobin 11.7 g/dL (12.0-16.0); Mean Corpuscular HGB CONC 32.2 g/dL (32.0-36.0); Mean Corpuscular Hemoglobin 30.5 pg (27.0-31.0); Mean Corpuscular Volume 94.8 fL (78.0-98.0); Mean Platelet Volume 9.9 fL (7.4-10.4); Platelet Count 202 10x3/uL (130-400); RBC Distribution Width 14.4 % (11.5-14.5); Red Blood Cell (RBC) Count 3.83 mill/uL (4.20-5.40)
[2024-03-05 06:38] LABS: Hemoglobin A1c 6.5 % (4.0-6.0)
[2024-03-05 06:41] LABS: Anion Gap 10 mmol/L (10-20); BUN (Urea Nitrogen) 15 mg/dL (9.8-20.1); Calc. Creatinine Clearance 63 mL/min (70-130); Calcium 8.9 mg/dL (7.8-10.44); Carbon Dioxide 25 mmol/L (23-31); Cardiac Risk 7.7 (Less than 4.5); Chloride 107 mmol/L (98-107); Cholesterol 138 mg/dl (< 200 Desired); Estimated GFR 67; Glucose 105 mg/dL (83-110); HDL Cholesterol 18 mg/dL (>60 Neg Risk); LDL Cholesterol, Calculated 84 mg/dL; Magnesium 1.7 mg/dL (1.6-2.6); Potassium 3.7 mmol/L (3.5-5.1); Sodium 138 mmol/L (136-145); Triglycerides 180 mg/dL (Less than 150)
[2024-03-05 06:42] LABS: Phosphorus 2.4 mg/dL (2.3-4.7)
[2024-03-05 08:16] LABS: Bilirubin Negative (Negative); Blood, Urine Trace (Negative); Clarity Turbid (Clear); Glucose, Urine (Dipstick) Normal (Negative); Ketone, Urine Negative (Negative); Leukocyte 500 Leu/uL (Negative); Nitrite Negative (Negative); Protein, Urine (Dipstick) Negative (Neg-Trace); Specific Gravity, Urine 1.014 (1.002-1.036); Squamous Epithelial 0-3 HPF (0-3); Urobilinogen Normal mg/dL (Less than 2); WBC/HPF Greater than 50 HPF (0-3); pH, Urine 5.5 (5.0-9.0)
[2024-03-05 08:17] LABS: Bacteria/HPF 1+ HPF (None Seen)
[2024-03-05] MEDS: Escitalopram Oxalate 20 mg Tablet PO SCH (09:04)
[2024-03-05] MEDS: Pantoprazole DR 40 MG TAB PO SCH (09:05)
[2024-03-05] MEDS: Acetaminophen 325 MG TAB PO PRN (09:05)
[2024-03-05 12:21] VITALS: BMI 29.8
[2024-03-05] MEDS ORDERED: Furosemide 20 MG TAB PO PRN (13:03)
[2024-03-05] MEDS: cefTRIAXone\\ROCEPHIN 2 GM in Sodium Chloride 0.9% 100 ML IVPB SCH (13:23)
[2024-03-05] MEDS: FLU (Fluad Triv) TS24-25 (65UP)/MF59C/PF 45 MCG/0.5 ML Syringe IM ONE (13:24)
[2024-03-05] MEDS ORDERED: Apixaban 5 MG TAB PO SCH (21:00)
[2024-03-05] MEDS: Pantoprazole 40 MG VIAL IVP SCH (21:11)
[2024-03-06] MEDS ORDERED: PROPOFOL 20 ML ONE (08:14)
[2024-03-06] MEDS ORDERED: Etomidate 40 MG (20 mL) VIAL ONE (08:14)
[2024-03-06] MEDS ORDERED: Lidocaine 1% PF 5 ML VIAL ONE (08:14)
[2024-03-06] MEDS ORDERED: Cosyntropin 250 MCG VIAL SLOW IVP SCH (09:00)
[2024-03-06] MEDS: Lisinopril 20 MG TAB PO SCH (09:44)
[2024-03-06] MEDS ORDERED: Iopamidol-370 76% 500 ML MDV (1 ML CHARGE) ONE (10:09)
[2024-03-06] MEDS ORDERED: Apixaban 5 MG TAB PO SCH (21:00)
[2024-03-07] MEDS: Cosyntropin 250 MCG VIAL SLOW IVP SCH (08:17)
[2024-03-08 04:23] LABS: #Basophils Less than 0.03 10x3/uL (0.0-0.2); %Basophils 0.3 % (0.0-1.0); %Eosinophils 7.3 % (0.0-10.0); %Lymphocytes 18.7 % (21.0-51.0); %Monocytes 14.2 % (0.0-10.0); %Neutrophils 59.2 % (42.0-75.0); Hematocrit 35.7 % (36.0-47.0); Hemoglobin 11.2 g/dL (12.0-16.0); Mean Corpuscular HGB CONC 31.4 g/dL (32.0-36.0); Mean Corpuscular Hemoglobin 29.9 pg (27.0-31.0); Mean Corpuscular Volume 95.5 fL (78.0-98.0); Mean Platelet Volume 9.8 fL (7.4-10.4); Platelet Count 210 10x3/uL (130-400); RBC Distribution Width 13.8 % (11.5-14.5); Red Blood Cell (RBC) Count 3.74 mill/uL (4.20-5.40)
[2024-03-08 04:44] LABS: ALT (SGPT) 6 U/L (8-55); AST (SGOT) 12 U/L (5-34); Albumin 2.2 g/dL (3.4-4.8); Alkaline Phosphatase 42 U/L (40-110); Anion Gap 8 mmol/L (10-20); BUN (Urea Nitrogen) 8 mg/dL (9.8-20.1); Bilirubin, Total 0.4 mg/dL (0.2-1.2); Calc. Creatinine Clearance 83 mL/min (70-130); Calcium 8.9 mg/dL (7.8-10.44); Carbon Dioxide 29 mmol/L (23-31); Chloride 104 mmol/L (98-107); Estimated GFR 85; Globulin 2.7 g/dL (2.4-3.5); Glucose 124 mg/dL (83-110); Potassium 3.6 mmol/L (3.5-5.1); Protein, Total 4.9 g/dL (5.8-8.1); Sodium 137 mmol/L (136-145)
[2024-03-08] MEDS: Potassium Chloride 20 MEQ TAB PO SCH (09:39)
[2024-03-08] MEDS: FLU (Fluad Triv) TS24-25 (65UP)/MF59C/PF 45 MCG/0.5 ML Syringe IM ONE (16:06)
[2024-03-09 04:53] LABS: #Basophils Less than 0.03 10x3/uL (0.0-0.2); %Basophils 0.3 % (0.0-1.0); %Lymphocytes 18.5 % (21.0-51.0); %Monocytes 17.3 % (0.0-10.0); %Neutrophils 56.6 % (42.0-75.0); Hematocrit 36.8 % (36.0-47.0); Hemoglobin 11.8 g/dL (12.0-16.0); Mean Corpuscular HGB CONC 32.1 g/dL (32.0-36.0); Mean Corpuscular Hemoglobin 30.3 pg (27.0-31.0); Mean Corpuscular Volume 94.4 fL (78.0-98.0); Mean Platelet Volume 9.5 fL (7.4-10.4); Platelet Count 211 10x3/uL (130-400)
[2024-03-09 05:32] LABS: ALT (SGPT) 6 U/L (8-55); AST (SGOT) 14 U/L (5-34); Albumin 2.4 g/dL (3.4-4.8); Alkaline Phosphatase 45 U/L (40-110); Anion Gap 12 mmol/L (10-20); BUN (Urea Nitrogen) 8 mg/dL (9.8-20.1); Bilirubin, Total 0.5 mg/dL (0.2-1.2); Calc. Creatinine Clearance 72 mL/min (70-130); Carbon Dioxide 27 mmol/L (23-31); Chloride 104 mmol/L (98-107); Estimated GFR 78; Globulin 2.8 g/dL (2.4-3.5); Glucose 106 mg/dL (83-110); Protein, Total 5.2 g/dL (5.8-8.1); Sodium 139 mmol/L (136-145)
[2024-03-09] MEDS: Ondansetron ODT 4 MG TAB PO PRN (15:19)
[2024-03-09] MEDS ORDERED: Metoclopramide HCl 10 MG TAB PO SCH (17:00)
[2024-03-09] MEDS: Metoclopramide HCl 10 MG TAB PO SCH (20:46)
[2024-03-09] MEDS: Apixaban 5 MG TAB PO SCH (20:49)
[2024-03-10 04:05] LABS: #Basophils Less than 0.03 10x3/uL (0.0-0.2); %Basophils 0.3 % (0.0-1.0); %Eosinophils 6.4 % (0.0-10.0); %Monocytes 16.1 % (0.0-10.0); %Neutrophils 56.9 % (42.0-75.0); Hematocrit 37.1 % (36.0-47.0); Hemoglobin 11.7 g/dL (12.0-16.0); Mean Corpuscular HGB CONC 31.5 g/dL (32.0-36.0); Mean Corpuscular Hemoglobin 30.3 pg (27.0-31.0); Mean Corpuscular Volume 96.1 fL (78.0-98.0); Mean Platelet Volume 9.5 fL (7.4-10.4); Platelet Count 225 10x3/uL (130-400); RBC Distribution Width 14.2 % (11.5-14.5); Red Blood Cell (RBC) Count 3.86 mill/uL (4.20-5.40)
[2024-03-10 04:49] LABS: ALT (SGPT) 6 U/L (8-55); AST (SGOT) 13 U/L (5-34); Albumin 2.4 g/dL (3.4-4.8); Alkaline Phosphatase 46 U/L (40-110); Anion Gap 11 mmol/L (10-20); BUN (Urea Nitrogen) 15 mg/dL (9.8-20.1); Bilirubin, Total 0.4 mg/dL (0.2-1.2); Calc. Creatinine Clearance 64 mL/min (70-130); Calcium 9.3 mg/dL (7.8-10.44); Carbon Dioxide 29 mmol/L (23-31); Chloride 104 mmol/L (98-107); Estimated GFR 68; Globulin 2.9 g/dL (2.4-3.5); Glucose 120 mg/dL (83-110); Potassium 3.8 mmol/L (3.5-5.1); Protein, Total 5.3 g/dL (5.8-8.1); Sodium 140 mmol/L (136-145)
[2024-03-10] MEDS: Bisacodyl 5 MG TAB PO PRN (14:31)
[2024-03-11 04:46] LABS: #Basophils Less than 0.03 10x3/uL (0.0-0.2); %Basophils 0.3 % (0.0-1.0); %Lymphocytes 19.2 % (21.0-51.0); %Monocytes 17.7 % (0.0-10.0); %Neutrophils 57.2 % (42.0-75.0); Hematocrit 36.9 % (36.0-47.0); Hemoglobin 11.3 g/dL (12.0-16.0); Mean Corpuscular HGB CONC 30.6 g/dL (32.0-36.0); Mean Corpuscular Hemoglobin 29.7 pg (27.0-31.0); Mean Corpuscular Volume 97.1 fL (78.0-98.0); Mean Platelet Volume 9.6 fL (7.4-10.4); Platelet Count 228 10x3/uL (130-400); RBC Distribution Width 14.1 % (11.5-14.5)
[2024-03-11 05:03] LABS: ALT (SGPT) 7 U/L (8-55); AST (SGOT) 13 U/L (5-34); Albumin 2.4 g/dL (3.4-4.8); Alkaline Phosphatase 47 U/L (40-110); Anion Gap 10 mmol/L (10-20); BUN (Urea Nitrogen) 14 mg/dL (9.8-20.1); Bilirubin, Total 0.4 mg/dL (0.2-1.2); Calc. Creatinine Clearance 70 mL/min (70-130); Calcium 9.1 mg/dL (7.8-10.44); Carbon Dioxide 29 mmol/L (23-31); Chloride 104 mmol/L (98-107); Estimated GFR 75; Glucose 125 mg/dL (83-110); Protein, Total 5.4 g/dL (5.8-8.1); Sodium 139 mmol/L (136-145)
[2024-03-11] MEDS ORDERED: FLU (Fluarix Triv) TS24-25(6MOS UP)/PF 45 MCG/0.5 ML Syringe ONE (14:04)
[2024-03-11] MEDS: FLU (Fluad Triv) TS24-25 (65UP)/MF59C/PF 45 MCG/0.5 ML Syringe IM ONE (14:08)
[2024-03-11 19:58] VITALS: BP 111/58; TEMP 97.7
== END 2024-03-11 15:02 | DRG 74 ==
LOC: 2SE 16:57
PROVIDERS: ADMIT Student in an Organized Health Care Education/Training Program; ATTEND Student in an Organized Health Care Education/Training Program
PROC: 0DJ08ZZ Inspection of Upper Intestinal Tract, Via Natural or Artificial Opening Endoscopic (ICD-10-PCS; principal; 2024-03-06)
DX: E11.43 Type 2 diabetes mellitus with diabetic autonomic (poly)neuropathy (principal); N17.9 Acute kidney failure, unspecified; E86.0 Dehydration; K31.84 Gastroparesis; M19.90 Unspecified osteoarthritis, unspecified site; Z88.0 Allergy status to penicillin; F32.A Depression, unspecified; N20.0 Calculus of kidney; N30.90 Cystitis, unspecified without hematuria; Z79.01 Long term (current) use of anticoagulants; Z79.899 Other long term (current) drug therapy; Z90.49 Acquired absence of other specified parts of digestive tract; Z90.710 Acquired absence of both cervix and uterus; Z98.890 Other specified postprocedural states; Z90.89 Acquired absence of other organs
CPT/HCPCS: 36415; 36416; 70450; 70551; 74174; 78264; 80048; 80053; 80061; 80400; 81001; 83036; 83735; 84100; 84443; 85025; 87077; 87086; 87186; 90653; A9541; J0696; J0834; J2470; J2704; J2765; J7120; Q0162; Q9967